=== PATIENT | female | born 1940 | race Caucasian/White ===

== ENCOUNTER → 2023-07-14 12:59 | Outpatient (REF) | payer MEDICARE, BC, SELFPAY ==
[2023-07-14 15:44] LABS: Free T4 0.85 ng/dl (0.78-2.19)
[2023-07-14 15:58] LABS: TSH 0.17 uIU/ml (0.47-4.68)
== END ==
LOC: HWLAB 12:59
PROVIDERS: ATTENDING PHYSICIAN Internal Medicine Endocrinology, Diabetes & Metabolism; FAMILY PHYSICIAN Internal Medicine
DX: E05.20 Thyrotoxicosis with toxic multinodular goiter without thyrotoxic crisis or storm (principal)
CPT/HCPCS: 36415; 84439; 84443

== ENCOUNTER → 2023-08-05 12:53 | Outpatient (REF) | payer MEDICARE, BC, SELFPAY ==
[2023-08-05 15:58] LABS: Urine Albumin Negative (Neg - Trace); Urine Bilirubin Negative (Negative); Urine Character Clear (Clear); Urine Color Yellow; Urine Glucose Negative (Negative); Urine Ketone Negative (Negative); Urine Leukocyte Negative (Negative); Urine Nitrite Negative (Negative); Urine Occult Blood Negative (Negative); Urine Urobilinogen Negative (Neg - 1+)
== END ==
LOC: HWLAB 12:53
PROVIDERS: ATTENDING PHYSICIAN Internal Medicine
DX: R10.9 Unspecified abdominal pain (principal); R10.30 Lower abdominal pain, unspecified
CPT/HCPCS: 81003; 87086

== ENCOUNTER 2023-08-06 23:58 | Inpatient (IN) | payer MEDICARE, BC, SELFPAY ==
[2023-08-06 18:07] VITALS: BP 151/93
[2023-08-06 18:41] VITALS: BP 136/87
[2023-08-06 18:49] LABS: % Basophils 0.3 % (0-2); % Eosinophils 2.1 % (0-6); % Immature Granulocytes 0.3 % (0-0.5); % Lymphocytes 14.2 % (20.5-51.1); % Monocytes 10.3 % (1.7-9.3); % Neutrophils 72.8 % (42.2-75.2); Absolute Eosinophils 0.2 10^3/uL (0-0.7); Absolute Lymphocytes 1.3 10^3/uL (1.2-3.4); Absolute Neutrophils 6.8 10^3/uL (1.4-6.5); Hematocrit 31.1 % (37.0-47.0); Hemoglobin 10.5 g/dL (12.0-16.0); Mean Corp Hgb Conc. 33.8 g/dL (33.0-37.0); Mean Corpuscular Hgb 29.7 pg (27.0-31.0); Mean Corpuscular Volume 88.1 fL (81.0-99.0); Mean Platelet Volume 8.7 fL (7.4-10.4); Nucleated Red Blood Cells % 0 %; Platelet Count 306 10^3/uL (130-400); Red Blood Cell Count 3.53 10^6/uL (4.20-5.40); Red Cell Dist. Width 13.3 % (11.5-14.5); White Blood Cell Count 9.3 10^3/uL (4.8-10.8)
[2023-08-06 19:00] VITALS: BP 131/72
--- NOTE | 2023-08-06 19:05 | ED.GENMED ---
History of Present Illness
General
Chief Complaint: Rectal Bleeding
Source: patient
Exam Limitations: none
Time Seen by Provider: 08/06/23 18:26
Nursing documentation reviewed up to this point in time: agreed with
Travel History
Have you had any contact with someone who has COVID-19?: No
Do you have any symptoms of coronavirus? Fever > 100 degrees, chills, cough, shortness of breath, sore throat, loss of taste or smell, muscle aches, or headache?: No
History of Present Illness
History of Present Illness:
Patient is an 82-year-old female presents to the ER for evaluation. Patient had an emergent laparotomy for bowel obstruction with extended right colectomy ileostomy and had a scheduled robotic ileostomy closure on 05/06. During that time she had
acute kidney injury as well as C. difficile and had incisional cellulitis and hyponatremia.
Patient presents to the ER today with complaints of constipation for the past several days and abdominal pain for the past 6 days. She reports it is left-sided and lower abdomen. She has had some back pain with it today. She did have 5 episodes
of bright red blood per rectum with clots .. She was trying to move her bowels however instead bright red blood was produced and not stool. She has been intermittently constipated. She denies any nausea vomiting fever chills. She denies urinary
frequency urgency or dysuria.
She denies any lightheaded dizziness.
She did speak to Dr. Hayward who recommended she come
Past History
Past History
ED Past Medical History: HTN, Hypercholesterolemia and Other (colitis, bleeding diverticuli)
ED Past Surgical History: Other
Social History
Tobacco: Non-smoker
Alcohol: Occasional
Drug: None
Personal:
Living: with family
Review of Systems
Review of Systems
Allergies reviewed?: Yes
All Other Systems: ROS reviewed and negative except as documented in HPI and ROS
Constitutional: Reports no symptoms; Denies fever, fatigue or chills
EENT: Reports no symptoms
Respiratory: Reports no symptoms
ABD/GI: Reports abdominal pain, nausea, constipated and other (bright red blood per rectum )
: Reports no symptoms; Denies flank pain, urgency or discharge
Musculoskeletal: Reports no symptoms
Skin: Reports no symptoms
Neurological: Reports no symptoms
Psychiatric: Reports no symptoms
Phy Exam
General Physical Exam
General Presentation: no apparent distress
General age: appears stated age
General Skin: warm and dry
General Habitus: normal
General Mental: alert
General Hydration: appears well hydrated
Gastrointestinal Exam
Gastrointestinal Exam: soft and other (tender left sided abd/lower abd region rectal exam: no active bleeding , small amt of bright red blood in rectum )
Neurological Exam
Neurological Exam: alert and oriented x3
Musculoskeletal Exam
Musculoskeletal Exam: full ROM
Skin Exam
Skin Exam: normal color and warm/dry
Psychiatric Exam
Psychiatric Exam: normal mood/affect
Course
Orders/Labs/Results
Orders:
Orders
08/06/23 18:44
Type+Screen Urgent
Complete Blood Count/With Diff Urgent
Comprehensive Metabolic Panel Urgent
08/06/23 19:21
0.9% Sodium Chloride 1000 ml [Nss] 1,000 ml IV BOLUS
08/06/23 19:30
Iohexol [Omnipaque] See Protocol PO NOW STA
08/06/23 19:31
CT Abd/pel W Iv And Oral Contr Urgent
Comment:
Reason For Exam: left sided /lower abd pain hx of bowel surg in pas
Iohexol [Omnipaque] 50 ml .ROUTE .STK-MED ONE
Ondansetron Injectable [Zofran] 4 mg IV NOW STA
Abnormal Lab Results
08/06/23
18:44
RBC 3.53 L 10^6/uL
(4.20-5.40)
Hgb 10.5 L g/dL
(12.0-16.0)
Hct 31.1 L %
(37.0-47.0)
Absolute Neuts (auto) 6.8 H 10^3/uL
(1.4-6.5)
Absolute Monos (auto) 1.0 H 10^3/uL
(0.1-0.6)
Lymphocytes % 14.2 L %
(20.5-51.1)
Monocytes % 10.3 H %
(1.7-9.3)
Sodium 133 L mmol/L
(135-145)
BUN 24 H mg/dl
(7-17)
Creatinine 1.4 H mg/dL
(0.6-1.0)
Glucose 113 H mg/dl
(70-99)
08/06/23 18:44
08/06/23 18:44
Vital Signs
Initial and Last Documented VS:
Initial Vital Signs
Temp Pulse Resp BP Pulse Ox
98.1 F 88 18 151/93 99
08/06/23 18:07 08/06/23 18:07 08/06/23 18:07 08/06/23 18:07 08/06/23 18:07
Last Documented Vital Signs
Temp Pulse Resp BP Pulse Ox
98.1 F 74 27 136/87 96
08/06/23 18:07 08/06/23 18:45 08/06/23 18:45 08/06/23 18:41 08/06/23 18:45
MDM/Problems Addressed
Differential Diagnosis Includes:
Not limited to GI bleed, diverticulitis colitis
MDM/Problems Addressed:
Patient is an 82-year-old female with history documented above with ileostomy with reversal presents to the ER complaining abdominal pain for the past several days with constipation. Today she had 5 episodes of bright red blood per rectum. She is
not on thinners. CAT scan performed no acute pathology. Patient has since also had 2 additional visits here in the ER for total of 7. Hemoglobin is stable at 10.5. Patient with mild increased BUN/creatinine. Will continue to observe for serial
hemoglobins and recheck. Patient no acute distress nontachycardic stable vital signs. adm to the hosp service
Chronic conditions affecting care:
History of ileostomy closure
*Radiology
Radiology exam reviewed: radiology read reviewed
*Pulse Oximetry
Patient hypoxic: no
*Critical Care Note
Total Time (30-74mins, 75-104mins- exclusive of procedures): Not Applicable
ED Attending Note
-
Portions of this chart may have been created with voice recognition software.� Occasional wrong word or��sound alike� substitutions may have occurred due to the inherent limitations of voice recognition software.
Discharge Plan
Departure
Patient Disposition: Admit
Date of Disposition: 08/06/23
Time of Disposition: 23:33
Admit to: Med/Surg
Admit to doctor: hospitalist
Presentation/result/management discussed w/ accepting MD/DO: Hospitalist
Condition: Fair
Covid-19: Not Applicable
Discharge Problem:
Bright red rectal bleeding, Anemia, renal insufficiency
Prescriptions:
No Action
calcium carbonate-vitamin D3 600 mg-5 mcg (200 unit) Tablet
1 tab PO BID
diltiazem HCl 240 mg Capsule,Extended Release 24 Hr
240 mg PO DAILY Qty: 0 0RF
Align 4 mg Capsule
4 mg PO DAILY
potassium chloride 20 mEq Tablet Extended Release
20 meq PO BID
cholecalciferol (vitamin D3) [Vitamin D3] 50 mcg (2,000 unit) Capsule
50 mcg PO DAILY
acetaminophen [Tylenol] 325 mg Tablet
325 mg PO Q6HPRN PRN (Reason: mild pain)
cyanocobalamin (vitamin B-12) 1,000 mcg Tablet
1,000 mcg PO DAILY
calcium polycarbophil [FiberCon] 625 mg Tablet
625 mg PO HS
pravastatin 20 mg Tablet
20 mg PO QPM
gabapentin 300 mg Capsule
600 mg PO BID
docusate sodium [Colace] 100 mg Capsule
100 mg PO HS
Referrals:
Phillip Smith DO [Family Provider] -
Interventions
Interventions:
*Risk Screen - Suicide Last Done: 08/06/23 18:07
*General Assessment Last Done: 08/06/23 18:07
*Neglect/Abuse Screening Last Done: 08/06/23 18:07
ED- Fall Risk Assessment Last Done: 08/06/23 18:55
*ED COVID-19 Vaccine History Last Done: 08/06/23 18:07
ZX-Lakpms-Vwjjrcogyx Assessment Last Done: 08/06/23 18:55
ED- Cardiac Assessment Last Done: 08/06/23 18:55
ED- Pulmonary Assessment Last Done: 08/06/23 18:55
[2023-08-06 19:10] LABS: ALT (SGPT) 15 U/L (0-35); AST (SGOT) 22 U/L (14-36); Albumin 4.2 g/dl (3.5-5.0); Alkaline Phosphatase 84 U/L (38-126); Blood Urea Nitrogen 24 mg/dl (7-17); Calcium 9.6 mg/dl (8.4-10.2); Carbon Dioxide 25 mmol/L (22-30); Chloride 102 mmol/L (98-107); Glucose 113 mg/dl (70-99); Potassium 4.5 mmol/L (3.5-5.1); Sodium 133 mmol/L (135-145); Total Bilirubin 0.3 mg/dl (0.2-1.3); Total Protein 7.4 g/dl (6.3-8.2); eGFR 37.33
[2023-08-06] MEDS: OMNIPAQUE 50 ML PO (19:36)
[2023-08-06] MEDS: NSS 1000 IV (19:39)
[2023-08-06 20:00] VITALS: BP 168/85
[2023-08-06 21:00] VITALS: BP 178/80
[2023-08-06 22:00] VITALS: BP 156/82
--- NOTE | 2023-08-06 23:59 | HPS.HSE ---
Family Physician
-
Family Physician: Phillip Smith
Chief Complaint
-
Lower GI bleeding
History of Present Illness
Patient is a pleasant 82 years old with history of hyperlipidemia, hypertension, history of bowel obstruction with extended right colectomy/ileostomy status post robotic ileostomy closure on May 06, who came to the ER with rectal bleeding.
Rectal bleeding started today morning around 11 AM, patient had 5 episodes at home and 2 episodes at the hospital.
I personally saw the bowel movement which contained bright red blood with blood clots.
Patient also was complaining of suprapubic pain and left lower quadrant pain.
Patient seen and examined at bedside, denies any chest pain or shortness of breath, no nausea, no vomiting, patient was having constipation since Thursday and she called her surgeon and advised to take Metamucil and MiraLAX.
CT scan done in the ER showed no acute finding
Medical History
Past Medical History
Past Medical History: Reports Other
Additional Past Medical History:
HTN, Hypercholesterolemia and Other (colitis, bleeding diverticuli)
Past Surgical History: Reports Other
Additional Past Surgical History:
mergent laparotomy for bowel obstruction with extended right colectomy ileostomy and had a scheduled robotic ileostomy closure on 05/06.
Social History
Tobacco: Non-smoker
Alcohol: Occasional
Personal:
Living: With Family
Family History
Family History: Not pertinent
Allergies / Home Medications
Allergies reflects when Allergies were last updated in [facility].
Home Medications with original date entered in [facility]
Allergy/Medication List:
Allergies
Allergy/AdvReac Type Severity Reaction Status Date / Time
codeine [Codeine] Allergy vomiting,di Verified 06/04/23 07:10
zziness
morphine Allergy Nausea / Verified 06/04/23 07:10
Vomiting
oxycodone HCl [From Percocet] Allergy vomiting,di Verified 06/04/23 07:10
zziness
Penicillins Allergy 50 yrs Verified 06/04/23 07:10
ago>rash,swelling
of tongue
Home Medications
calcium carbonate 600 mg-vitamin D3 5 mcg (200 unit) tablet 1 tab PO BID Supplement 01/02/23
diltiazem HCl 240 mg capsule,24 hr,extended release 240 mg PO DAILY #0 caps 01/30/23
Bifidobacterium infantis 4 mg capsule (Align) 4 mg PO DAILY Probiotic 05/25/23
cholecalciferol (vitamin D3) 50 mcg (2,000 unit) capsule (Vitamin D3) 50 mcg PO DAILY Supplement 05/25/23
potassium chloride 20 mEq tablet,extended release 20 meq PO BID Electrolyte Repletion 05/25/23
acetaminophen 325 mg tablet (Tylenol) 325 mg PO Q6HPRN PRN mild pain 06/04/23
calcium polycarbophil 625 mg tablet (FiberCon) 625 mg PO HS Supplement 06/04/23
cyanocobalamin (vitamin B-12) 1,000 mcg tablet 1,000 mcg PO DAILY Supplement 06/04/23
pravastatin 20 mg tablet 20 mg PO QPM High Cholesterol 06/04/23
docusate sodium 100 mg capsule (Colace) 100 mg PO HS 08/06/23
gabapentin 300 mg capsule 600 mg PO BID 08/06/23
Review of Systems
-
A 12 point ROS was completed and negative except as noted: Yes
Constitutional: Denies Fever, Weight Gain, Weight Loss, Fatigue or Sleep Disturbance
EENT: Denies Tearing, Sore Throat, Mouth Pain, Mouth Swelling or Runny Nose
Respiratory: Denies Cough, Hemoptysis or Trouble Breathing
Cardiac: Denies Chest Pain, Diaphoresis, Palpitations or Syncope
Abdomen/GI: Reports Abdominal Pain, Constipated and Bloody Stools; Denies Nausea, Vomiting, Diarrhea or Black Stools
: Denies Dysuria, Frequency, Flank Pain, Incontinence, Difficulty Voiding, Urgency, Bleeding or Dark Urine
Musculoskeletal: Denies Joint Pain, Joint Swelling, Muscle Pain, Muscle Stiffness or Edema
Skin: Denies Itching or Rash
Neurological: Denies Dizzy, Headache, Weakness or Numbness
Endocrine: Denies Polyuria, Polydipsia or Temp Intolerance
Hematologic/Lymphatic: Denies Bleeding, Swollen Glands or Bruising
Psych: Reports Calm; Denies Depression, Anxiety or Panic Disorder
Physical Exam
Vital Signs
Vital Signs
Temp Pulse Resp BP Pulse Ox
98.1 F 73 16 156/82 97
08/06/23 18:07 08/06/23 23:30 08/06/23 23:30 08/06/23 22:00 08/06/23 23:30
Physical Exam
General: Well Developed, Well Nourished, No Apparent Distress, Comfortable and Good Appetite; No Pain, Chills or Sweats
HEENT: NormoCephalic, Moist mucous membranes, Atraumatic, Good Dentition, PERRLA, Nose Appears Normal and Ears Appear Normal
Respiratory: Clear
Cardiac: S1/S2 and Regular Rhythm
Breast: Deferred by me
GI: Soft, Non Distended, Normal Bowel Sounds and Tender
Genito-urinary: Deferred by me
Musculoskeletal: No Clubbing, No Cyanosis and No Edema
Skin: Warm; No Rash, Jaundice, Ulcers, Lesions or Decubitus Ulcers
Neuro: Awake, Alert, Oriented, AO x 3, No Motor Deficits, Nonfocal/grossly intact and Cranial Nerves Intact
Hematologic/Lymphatic: No Lymphadenopathy
Psych: Calm
Laboratory Results
-
08/06/23 18:44
08/06/23 18:44
Laboratory Results
Total Bilirubin 0.3 mg/dl (0.2-1.3) 08/06/23 18:44
AST 22 U/L (14-36) 08/06/23 18:44
ALT 15 U/L (0-35) 08/06/23 18:44
Alkaline Phosphatase 84 U/L (38-126) 08/06/23 18:44
Data Reviewed
-
Diagnostic Radiology: Report Reviewed by me
CT Scan: Report Reviewed by me
Medical Tests (Nuc Med, Echo, EKG etc): Report Reviewed by me
Lab Data: Labs Reviewed by me
Old Records: Reviewed
Impression/Plan
-
IMPRESSION:
Patient has 82 years old with history of emergent laparotomy for bowel obstruction with extended right colectomy ileostomy, status post robotic ileostomy closure on 05/06, who came to the ER with rectal bleeding.
PLAN:
Rectal bleeding.
Patient had 7 episodes so far.
Started today.
With history of intestinal obstruction status post colectomy end ileostomy, status post robotic colostomy closure, will consult colorectal surgery.
Hemoglobin stable.
CT shows no acute finding.
Patient has a history of diverticular bleed, could be secondary to diverticulosis exacerbated by constipation.
Clear liquid diet for now.
IV fluid
health inspector food
Continue to monitor hemoglobin
History of hyperlipidemia
Continue statin
CODE STATUS: Full code
DVT prophylaxis: SCD
Diet: Regular diet
[2023-08-07] VITALS (8 sets, daily range): BP systolic 115–165; BP diastolic 63–90; BMI 27.0
[2023-08-07] MEDS: NSS 1000 IV ×2 (01:15→13:12)
[2023-08-07 01:36] LABS: Urine Albumin Negative (Neg - Trace); Urine Bilirubin Negative (Negative); Urine Character Clear (Clear); Urine Color Straw; Urine Glucose Negative (Negative); Urine Ketone Negative (Negative); Urine Leukocyte Negative (Negative); Urine Nitrite Negative (Negative); Urine Occult Blood Negative (Negative); Urine Urobilinogen Negative (Neg - 1+)
[2023-08-07] MEDS: CARDIZEM 60 MG PO (02:02)
[2023-08-07 04:54] LABS: Hematocrit 27.8 % (37.0-47.0); Hemoglobin 9.5 g/dL (12.0-16.0); Mean Corp Hgb Conc. 34.2 g/dL (33.0-37.0); Mean Corpuscular Hgb 29.9 pg (27.0-31.0); Mean Corpuscular Volume 87.4 fL (81.0-99.0); Mean Platelet Volume 9.1 fL (7.4-10.4); Platelet Count 291 10^3/uL (130-400); Red Blood Cell Count 3.18 10^6/uL (4.20-5.40); Red Cell Dist. Width 13.3 % (11.5-14.5); White Blood Cell Count 7.9 10^3/uL (4.8-10.8)
[2023-08-07 05:20] LABS: Blood Urea Nitrogen 20 mg/dl (7-17); Calcium 8.9 mg/dl (8.4-10.2); Carbon Dioxide 25 mmol/L (22-30); Chloride 106 mmol/L (98-107); Estimated Creatinine Clearance 31 ml/min; Glucose 90 mg/dl (70-99); Magnesium 2.2 mg/dl (1.6-2.3); Potassium 4.3 mmol/L (3.5-5.1); Sodium 135 mmol/L (135-145); eGFR 44.91
[2023-08-07 05:48] LABS: TSH 2.11 uIU/ml (0.47-4.68)
[2023-08-07] MEDS: NEURONTIN 600 MG PO ×2 (08:08→21:15)
[2023-08-07] MEDS: VISBIOME 1 CAP PO (08:09)
[2023-08-07] MEDS: CARDIZEM CD 240 MG PO (08:09)
--- NOTE | 2023-08-07 10:31 | PTCARENOTE ---
pt admitted to [facility] overnight. 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 pt is aaox3 and came in due to having bloody stools at home. pt has not had a bloody bm since she was
admitted to [facility] per nightshift and none so far for this nurse this morning. pt on a clear liquid diet at this time and tolerated for breakfast. colorectal consulted on this pt. hgb stable. VSS. pt ordered foot pumps but refused for this nurse this AM
at this time.
--- NOTE | 2023-08-07 12:31 | CON.CRS ---
Addendum entered and electronically signed by Madhu Moser MD 08/07/23 16:46:
I saw and examined the patient.
The PA's note was reviewed and I agree with the note.
Comment:
Patient seen in a.m. with PA.
History, labs, vitals, imaging reviewed. Patient seen and examined.
82-year-old female with a history of extended right colectomy with ileostomy and mucous fistula creation and later robotic ileostomy takedown with ileal transverse colon anastomosis by my partner Dr. Hayward last year. This was due to ischemia of the
right colon. Admitted to the hospital overnight with 7 passages of transanal clots. Etiology unknown. Hemoglobin in the ER 10.5. Down to 9.[address] scan of the abdomen and pelvis (not a CT angio) reviewed and shows diverticular
disease and no other bowel pathology. Last colonoscopy in 2022 confirmed diverticular disease. On exam at the bedside she has a normal JI. She has very mild left lower quadrant tenderness to deep palpation. Patient stable and not in extremis.
Again, etiology of bleeding is unclear. I suspect this is diverticular and will clear up. Recommend gastroenterology consultation.
Thanks.
Original Note:
Consultation
-
Date/Time Consultation Requested: 08/07/2023, 00:38
Date/Time Consultation Performed: 08/07/2023, 08:45
Requesting Provider: Lala Rhoades MD
Performing Provider: Madhu Moser MD
Reason for Consultation: rectal bleeding
Medical History
-
Chief Complaint: rectal bleeding
History of Present Illness:
82-year-old female presents emergency room yesterday complaining of rectal bleeding. The patient is a known patient of Dr. Hayward's as he performed an extended right colectomy with ileostomy and mucous fistula of the distal transverse colon on
01/30/2023 2 days after left shoulder surgery. There was ischemic right colon with patchy necrosis extending to the mid transverse colon. 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 She then underwent a robotic closure of her
ileostomy and mucous fistula on 06/05/2023. At the time of surgery there were multiple adhesions in the ileum with anastomosis to her mid/distal transverse colon.
She states that she has been constipated for about a week. She had been straining quite often and was having irregular bowel movements. She noticed large clots passing but no stool. She spoke with Dr. Hayward who advised her to undergo a CT of the
pelvis and blood work that was scheduled for today. However the patient did not want to wait and came to the emergency department. She has had 2 more bleeding episodes since arrival to the ER.
The patient states she has had diverticular bleeds before in the past. Her last colonoscopy was in 2022 which showed diverticulosis in the sigmoid colon and in the descending colon. She complains of some left-sided abdominal pain. Currently her
hemoglobin is 9.[address] of the abdomen and pelvis shows al signs are normal. No acute pathology of the abdomen or pelvis identified. There is severe diverticulosis which is stable. We have been consulted for further surgical opinion.
Past Medical History
Past Medical History: HTN, Hypercholesterolemia and Other (Diverticular bleed)
Past Surgical History: Bowel Resection (Emergent laparotomy for bowel obstruction with extended right colectomy, ileostomy, ileostomy closure)
Social History
Tobacco: Non-Smoker
Alcohol: Occasional
Personal:
Family History
Family History: Reviewed & Not Pertinent
Allergies / Home Medications
Allergy/AdvReac Type Severity Reaction Status Date / Time
codeine [Codeine] Allergy vomiting,di Verified 06/04/23 07:10
zziness
morphine Allergy Nausea / Verified 06/04/23 07:10
Vomiting
oxycodone HCl [From Percocet] Allergy vomiting,di Verified 06/04/23 07:10
zziness
Penicillins Allergy 50 yrs Verified 06/04/23 07:10
ago>rash,swelling
of tongue
Medication Instructions Recorded Confirmed Type
calcium carbonate 600 mg-vitamin 1 tab PO BID Supplement 01/02/23 08/06/23 History
D3 5 mcg (200 unit) tablet
diltiazem HCl 240 mg capsule,24 240 mg PO DAILY #0 caps 01/30/23 08/06/23 Rx
hr,extended release
Bifidobacterium infantis 4 mg 4 mg PO DAILY Probiotic 05/25/23 08/06/23 History
capsule (Align)
cholecalciferol (vitamin D3) 50 50 mcg PO DAILY Supplement 05/25/23 08/06/23 History
mcg (2,000 unit) capsule (Vitamin
D3)
potassium chloride 20 mEq 20 meq PO BID Electrolyte Repletion 05/25/23 08/06/23 History
tablet,extended release
acetaminophen 325 mg tablet 325 mg PO Q6HPRN PRN mild pain 06/04/23 08/06/23 History
(Tylenol)
calcium polycarbophil 625 mg 625 mg PO HS Supplement 06/04/23 08/06/23 History
tablet (FiberCon)
cyanocobalamin (vitamin B-12) 1,000 mcg PO DAILY Supplement 06/04/23 08/06/23 History
1,000 mcg tablet
pravastatin 20 mg tablet 20 mg PO QPM High Cholesterol 06/04/23 08/06/23 History
docusate sodium 100 mg capsule 100 mg PO HS Constipation 08/06/23 08/06/23 History
(Colace)
gabapentin 300 mg capsule 600 mg PO BID pain 08/06/23 08/06/23 History
Review of Systems
-
History Source: Patient
Abdomen/GI: Bloody Stools
A 10 point review of systems was completed, and was negative except as per HPI.
Physical Exam
Vital Signs
Temp 98.0 F 08/07/23 07:15
Pulse 68 08/07/23 07:15
Resp Rate 16 08/07/23 07:15
Blood pressure 141/78 08/07/23 08:09
SaO2 98 08/07/23 07:15
08/06/23 08/07/23 08/08/23
06:59 06:59 06:59
Actual Weight 64.773 kg
Body Mass Index (BMI) 27.0
Lab Results / Allergies
08/07/23 03:59
08/07/23 03:59
WBC 7.9 10^3/uL (4.8-10.8) 08/07/23 03:59
Hgb 9.5 g/dL (12.0-16.0) L 08/07/23 03:59
Hct 27.8 % (37.0-47.0) L 08/07/23 03:59
Plt Count 291 10^3/uL (130-400) 08/07/23 03:59
Abs Immat Gran (auto) 0.0 10^3/uL (0-0.05) 08/06/23 18:44
Neutrophils % 72.8 % (42.2-75.2) 08/06/23 18:44
Allergy/AdvReac Type Severity Reaction Status Date / Time
codeine [Codeine] Allergy vomiting,di Verified 06/04/23 07:10
zziness
morphine Allergy Nausea / Verified 06/04/23 07:10
Vomiting
oxycodone HCl [From Percocet] Allergy vomiting,di Verified 06/04/23 07:10
zziness
Penicillins Allergy 50 yrs Verified 06/04/23 07:10
ago>rash,swelling
of tongue
Physical Exam
General: Well Developed and Well Nourished
GI: Soft, Non Tender and Distended
Rectal: Other (Normal tone, no external hemorrhoids noted, possibly a small speck of blood on the gloved finger)
Neuro: AO x 3
Psych: Calm
Data Reviewed
-
CT Scan: Image Personally Visualized and interpreted, Report Reviewed by me and Discussed with Patient
Labs: Labs Reviewed by me, Discussed with Physician and Discussed with Patient
Old Records: Reviewed
Assessment / Plan
-
Assessment: 82-year-old female with a history of emergent laparotomy with extended right colectomy and ileostomy status post reversal presents with rectal bleeding
Plan:
There is no indication for surgery at this time. She had a recent colonoscopy which showed diverticulosis. Her anal exam is essentially benign. We recommend a gastroenterology consult for further workup of the bleeding.
--- NOTE | 2023-08-07 12:48 | W.PN.HOSP.TC ---
Today's Communication/Plan
-
GI consulted
monitor CBC
Diet as per GI
Assessment / Plan
Assessment / Plan
Physical Exam
General: Well Developed, Well Nourished, No Apparent Distress, Comfortable and Good Appetite; No Pain, Chills or Sweats
HEENT: NormoCephalic, Moist mucous membranes, Atraumatic, Good Dentition, PERRLA, Nose Appears Normal and Ears Appear Normal
Respiratory: Clear
Cardiac: S1/S2 and Regular Rhythm
Breast: Deferred by me
GI: Soft, Non Distended, Normal Bowel Sounds and Tender
Genito-urinary: Deferred by me
Musculoskeletal: No Clubbing, No Cyanosis and No Edema
Skin: Warm; No Rash, Jaundice, Ulcers, Lesions or Decubitus Ulcers
Neuro: Awake, Alert, Oriented, AO x 3, No Motor Deficits, Nonfocal/grossly intact and Cranial Nerves Intact
Hematologic/Lymphatic: No Lymphadenopathy
Psych: Calm
IMPRESSION:
Patient has 82 years old with history of emergent laparotomy for bowel obstruction with extended right colectomy ileostomy, status post robotic ileostomy closure on 05/06, who came to the ER with rectal bleeding.
PLAN:
Rectal bleeding
Acute Blood Loss Anemia
Patient had 7 episodes ; none since yesterday
rectal exam unremarkable as per CRS, most likely diverticular bleed
GI consulted
Can advance diet for now until further plans from GI
Continue to monitor hemoglobin
History of hyperlipidemia
Continue statin
#Hyponatremia, POA
-resolved
#Diffuse bladder thickening
-monitor UO
-no urinary/UTI symptoms
CODE STATUS: Full code
DVT prophylaxis: SCD due to bleed
Diet: Regular diet
Anticipated Discharge: 24 - 48 hours
Subjective/Interval History
-
Date of Service: August 07, 2023
No episodes of bleeding since yesterday
Objective Data
-
Labs:
Laboratory Results
08/07/23
03:59
WBC 7.9
Hgb 9.5 L
Hct 27.8 L
Plt Count 291
Sodium 135
Potassium 4.3
Chloride 106
Carbon Dioxide 25
BUN 20 H
Creatinine 1.2 H
Glucose 90
Calcium 8.9
Vital Signs:
Vital Signs
Temp Pulse Resp BP Pulse Ox
97.8 F 61 16 115/63 98
08/07/23 11:10 08/07/23 11:10 08/07/23 11:10 08/07/23 11:10 08/07/23 11:10
I&O
08/06/23 08/07/23 08/08/23
06:59 06:59 06:59
Intake Total 480 / 480
Balance 480 / 480
Review of Systems
-
History Source: Patient
All other systems: Not reviewed unless documented
Physical Exam
-
General: No Apparent Distress
HEENT: PERRLA
Respiratory: Clear to Auscultation; Negative Wheezes
Cardiac: S1/S2
GI: Soft
Musculoskeletal: No Edema
Skin: Warm and Dry; Negative Rash
Neuro: AO x 3
Psych: Calm
Data Reviewed
-
CT Scan: Image personally visualized and interpreted and Report Reviewed by me
Labs: Labs Reviewed by me
--- NOTE | 2023-08-07 13:25 | CON.GI ---
Addendum entered and electronically signed by Bruna Rojas MD 08/07/23 17:30:
I saw and examined the patient.
The CASING MIXER or PA's note was reviewed and I agree with the note.
Comment:
This patient is an 82-year-old woman with a history of hypertension, diverticular bleed with prior bowel obstruction and extended right colectomy. She did have a closure of prior ileostomy in May as well as a colonoscopy in April with known
diverticular disease. She did have abdominal pain and back pain with some rectal bleeding which is now improved. She did have a CAT scan with no acute findings. She did have a bowel movement today with only traces amount of red blood at the end.
She did not have any abdominal pain. She does note extensive constipation and feels that that may have provoked it as she was straining. She did get a laxative today and states that she markedly feels better
abd; soft, nontender
impression:
constipation
rectal bleeding
plan:
continue colace
pt would like prune juice
could be hemorrhoids with straining and use anusol HC nightly
follow hgb
outpatient f/u
Original Note:
Consultation
-
Date/Time Consultation Requested: 08/07/23 1240
Date/Time Consultation Performed: 08/07/23 1330
Requesting Provider: Eugenio Ruth MD
Performing Provider: NOEL Pool, Bruna Rojas MD
Reason for Consultation: rectal bleeding
Medical History
Chief Complaint / HPI
Chief Complaint: rectal bleeding
History of Present Illness:
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 she had robotic closure
of ileostomy mucous fistula in May. She now presents with onset of constipation with straining. She then had abdominal pain with back pain then rectal bleeding, passing large clots with about 7 episodes. Bleeding now improved. CT A/p IV
and oral with no acute findings, renal cysts, diverticulosis, bladder wall thickening.
Pt otherwise denies dysphagia, GERD, nausea, vomiting,diarrhea or black stools. last 03/31/23- colonoscopy -diverticulosis
Past Medical History
Past Medical History: HTN, Hypercholesterolemia and Other (chronic constipation, colon polyps, HTN, hypercholesterolemia, colitis, diverticulosis with prior diverticular bleed, temporal arteritis, spinal stenosis, gout,)
Past Surgical History: Bowel Resection (with extended right colectomy/ileostomy s/p robotic ileostomy closure 05/2023 ) and Orthopedic (b/l shoulder surgery )
Social History
Tobacco: Former Smoker
Alcohol: Occasional (rare )
Drug: None
Personal:
Living: With Family
Employment: Retired
Family History
Family History: Other (no family hx colon CA or polyps)
Allergies / Home Medications
Allergy/AdvReac Type Severity Reaction Status Date / Time
codeine [Codeine] Allergy vomiting,di Verified 06/04/23 07:10
zziness
morphine Allergy Nausea / Verified 06/04/23 07:10
Vomiting
oxycodone HCl [From Percocet] Allergy vomiting,di Verified 06/04/23 07:10
zziness
Penicillins Allergy 50 yrs Verified 06/04/23 07:10
ago>rash,swelling
of tongue
Medication Instructions Recorded
calcium carbonate 600 mg-vitamin 1 tab PO BID Supplement 01/02/23
D3 5 mcg (200 unit) tablet
diltiazem HCl 240 mg capsule,24 240 mg PO DAILY #0 caps 01/30/23
hr,extended release
Bifidobacterium infantis 4 mg 4 mg PO DAILY Probiotic 05/25/23
capsule (Align)
cholecalciferol (vitamin D3) 50 50 mcg PO DAILY Supplement 05/25/23
mcg (2,000 unit) capsule (Vitamin
D3)
potassium chloride 20 mEq 20 meq PO BID Electrolyte Repletion 05/25/23
tablet,extended release
acetaminophen 325 mg tablet 325 mg PO Q6HPRN PRN mild pain 06/04/23
(Tylenol)
calcium polycarbophil 625 mg 625 mg PO HS Supplement 06/04/23
tablet (FiberCon)
cyanocobalamin (vitamin B-12) 1,000 mcg PO DAILY Supplement 06/04/23
1,000 mcg tablet
pravastatin 20 mg tablet 20 mg PO QPM High Cholesterol 06/04/23
docusate sodium 100 mg capsule 100 mg PO HS Constipation 08/06/23
(Colace)
gabapentin 300 mg capsule 600 mg PO BID pain 08/06/23
Review of Systems
-
History Source: Patient and Family
Constitutional: Reports No Symptoms
EENT: Reports No Symptoms
Respiratory: Reports No Symptoms
Cardiac: Reports No Symptoms
Abdomen/GI: Reports Abdominal Pain, Constipated and Bloody Stools
: Reports No Symptoms
Skin: Reports No Symptoms
Neurological: Reports Weakness
Hematologic/Lymphatic: Reports Bleeding
Vital Signs
Temp Pulse Resp BP Pulse Ox
97.8 F 61 16 115/63 98
08/07/23 11:10 08/07/23 11:10 08/07/23 11:10 08/07/23 11:10 08/07/23 11:10
Physical Exam
Exam
General: Well Developed, Well Nourished and No Apparent Distress
HEENT: Normocephalic and Anicteric
Respiratory: Clear and Wheezes
Cardiac: Regular Rhythm
GI: Soft, Non Distended, Tender (minimal LLQ) and Other (mid line abd scar healed and prior ostomy and fistula areas healed )
Musculoskeletal: No Clubbing and No Cyanosis
Skin: Warm and Dry
Neuro: Awake, Alert and AO x 3
Psych: Calm
Results
WBC 7.9 10^3/uL (4.8-10.8) 08/07/23 03:59
Hgb 9.5 g/dL (12.0-16.0) L 08/07/23 03:59
Hct 27.8 % (37.0-47.0) L 08/07/23 03:59
MCV 87.4 fL (81.0-99.0) 08/07/23 03:59
Plt Count 291 10^3/uL (130-400) 08/07/23 03:59
Absolute Neuts (auto) 6.8 10^3/uL (1.4-6.5) H 08/06/23 18:44
Sodium 135 mmol/L (135-145) 08/07/23 03:59
Potassium 4.3 mmol/L (3.5-5.1) 08/07/23 03:59
Chloride 106 mmol/L (98-107) 08/07/23 03:59
Carbon Dioxide 25 mmol/L (22-30) 08/07/23 03:59
BUN 20 mg/dl (7-17) H 08/07/23 03:59
Creatinine 1.2 mg/dL (0.6-1.0) H 08/07/23 03:59
Calcium 8.9 mg/dl (8.4-10.2) 08/07/23 03:59
Total Bilirubin 0.3 mg/dl (0.2-1.3) 08/06/23 18:44
AST 22 U/L (14-36) 08/06/23 18:44
ALT 15 U/L (0-35) 08/06/23 18:44
Alkaline Phosphatase 84 U/L (38-126) 08/06/23 18:44
Diagnostic Image Results:
08/06/23 CT A/p
No acute pathology of the abdomen or pelvis identified.
Too small to characterize hypodense hepatic lesions likely small cyst or hemangioma. Stable
Bilateral simple renal cysts. Bilateral too small to characterize hypodense renal lesions likely benign cysts. Stable
Severe diverticulosis. Stable
Mild diffuse bladder wall thickening. This can be seen with cystitis or bladder outlet obstruction
pessary in place
Prior GI Procedures:
Colonoscopy:� 08/2020 [facility]- 5 -4--8 mm polyp at Splenic flexure, TC, hepatic flexure, AC, diverticulosis, IH bx TA
Assessment / Plan
-
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 she had robotic
closure of ileostomy mucous fistula in May. She now presents with onset of constipation with straining. She then had abdominal pain with back pain after miralax then rectal bleeding, passing large clots with about 7 episodes. Bleeding now
improved. CT A/p IV and oral with no acute findings, renal cysts, diverticulosis, bladder wall thickening.
-rectal bleeding
-constipation
-LLQ abdominal pain and back pain
-s/p exp lap 01/2023 with extended right colectomy and end ileostomy with mucous fistula and closure in May
-hx diverticulosis
-anemia
-s/p left should arthroplasty 01/30 with post-op narcotics
other medical problems:
-colon polyps
- HTN
-hypercholesterolemia
-hx diverticular bleed
-temporal arteritis
-spinal stenosis
-gout
-CKD
PLAN:
Etiology of bleeding related to diverticular bleed with multiple blood stools then resolved vs colitis with some abdominal pain but not noted on Ct vs other
bleeding now improved
discussed concern for chronic constipation-- currently on colace and fiber daily prior to admission
pt wishes to add Prune juice daily-- discussed adding 1/2 dose of miralax with prune juice as noted with increased abdominal pain with full dose miralax prior to admission
can also use Mag citrate periodically if severe constipation but discussed to avoid if any issues with vomiting
OP follow up for further adjustment of regiment -- advised to call office with problems
trend hbg and stool record
maintain adequate perfusion
currently on residue diet
long discussion with patient for follow up. - She was frustrated with lack of response from GI office in past with prior surgery. She is willing to see Dr. Holley in follow up and aware may take time to schedule - message sent to office to
schedule.
return to hospital for recurrent bleeding
updated spouse at bedside
-
-
Thank you for consultation and allowing me to participate in the patient's care. Please call the professional shopper GI physician during the after hours with any questions or concerns.
--- NOTE | 2023-08-07 15:29 | CM ---
Reviewed the chart notes and spoke with the patient and her spouse at the bedside. The patient resides with her spouse in a one story home with one step to enter. The patient reports no DME use. The patient has had [facility] in the past and been to
[facility]. The patient confirmed her pharmacy of choice is the [facility]. CM continues to be available to patient/family and is monitoring medical plan for needs at discharge.
Plan: Discharge to home when medically stable. No anticipated needs identified at this time.
[2023-08-07] MEDS: PRAVACHOL 20 MG PO (17:29)
[2023-08-07] MEDS: TYLENOL 325 MG PO (17:32)
[2023-08-07] MEDS: FIBERCON 625 MG PO (21:15)
[2023-08-07] MEDS: COLACE 100 MG PO (21:15)
[2023-08-07] MEDS: ANUSOL HC 25 MG RECTAL (21:15)
[2023-08-08] MEDS: NSS 1000 IV ×2 (01:48→10:02)
[2023-08-08 03:34] VITALS: BP 139/75
[2023-08-08 07:45] VITALS: BP 134/86
[2023-08-08] MEDS: VISBIOME 1 CAP PO (08:34)
[2023-08-08] MEDS: CARDIZEM CD 240 MG PO (08:34)
[2023-08-08] MEDS: NEURONTIN 600 MG PO ×2 (08:34→20:53)
[2023-08-08 09:37] LABS: Hematocrit 26.5 % (37.0-47.0); Hemoglobin 8.6 g/dL (12.0-16.0); Mean Corp Hgb Conc. 32.5 g/dL (33.0-37.0); Mean Corpuscular Hgb 29.3 pg (27.0-31.0); Mean Corpuscular Volume 90.1 fL (81.0-99.0); Mean Platelet Volume 9.2 fL (7.4-10.4); Platelet Count 279 10^3/uL (130-400); Red Blood Cell Count 2.94 10^6/uL (4.20-5.40); Red Cell Dist. Width 13.2 % (11.5-14.5); White Blood Cell Count 8.2 10^3/uL (4.8-10.8)
[2023-08-08] MEDS: TYLENOL 325 MG PO ×2 (10:07→16:10)
--- NOTE | 2023-08-08 10:16 | PTCARENOTE ---
pt had three blood tinged stools this AM witnessed by this nurse. after speaking to GI pt changed from low residue diet to clear liquids at this time. pt experiencing 'waistband level' abdominal pain and was given prn tylenol this AM. See MAR. pt
receiving IVF NSS @60ml/hr at this time.
[2023-08-08 10:53] LABS: Blood Urea Nitrogen 17 mg/dl (7-17); Calcium 8.8 mg/dl (8.4-10.2); Carbon Dioxide 25 mmol/L (22-30); Chloride 107 mmol/L (98-107); Estimated Creatinine Clearance 33 ml/min; Glucose 89 mg/dl (70-99); Potassium 4.1 mmol/L (3.5-5.1); Sodium 139 mmol/L (135-145); eGFR 49.86
[2023-08-08 11:28] VITALS: BP 124/67
--- NOTE | 2023-08-08 13:34 | W.PN.GI.CBS2 ---
Today's Communication / Plan
-
monitor hgb
Assessment / Plan
-
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 she had robotic
closure of ileostomy mucous fistula in May. She now presents with onset of constipation with straining. She then had abdominal pain with back pain after miralax then rectal bleeding, passing large clots with about 7 episodes. Bleeding now
improved. CT A/p IV and oral with no acute findings, renal cysts, diverticulosis, bladder wall thickening.
-rectal bleeding
-constipation
-LLQ abdominal pain and back pain
-s/p exp lap 01/2023 with extended right colectomy and end ileostomy with mucous fistula and closure in May
-hx diverticulosis
-anemia
-s/p left should arthroplasty 01/30 with post-op narcotics
other medical problems:
-colon polyps
- HTN
-hypercholesterolemia
-hx diverticular bleed
-temporal arteritis
-spinal stenosis
-gout
-CKD
PLAN:
Monitor hgb, did drop one gram
if bleeding/hgb drop continues will need colonoscopy
If it stops then can manage conservatively as she did have a colonoscopy less htan 6 months ago
clear liquids
Subjective
Subjective
Date of Service: August 08, 2023
Pt did well overnight with less gas. This am had some stool mixed with blood. no abd pain or dizziness
Objective
Data Reviewed
Laboratory Data:
Laboratory Results
08/08/23 09:12
08/08/23 09:12
Laboratory Results
Magnesium 2.2 mg/dl (1.6-2.3) 08/07/23 03:59
Total Bilirubin 0.3 mg/dl (0.2-1.3) 08/06/23 18:44
AST 22 U/L (14-36) 08/06/23 18:44
ALT 15 U/L (0-35) 08/06/23 18:44
Alkaline Phosphatase 84 U/L (38-126) 08/06/23 18:44
Vital Signs and I&O:
Vital Signs
Temp Pulse Resp BP Pulse Ox
98.1 F 68 14 124/67 97
08/08/23 11:28 08/08/23 11:28 08/08/23 11:28 08/08/23 11:28 08/08/23 11:28
I&O
08/07/23 08/08/23 08/09/23
06:59 06:59 06:59
Intake Total 480 / 480 2300 / 2300
Balance 480 / 480 2300 / 2300
Physical Exam
Physical Exam
GI: Soft and Non Distended (less distended)
Neuro: Non Focal
--- NOTE | 2023-08-08 13:42 | W.PN.HOSP.TC ---
Today's Communication/Plan
-
Monitor stool, hemoglobin
Clear liquid diet
Assessment / Plan
Assessment / Plan
Physical Exam
General: Well Developed, Well Nourished, No Apparent Distress, Comfortable and Good Appetite; No Pain, Chills or Sweats
HEENT: NormoCephalic, Moist mucous membranes, Atraumatic, Good Dentition, PERRLA, Nose Appears Normal and Ears Appear Normal
Respiratory: Clear
Cardiac: S1/S2 and Regular Rhythm
Breast: Deferred by me
GI: Soft, Non Distended, Normal Bowel Sounds and Tender
Genito-urinary: Deferred by me
Musculoskeletal: No Clubbing, No Cyanosis and No Edema
Skin: Warm; No Rash, Jaundice, Ulcers, Lesions or Decubitus Ulcers
Neuro: Awake, Alert, Oriented, AO x 3, No Motor Deficits, Nonfocal/grossly intact and Cranial Nerves Intact
Hematologic/Lymphatic: No Lymphadenopathy
Psych: Calm
IMPRESSION:
Patient has 82 years old with history of emergent laparotomy for bowel obstruction with extended right colectomy ileostomy, status post robotic ileostomy closure on 05/06, who came to the ER with rectal bleeding.
PLAN:
#Rectal bleeding
#Acute Blood Loss Anemia
Patient had 7 episodes upon admission, 3 episodes this morning
rectal exam unremarkable as per CRS, most likely diverticular bleed
GI consulted
Continue monitor hemoglobin
If bleeding, hemoglobin drop continues, will tentatively plan for colonoscopy probably Thursday
If bleeding stops, manage conservatively and colonoscopy 6 months
Clear liquids
#History of hyperlipidemia
Continue statin
#Hyponatremia, POA
-resolved
#Diffuse bladder thickening
-monitor UO
-no urinary/UTI symptoms
CODE STATUS: Full code
DVT prophylaxis: SCD due to bleed
Diet: Regular diet
Anticipated Discharge: > 48 hours
Subjective/Interval History
-
Date of Service: August 08, 2023
3 bloody bowel movements, evidence of clots this morning
Objective Data
-
Labs:
Laboratory Results
08/08/23
09:12
WBC 8.2
Hgb 8.6 L
Hct 26.5 L
Plt Count 279
Sodium 139
Potassium 4.1
Chloride 107
Carbon Dioxide 25
BUN 17
Creatinine 1.1 H
Glucose 89
Calcium 8.8
Vital Signs:
Vital Signs
Temp Pulse Resp BP Pulse Ox
98.1 F 68 14 124/67 97
08/08/23 11:28 08/08/23 11:28 08/08/23 11:28 08/08/23 11:28 08/08/23 11:28
I&O
08/07/23 08/08/23 08/09/23
06:59 06:59 06:59
Intake Total 480 / 480 2300 / 2300
Balance 480 / 480 2300 / 2300
Review of Systems
-
History Source: Patient
All other systems: Not reviewed unless documented
Physical Exam
-
General: No Apparent Distress
HEENT: PERRLA
Respiratory: Clear to Auscultation; Negative Wheezes
Cardiac: S1/S2
GI: Soft
Musculoskeletal: No Edema
Skin: Warm and Dry; Negative Rash
Neuro: AO x 3
Psych: Calm
Data Reviewed
-
CT Scan: Image personally visualized and interpreted and Report Reviewed by me
Labs: Labs Reviewed by me
[2023-08-08 15:15] VITALS: BP 127/68
[2023-08-08] MEDS: PRAVACHOL 20 MG PO (17:13)
[2023-08-08 19:55] VITALS: BP 113/75
[2023-08-08] MEDS: FIBERCON 625 MG PO (20:53)
[2023-08-08] MEDS: COLACE 100 MG PO (20:53)
[2023-08-08] MEDS: ANUSOL HC 25 MG RECTAL (20:54)
[2023-08-08 23:07] VITALS: BP 128/76
[2023-08-09 03:36] VITALS: BP 137/76
[2023-08-09 07:35] VITALS: BP 140/75
[2023-08-09] MEDS: NEURONTIN 600 MG PO ×2 (07:58→20:17)
[2023-08-09] MEDS: CARDIZEM CD 240 MG PO (07:59)
[2023-08-09] MEDS: VISBIOME 1 CAP PO (07:59)
[2023-08-09 08:26] LABS: Hematocrit 24.7 % (37.0-47.0); Hemoglobin 8.3 g/dL (12.0-16.0); Mean Corp Hgb Conc. 33.6 g/dL (33.0-37.0); Mean Corpuscular Hgb 30.2 pg (27.0-31.0); Mean Corpuscular Volume 89.8 fL (81.0-99.0); Mean Platelet Volume 8.7 fL (7.4-10.4); Platelet Count 260 10^3/uL (130-400); Red Blood Cell Count 2.75 10^6/uL (4.20-5.40); Red Cell Dist. Width 13.4 % (11.5-14.5); White Blood Cell Count 6.5 10^3/uL (4.8-10.8)
--- NOTE | 2023-08-09 08:41 | W.PN.GI.CBS2 ---
Today's Communication / Plan
-
regular diet
Assessment / Plan
-
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 she had robotic
closure of ileostomy mucous fistula in May. She now presents with onset of constipation with straining. She then had abdominal pain with back pain after miralax then rectal bleeding, passing large clots with about 7 episodes. Bleeding now
improved. CT A/p IV and oral with no acute findings, renal cysts, diverticulosis, bladder wall thickening.
-rectal bleeding
-constipation
-LLQ abdominal pain and back pain
-s/p exp lap 01/2023 with extended right colectomy and end ileostomy with mucous fistula and closure in May
-hx diverticulosis
-anemia
-s/p left should arthroplasty 01/30 with post-op narcotics
other medical problems:
-colon polyps
- HTN
-hypercholesterolemia
-hx diverticular bleed
-temporal arteritis
-spinal stenosis
-gout
-CKD
PLAN:
- hgb now stabilizing
- anusol HC suppositories
- would still manage conservatively as she did have a colonoscopy less than 6 months ago
- regular diet
Subjective
Subjective
Date of Service: August 09, 2023
Feels much better since yesterday. I did see her 'bloody stool' yesterday and I do think some was old
No abdominal pain, no bleeding in last 24 hrs
Objective
Data Reviewed
Laboratory Data:
Laboratory Results
08/09/23 08:13
Laboratory Results
Magnesium 2.2 mg/dl (1.6-2.3) 08/07/23 03:59
Total Bilirubin 0.3 mg/dl (0.2-1.3) 08/06/23 18:44
AST 22 U/L (14-36) 08/06/23 18:44
ALT 15 U/L (0-35) 08/06/23 18:44
Alkaline Phosphatase 84 U/L (38-126) 08/06/23 18:44
Vital Signs and I&O:
Vital Signs
Temp Pulse Resp BP Pulse Ox
97.8 F 73 14 140/75 96
08/09/23 07:35 08/09/23 07:35 08/09/23 07:35 08/09/23 07:59 08/09/23 07:35
I&O
08/08/23 08/09/23 08/10/23
06:59 06:59 06:59
Intake Total 2299 / 2299
Balance 2299 / 2299
Physical Exam
Physical Exam
GI: Soft, Non Distended and Non Tender
[2023-08-09 08:52] LABS: Blood Urea Nitrogen 11 mg/dl (7-17); Carbon Dioxide 25 mmol/L (22-30); Chloride 103 mmol/L (98-107); Estimated Creatinine Clearance 33 ml/min; Glucose 93 mg/dl (70-99); Potassium 3.9 mmol/L (3.5-5.1); Sodium 137 mmol/L (135-145); eGFR 49.86
--- NOTE | 2023-08-09 13:14 | W.PN.HOSP.TC ---
Today's Communication/Plan
-
Monitor bowel movement, hemoglobin
Trial regular diet
Possible scope if continued to have bloody stool
Assessment / Plan
Assessment / Plan
Physical Exam
General: Well Developed, Well Nourished, No Apparent Distress, Comfortable and Good Appetite; No Pain, Chills or Sweats
HEENT: NormoCephalic, Moist mucous membranes, Atraumatic, Good Dentition, PERRLA, Nose Appears Normal and Ears Appear Normal
Respiratory: Clear
Cardiac: S1/S2 and Regular Rhythm
Breast: Deferred by me
GI: Soft, Non Distended, Normal Bowel Sounds and Tender
Genito-urinary: Deferred by me
Musculoskeletal: No Clubbing, No Cyanosis and No Edema
Skin: Warm; No Rash, Jaundice, Ulcers, Lesions or Decubitus Ulcers
Neuro: Awake, Alert, Oriented, AO x 3, No Motor Deficits, Nonfocal/grossly intact and Cranial Nerves Intact
Hematologic/Lymphatic: No Lymphadenopathy
Psych: Calm
IMPRESSION:
Patient has 82 years old with history of emergent laparotomy for bowel obstruction with extended right colectomy ileostomy, status post robotic ileostomy closure on 05/06, who came to the ER with rectal bleeding.
PLAN:
#Rectal bleeding
#Acute Blood Loss Anemia
Multiple episodes, still with bowel movement this morning with some blood
rectal exam unremarkable as per CRS, most likely diverticular bleed
GI consulted
Continue monitor hemoglobin
Regular diet, possible colonoscopy if continues to bleed
#History of hyperlipidemia
Continue statin
#Hyponatremia, POA
-resolved
#Diffuse bladder thickening
-monitor UO
-no urinary/UTI symptoms
CODE STATUS: Full code
DVT prophylaxis: SCD due to bleed
Diet: Regular diet
Anticipated Discharge: 24 - 48 hours
Subjective/Interval History
-
Date of Service: August 09, 2023
Bowel movement with blood tinge this morning
Objective Data
-
Labs:
Laboratory Results
08/09/23
08:13
WBC 6.5
Hgb 8.3 L
Hct 24.7 L
Plt Count 260
Sodium 137
Potassium 3.9
Chloride 103
Carbon Dioxide 25
BUN 11
Creatinine 1.1 H
Glucose 93
Calcium 9.0
Vital Signs:
Vital Signs
Temp Pulse Resp BP Pulse Ox
97.8 F 73 14 140/75 96
08/09/23 07:35 08/09/23 07:35 08/09/23 07:35 08/09/23 07:59 08/09/23 10:50
I&O
08/08/23 08/09/23 08/10/23
06:59 06:59 06:59
Intake Total 2299
Balance 2299
Review of Systems
-
History Source: Patient
All other systems: Not reviewed unless documented
Physical Exam
-
General: No Apparent Distress
HEENT: PERRLA
Respiratory: Clear to Auscultation; Negative Wheezes
Cardiac: S1/S2
GI: Soft
Musculoskeletal: No Edema
Skin: Warm and Dry; Negative Rash
Neuro: AO x 3
Psych: Calm
Data Reviewed
-
CT Scan: Image personally visualized and interpreted and Report Reviewed by me
Labs: Labs Reviewed by me
[2023-08-09 15:33] VITALS: BP 128/71
--- NOTE | 2023-08-09 17:21 | PTCARENOTE ---
pt upgraded this AM to regular diet. in total for this nurse pt has had 3 blood tinged soft/ loose stools. MD made aware and hgb ordered to be obtained this evening. pt states she has a feeling of fullness in her abdomen and this nurse notes
hyperactive BS.
[2023-08-09] MEDS: PRAVACHOL 20 MG PO (17:25)
[2023-08-09 18:27] LABS: Hemoglobin 8.1 g/dL (12.0-16.0)
[2023-08-09] MEDS: TYLENOL 325 MG PO (18:28)
[2023-08-09] MEDS: FIBERCON 625 MG PO (22:13)
[2023-08-09] MEDS: ANUSOL HC 25 MG RECTAL (22:13)
[2023-08-09] MEDS: COLACE PO (22:14)
[2023-08-09 23:23] VITALS: BP 138/67
[2023-08-09 23:33] LABS: Hematocrit 22.9 % (37.0-47.0); Hemoglobin 7.6 g/dL (12.0-16.0)
--- NOTE | 2023-08-09 23:47 | PTCARENOTE ---
Informed in report that patient had 3 bloody stools throughout the day. Patients Hgb. has been trending down 8.6, 8.3, 8.1. Messaged [employer]. Ordered repeated Hgb. Resulted 7.6. Informed [employer].
[2023-08-10 04:55] LABS: Hematocrit 25.2 % (37.0-47.0); Hemoglobin 8.4 g/dL (12.0-16.0); Mean Corp Hgb Conc. 33.3 g/dL (33.0-37.0); Mean Corpuscular Hgb 29.5 pg (27.0-31.0); Mean Corpuscular Volume 88.4 fL (81.0-99.0); Mean Platelet Volume 9.7 fL (7.4-10.4); Platelet Count 247 10^3/uL (130-400); Red Blood Cell Count 2.85 10^6/uL (4.20-5.40); Red Cell Dist. Width 13.2 % (11.5-14.5); White Blood Cell Count 7.8 10^3/uL (4.8-10.8)
[2023-08-10 05:22] LABS: Blood Urea Nitrogen 16 mg/dl (7-17); Calcium 8.7 mg/dl (8.4-10.2); Carbon Dioxide 25 mmol/L (22-30); Chloride 104 mmol/L (98-107); Estimated Creatinine Clearance 31 ml/min; Glucose 86 mg/dl (70-99); Potassium 3.8 mmol/L (3.5-5.1); Sodium 136 mmol/L (135-145); eGFR 44.91
[2023-08-10 07:15] VITALS: BP 128/61
[2023-08-10] MEDS: CARDIZEM CD 240 MG PO (08:34)
[2023-08-10] MEDS: NEURONTIN 600 MG PO ×2 (08:34→19:41)
[2023-08-10] MEDS: VISBIOME 1 CAP PO (08:34)
--- NOTE | 2023-08-10 10:54 | W.PN.HOSP.TC ---
Today's Communication/Plan
-
follow CBC
check C. Diff
Assessment / Plan
Assessment / Plan
IMPRESSION:
Patient has 82 years old with history of emergent laparotomy for bowel obstruction with extended right colectomy ileostomy, status post robotic ileostomy closure on 05/06, who came to the ER with rectal bleeding. Hx of diverticulosis
PLAN:
#Rectal bleeding
#Acute Blood Loss Anemia
Multiple episodes, still with bowel movement 3/3 morning with some blood
rectal exam unremarkable as per CRS, most likely diverticular bleed
GI consulted
Continue monitor hemoglobin
Hgb 10.5-->9.5-->8.6-->8.3-->8.1-->7.6-->8.4
Regular diet, possible colonoscopy/flex sig as per GI
Pt had +C.Diff on 06/10/23, this would be an atypical presentation for recurrence, but will request recheck
#History of hyperlipidemia
Continue statin
#Hyponatremia, POA
-resolved
#Diffuse bladder thickening
-monitor UO
-no urinary/UTI symptoms
CODE STATUS: Full code
DVT prophylaxis: SCD due to bleed
Diet: Regular diet
Anticipated Discharge: 24 - 48 hours
Subjective/Interval History
-
Date of Service: August 10, 2023
Still with back pain, which pt is very concerned about
Objective Data
-
Labs:
Laboratory Results
08/09/23 08/10/23
23:08 04:07
WBC 7.8
Hgb 7.6 L 8.4 L
Hct 22.9 L 25.2 L
Plt Count 247
Sodium 136
Potassium 3.8
Chloride 104
Carbon Dioxide 25
BUN 16
Creatinine 1.2 H
Glucose 86
Calcium 8.7
Vital Signs:
Vital Signs
Temp Pulse Resp BP Pulse Ox
98.1 F 72 16 128/61 95
08/10/23 07:15 08/10/23 07:15 08/10/23 07:15 08/10/23 08:34 08/10/23 10:37
I&O
08/09/23 08/10/23 08/11/23
06:59 06:59 06:59
Intake Total 1959
Balance 1959
Review of Systems
-
History Source: Patient, Physician (call placed and discussed with Dr. Hayward) and Coordinated Provider
Constitutional: Denies Fever (afebrile)
Respiratory: Reports No Symptoms; Denies Trouble Breathing
Cardiac: Reports No Symptoms; Denies Chest Pain
Abdomen/GI: Reports Abdominal Pain (significant lower abd cramping) and Bloody Stools (essentially none past 24 hrs, as per pt, did have small amount of bloody streaking on recent BM)
Genitourinary: Reports No Symptoms
Musculoskeletal: Reports No Symptoms
Physical Exam
-
General: Well Developed, Well Nourished and No Apparent Distress; Negative Appears in Distress
HEENT: Normocephalic, Atraumatic and Moist Mucous Membranes
Respiratory: Clear to Auscultation; Negative Wheezes, Rales or Rhonchi
Cardiac: Regular Rhythm and S1/S2
GI: Soft, Normal Bowel Sounds (mildly hyperactive) and Tender
Musculoskeletal: No Clubbing, No Cyanosis and No Edema
Skin: Warm and Dry
Neuro: Awake, Alert and Oriented
--- NOTE | 2023-08-10 12:02 | W.PN.GI.CBS2 ---
Today's Communication / Plan
-
constipation managment
Assessment / Plan
-
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 she had robotic
closure of ileostomy mucous fistula in May. She now presents with onset of constipation with straining. She then had abdominal pain with back pain after miralax then rectal bleeding, passing large clots with about 7 episodes. Bleeding now
improved. CT A/p IV and oral with no acute findings, renal cysts, diverticulosis, bladder wall thickening.
-rectal bleeding
-constipation
-LLQ abdominal pain and back pain
-s/p exp lap 01/2023 with extended right colectomy and end ileostomy with mucous fistula and closure in May
-hx diverticulosis
-anemia
-s/p left should arthroplasty 01/30 with post-op narcotics
other medical problems:
-colon polyps
- HTN
-hypercholesterolemia
-hx diverticular bleed
-temporal arteritis
-spinal stenosis
-gout
-CKD
PLAN:
- pt with bleeding intermittently with stable hgb, likely distal issue. Known to Dr Hayward who will evaluate with flex sig (d/w him via TT)
- She has underlying constipation and wants natural remedies. Prune juice, colace (doesn't like miralax)
- will f/u as outpatient to determine if she needs more laxatives. Our office will call to schedule
will sign off call with questions
Subjective
Subjective
Date of Service: August 10, 2023
Pt without bleeding this am.
Objective
Data Reviewed
Laboratory Data:
Laboratory Results
08/10/23 04:07
08/10/23 04:07
Laboratory Results
Magnesium 2.2 mg/dl (1.6-2.3) 08/07/23 03:59
Total Bilirubin 0.3 mg/dl (0.2-1.3) 08/06/23 18:44
AST 22 U/L (14-36) 08/06/23 18:44
ALT 15 U/L (0-35) 08/06/23 18:44
Alkaline Phosphatase 84 U/L (38-126) 08/06/23 18:44
Vital Signs and I&O:
Vital Signs
Temp Pulse Resp BP Pulse Ox
98.1 F 72 16 128/61 95
08/10/23 07:15 08/10/23 07:15 08/10/23 07:15 08/10/23 08:34 08/10/23 10:37
I&O
08/09/23 08/10/23 08/11/23
06:59 06:59 06:59
Intake Total 1959
Balance 1959
Physical Exam
Physical Exam
GI: Soft and Non Tender
[2023-08-10] MEDS: TYLENOL 325 MG PO ×2 (14:50→21:51)
[2023-08-10 15:14] VITALS: BP 127/69
--- NOTE | 2023-08-10 15:27 | CM ---
Reviewed the chart notes and spoke with the patient and her spouse at the bedside. Patient reports ambulating around room without any difficulties. Only barrier to discharge are her bloody stools. CM continues to be available to patient/family
and is monitoring medical plan for needs at discharge.
Plan: Discharge to home when medically stable with no needs being identified at this time.
[2023-08-10] MEDS: PRAVACHOL 20 MG PO (17:13)
[2023-08-10] MEDS: COLACE 100 MG PO (21:51)
[2023-08-10] MEDS: FIBERCON 625 MG PO (21:51)
[2023-08-10] MEDS: ANUSOL HC 25 MG RECTAL (21:52)
[2023-08-10 23:38] VITALS: BP 135/69
[2023-08-11] VITALS (7 sets, daily range): BP systolic 111–138; BP diastolic 59–70
[2023-08-11 06:25] LABS: Hematocrit 24.9 % (37.0-47.0); Hemoglobin 8.1 g/dL (12.0-16.0); Mean Corp Hgb Conc. 32.5 g/dL (33.0-37.0); Mean Corpuscular Hgb 29.6 pg (27.0-31.0); Mean Corpuscular Volume 90.9 fL (81.0-99.0); Mean Platelet Volume 9.3 fL (7.4-10.4); Platelet Count 298 10^3/uL (130-400); Red Blood Cell Count 2.74 10^6/uL (4.20-5.40); Red Cell Dist. Width 13.2 % (11.5-14.5)
--- NOTE | 2023-08-11 07:23 | W.PN.UPDATE ---
Update Note
Progress Note Update
I have been asked to perform a flexible sigmoidoscopy to evaluate rectal bleeding in a patient well-known to me. She remains stable and her Hgb is also stable around 8g/dL. She is having intermittent bright red blood per rectum with wiping. The
plan is for a flexible sigmoidoscopy today with a possible banding of a hemorrhoid. Risks include, but are not limited to, bleeding, perforation, missed lesions, and for the banding, pain, bleeding and infection. Enemas will be ordered once I know
the time of the procedure. All questions answered and she wishes to proceed.
[2023-08-11] MEDS: CARDIZEM CD 240 MG PO (08:50)
[2023-08-11] MEDS: NEURONTIN 600 MG PO ×2 (08:50→22:09)
[2023-08-11] MEDS: VISBIOME 1 CAP PO (08:51)
--- NOTE | 2023-08-11 09:02 | W.PN.HOSP.TC ---
Today's Communication/Plan
-
For Flex Sig today, further decision based on results
Assessment / Plan
Assessment / Plan
IMPRESSION:
Patient has 82 years old with history of emergent laparotomy for bowel obstruction with extended right colectomy ileostomy, status post robotic ileostomy closure on 05/06, who came to the ER with rectal bleeding. Hx of diverticulosis
CT abd/pelvis:Abdomen and pelvis: The liver, spleen, gallbladder and pancreas are unremarkable aside from a too small to characterize hypodense hepatic lesion likely a small cyst or hemangioma.. The adrenal glands and kidneys are unremarkable
aside from simple bilateral renal cysts. The largest is off the right kidney. It measures 4.0 cm. There are bilateral too small to characterize hypodense renal lesions likely benign cysts.. The abdominal aorta is normal caliber. There is moderate
atherosclerotic vascular disease. No significant lymphadenopathy is noted. Bowel loops are normal caliber.
There is severe diverticulosis. Oral contrast has reached the rectum.
No free fluid is noted. The urinary bladder is mildly distended. There is mild diffuse bladder wall thickening..
There is a pessary present in the pelvis.
PLAN:
#Rectal bleeding
#Acute Blood Loss Anemia
Multiple episodes, still with bowel movement 3/5 morning with some blood
rectal exam unremarkable as per CRS, most likely diverticular bleed
GI, CRS consulted
stools are small and firm, no evidence of C. Diff, as per Dr. Hayward, okay to va order for C.Diff, even though Pt had +C.Diff on 06/10/23, this would be an atypical presentation for recurrence and Dr. Hayward is okay with va'ing order for C.Diff
Continue monitor hemoglobin
Hgb 10.5-->9.5-->8.6-->8.3-->8.1-->7.6-->8.4-->8.1
Regular diet on hold for flex sig as per CRS
#History of hyperlipidemia
Continue statin
#Hyponatremia, POA
-resolved
#Diffuse bladder thickening
-monitor UO
-no urinary/UTI symptoms
CODE STATUS: Full code
DVT prophylaxis: SCD due to bleed
Diet: Regular diet
Anticipated Discharge: 24 - 48 hours
Subjective/Interval History
-
Date of Service: August 11, 2023
Small BM this morning, states had evidence of fresh blood and had back pains assoc with BM
Objective Data
-
Labs:
Laboratory Results
08/11/23
05:28
WBC 7.0
Hgb 8.1 L
Hct 24.9 L
Plt Count 298 D
Vital Signs:
Vital Signs
Temp Pulse Resp BP Pulse Ox
97.9 F 75 16 119/70 98
08/11/23 07:05 08/11/23 08:50 08/11/23 07:05 08/11/23 08:50 08/11/23 07:05
I&O
08/10/23 08/11/23 08/12/23
06:59 06:59 06:59
Intake Total 1919 / 1919 1620 / 1620
Output Total 300 / 300
Balance 1919 1320 / 1320
Review of Systems
-
History Source: Patient, Physician (call placed and discussed with Dr. Hayward, plan for flex sig today) and Coordinated Provider
Constitutional: Denies Fever (afebrile)
Respiratory: Reports No Symptoms; Denies Trouble Breathing
Cardiac: Reports No Symptoms; Denies Chest Pain
Abdomen/GI: Reports Abdominal Pain (significant lower abd cramping) and Bloody Stools (essentially none past 24 hrs, as per pt, did have small amount of bloody streaking on recent BM)
Genitourinary: Reports No Symptoms
Musculoskeletal: Reports No Symptoms
Physical Exam
-
General: Well Developed, Well Nourished and No Apparent Distress; Negative Appears in Distress
HEENT: Normocephalic, Atraumatic and Moist Mucous Membranes
Respiratory: Clear to Auscultation; Negative Wheezes, Rales or Rhonchi
Cardiac: Regular Rhythm and S1/S2
GI: Soft, Normal Bowel Sounds (mildly hyperactive) and Tender (minimally)
Musculoskeletal: No Clubbing, No Cyanosis and No Edema
Skin: Warm and Dry
Neuro: Awake, Alert and Oriented
--- NOTE | 2023-08-11 14:19 | W.PN.UPDATE ---
Update Note
Progress Note Update
Flexible sigmoidoscopy performed revealing sigmoid diverticula with no bleeding. Nonbleeding internal hemorrhoids (right posterior banded).
Disposition as per the primary team.
--- NOTE | 2023-08-11 16:02 | CM ---
Reviewed the chart notes and spoke with the patient at the bedside. IMM signed and placed on the chart. The patient anticipates being discharged to home with no additional needs. CM continues to be available to patient/family and is monitoring
medical plan for needs at discharge.
Plan: Discharge to home when medically stable.
[2023-08-11] MEDS: PRAVACHOL 20 MG PO (18:13)
[2023-08-11] MEDS: FIBERCON 625 MG PO (22:05)
[2023-08-11] MEDS: COLACE 100 MG PO (22:05)
[2023-08-11] MEDS: TYLENOL 325 MG PO (22:05)
[2023-08-11] MEDS: ANUSOL HC 25 MG RECTAL (22:06)
[2023-08-12 05:06] LABS: Hematocrit 21.7 % (37.0-47.0); Hemoglobin 7.3 g/dL (12.0-16.0); Mean Corp Hgb Conc. 33.6 g/dL (33.0-37.0); Mean Corpuscular Hgb 29.6 pg (27.0-31.0); Mean Corpuscular Volume 87.9 fL (81.0-99.0); Platelet Count 275 10^3/uL (130-400); Red Blood Cell Count 2.47 10^6/uL (4.20-5.40); Red Cell Dist. Width 13.2 % (11.5-14.5)
[2023-08-12 05:43] LABS: Blood Urea Nitrogen 22 mg/dl (7-17); Calcium 8.6 mg/dl (8.4-10.2); Carbon Dioxide 23 mmol/L (22-30); Chloride 105 mmol/L (98-107); Estimated Creatinine Clearance 33 ml/min; Glucose 95 mg/dl (70-99); Iron 35 ug/dl (37-170); Potassium 3.8 mmol/L (3.5-5.1); Sodium 136 mmol/L (135-145); eGFR 49.86
[2023-08-12 05:52] LABS: Percent Saturation 13 % (20-50); Total Iron Binding Capacity 254 ug/dl (265-497)
[2023-08-12 06:12] LABS: Ferritin 59.7 ng/ml (11.1-264.0)
[2023-08-12 06:44] LABS: Folate 10.4 ng/ml (2.76-20); Vitamin B12 > 1000 pg/ml (239-931)
--- NOTE | 2023-08-12 06:46 | W.PN.CRS1 ---
Today's Communication / Plan
-
Continue to monitor.
Consider tranexamic acid if the bleeding continues
GI eval
Assessment/Plan
-
Rectal bleeding - s/p banding
too early for post-procedure bleeding. ? other hemorrhoid? Nothing to do other than observation at this time.
Lower abdominal pain
No evidence of acute diverticulitis. No plans for any surgery. She is not interested in another ostomy.
Subjective Data
Procedure
Flexible sigmoidoscopy and banding of internal hemorrhoid 08/11/23
Subjective Data
Date of Service: August 12, 2023
Lower abdominal cramps last night and bright red per rectum.
Objective Data
-
Vital Signs
Temp Pulse Resp BP Pulse Ox
97.9 F 60 18 124/59 95
08/11/23 23:00 08/11/23 23:00 08/11/23 23:00 08/11/23 23:00 08/12/23 03:27
Intake & Output
08/10/23 08/11/23 08/12/23
06:59 06:59 06:59
Intake Total 1919 1620 / 1620 1440 / 1440
Output Total 300 / 300
Balance 1919 1320 / 1320 1440 / 1440
Intake:
Oral fluids 1919 1620 / 1620 1440 / 1440
Output:
Urine, Voided 300 / 300
Other:
Number of approximated MODERATE 3 2 2
amounts of urine
Number of unmeasured liquid
stools
Rectum 3
Lab Results
08/12/23 04:07
08/12/23 04:07
Physical Exam
-
General: No Acute Distress
Abdomen: Soft, Non Distended and Tender (lower abdomen, no peritoneal signs)
[2023-08-12 08:01] VITALS: BP 138/76
--- NOTE | 2023-08-12 08:18 | W.PN.HOSP.TC ---
Today's Communication/Plan
-
transfuse 1 unit PRBC now
Blood consent has been obtained
IV Fe
Assessment / Plan
Assessment / Plan
IMPRESSION:
Patient has 82 years old with history of emergent laparotomy for bowel obstruction with extended right colectomy ileostomy, status post robotic ileostomy closure on 05/06, who came to the ER with rectal bleeding. Hx of diverticulosis
CT abd/pelvis:Abdomen and pelvis: The liver, spleen, gallbladder and pancreas are unremarkable aside from a too small to characterize hypodense hepatic lesion likely a small cyst or hemangioma.. The adrenal glands and kidneys are unremarkable
aside from simple bilateral renal cysts. The largest is off the right kidney. It measures 4.0 cm. There are bilateral too small to characterize hypodense renal lesions likely benign cysts.. The abdominal aorta is normal caliber. There is moderate
atherosclerotic vascular disease. No significant lymphadenopathy is noted. Bowel loops are normal caliber.
There is severe diverticulosis. Oral contrast has reached the rectum.
No free fluid is noted. The urinary bladder is mildly distended. There is mild diffuse bladder wall thickening..
There is a pessary present in the pelvis.
PLAN:
#Rectal bleeding recurrent
Pt underwent flex sig with sigmoid diverticulosis and nonbleeding internal hemorrhoids
#Acute Blood Loss Anemia
Multiple episodes, still with bowel movement 3/6 morning with significant amount of blood
rectal exam unremarkable as per CRS, most likely diverticular bleed
GI, CRS consulted
stools are small and firm, no evidence of C. Diff, as per Dr. Hayward, okay to sd order for C.Diff, even though Pt had +C.Diff on 06/10/23, this would be an atypical presentation for recurrence and Dr. Hayward is okay with sd'ing order for C.Diff
Continue monitor hemoglobin
Hgb 10.5-->9.5-->8.6-->8.3-->8.1-->7.6-->8.4-->8.1-->7.3
will transfuse and order IV Fe
#History of hyperlipidemia
Continue statin
#Hyponatremia, POA
-resolved
#Diffuse bladder thickening
-monitor UO
-no urinary/UTI symptoms
CODE STATUS: Full code
DVT prophylaxis: SCD due to bleed
Diet: Regular diet or as per GI
Anticipated Discharge: 24 - 48 hours
Subjective/Interval History
-
Date of Service: August 12, 2023
Had 2 episodes of large amount of blood passage past 24 hrs
Objective Data
-
Labs:
Laboratory Results
08/12/23
04:07
WBC 8.0
Hgb 7.3 L
Hct 21.7 L
Plt Count 275
Sodium 136
Potassium 3.8
Chloride 105
Carbon Dioxide 23
BUN 22 H
Creatinine 1.1 H
Glucose 95
Calcium 8.6
Vital Signs:
Vital Signs
Temp Pulse Resp BP Pulse Ox
98.0 F 74 16 138/76 100
08/12/23 08:01 08/12/23 08:01 08/12/23 08:01 08/12/23 08:01 08/12/23 08:01
I&O
08/11/23 08/12/23 08/13/23
06:59 06:59 06:59
Intake Total 1620 / 1620 1440 / 1440
Output Total 300 / 300
Balance 1320 / 1320 1440 / 1440
Review of Systems
-
History Source: Patient, Physician (reviewed with GI) and Coordinated Provider
Constitutional: Denies Fever (afebrile)
Respiratory: Reports No Symptoms; Denies Trouble Breathing
Cardiac: Reports No Symptoms; Denies Chest Pain
Abdomen/GI: Reports Abdominal Pain (significant lower abd cramping) and Bloody Stools (essentially none past 24 hrs, as per pt, did have small amount of bloody streaking on recent BM)
Genitourinary: Reports No Symptoms
Musculoskeletal: Reports No Symptoms
Physical Exam
-
General: Well Developed, Well Nourished and No Apparent Distress; Negative Appears in Distress
HEENT: Normocephalic, Atraumatic and Moist Mucous Membranes
Respiratory: Clear to Auscultation; Negative Wheezes, Rales or Rhonchi
Cardiac: Regular Rhythm and S1/S2
GI: Soft, Normal Bowel Sounds (mildly hyperactive) and Tender (minimally)
Musculoskeletal: No Clubbing, No Cyanosis and No Edema
Skin: Warm and Dry
Neuro: Awake, Alert and Oriented
--- NOTE | 2023-08-12 08:31 | W.PN.GI.CBS2 ---
Addendum entered and electronically signed by Cindi Luong MD 08/12/23 12:07:
I saw and examined the patient.
The [employer]'s note was reviewed and I agree with the note.
Comment: She had rectal bleeding last night 2 episodes none since then. Possible etiology could be diverticulosis versus postprocedure she had hemorrhoid banding yesterday band may have dislodged, too early to have bleeding related to ulcers from
banding. Will hold on further intervention since bleeding seems to have resolved if she does have further bleeding consider bleeding scan versus CTA. Currently getting 1 unit of packed red blood cells for drop in hemoglobin will continue to
monitor hemoglobin and for further signs of bleeding. She is more agreeable to starting bowel regimen now and she has been started on MiraLAX and Senokot, I told her to continue this as outpatient also.
Addendum entered and electronically signed by NOEL Zavala 08/12/23 08:42:
hbg 7.3 with some drop for transfusion today
Original Note:
Today's Communication / Plan
-
s/p flex sig with banding then increased bleeding at 11 PM and 11:30 pm larger volume red blood then resolved last 9 hours-- etiology diverticular, post procedure vs other
cont to monitor for bleeding
discussed with patient and daughter to increase bowel regiment to keep bowel moving as constipation may be leading to multiple issue with hemorrhoids, pain etc
will stop colace and add Miralax in AM and senna in PM with need for continued adjustment
monitor over next 24 hours
if increased bleeding consider CTA if renal function allows vs bleeding scan
discussed probiotics can continue if pt wishes to but likely minimal role in helping constipation issues
cont regular diet
pt is scheduled 08/[address] Holley
will follow
Assessment / Plan
-
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 she had robotic
closure of ileostomy mucous fistula in May. She now presents with onset of constipation with straining. She then had abdominal pain with back pain after miralax then rectal bleeding, passing large clots with about 7 episodes. Bleeding now
improved. CT A/p IV and oral with no acute findings, renal cysts, diverticulosis, bladder wall thickening. Pt with some bleeding over weekend with flex sig/ with diverticulosis, hemorrhoids with banding and increased bleeding 3/ PM.
-rectal bleeding
-constipation
-LLQ abdominal pain and back pain
-s/p exp lap 01/2023 with extended right colectomy and end ileostomy with mucous fistula and closure in May
-hx diverticulosis with prior diverticular bleed
-anemia
-s/p left should arthroplasty 01/30 with post-op narcotics
other medical problems:
-colon polyps
- HTN
-hypercholesterolemia
-hx diverticular bleed
-temporal arteritis
-spinal stenosis
-gout
-CKD
PLAN:
s/p flex sig with banding then increased bleeding at 11 PM and 11:30 pm large volume red blood then resolved last 9 hours-- etiology diverticular, post procedure vs other
cont to monitor for bleeding
discussed with patient and daughter to increase bowel regiment to keep bowel moving as constipation may be leading to multiple issue with hemorrhoids, pain etc
will stop colace and add Miralax in AM and senna in PM with need for continued adjustment
monitor over next 24 hours
if increased bleeding consider CTA if renal function allows vs bleeding scan
discussed probiotics can continue if pt wishes to but likely minimal role in helping constipation issues
cont regular diet
pt is scheduled 08/[address] Holley
will follow
Subjective
Subjective
Date of Service: August 12, 2023
increased bleeding overnight, on regular diet
Objective
Data Reviewed
Laboratory Data:
Laboratory Results
08/12/23 04:07
08/12/23 04:07
Laboratory Results
Magnesium 2.2 mg/dl (1.6-2.3) 08/07/23 03:59
Total Bilirubin 0.3 mg/dl (0.2-1.3) 08/06/23 18:44
AST 22 U/L (14-36) 08/06/23 18:44
ALT 15 U/L (0-35) 08/06/23 18:44
Alkaline Phosphatase 84 U/L (38-126) 08/06/23 18:44
Vital Signs and I&O:
Vital Signs
Temp Pulse Resp BP Pulse Ox
98.0 F 74 16 138/76 100
08/12/23 08:01 08/12/23 08:01 08/12/23 08:01 08/12/23 08:01 08/12/23 08:01
I&O
08/11/23 08/12/23 08/13/23
06:59 06:59 06:59
Intake Total 1620 / 1620 1440 / 1440
Output Total 300 / 300
Balance 1320 / 1320 1440 / 1440
Physical Exam
Physical Exam
HEENT: Anicteric and Moist mucous membranes
Cardiology: Normal Sinus Rhythm
Pulmonary: Clear
GI: Soft, Non Distended and Tender (minimal tenderness )
Extremities: No Edema
Neuro: Non Focal
[2023-08-12] MEDS: NEURONTIN 600 MG PO ×2 (08:35→22:04)
[2023-08-12] MEDS: CARDIZEM CD 240 MG PO (08:35)
[2023-08-12] MEDS: VISBIOME 1 CAP PO (08:36)
[2023-08-12] MEDS: MIRALAX 17 GRAMS PO (08:41)
[2023-08-12 09:51] VITALS: BP 126/70
[2023-08-12 10:15] VITALS: BP 120/65
[2023-08-12 12:59] VITALS: BP 116/62
[2023-08-12] MEDS: FERRLECIT 110 MG IV (14:12)
--- NOTE | 2023-08-12 14:49 | CM ---
Reviewed the chart notes. Patient received 1 unit PRBC today. CM continues to be available to patient/family and is monitoring medical plan for needs at discharge.
Plan: Discharge to home when medically stable.
[2023-08-12 16:41] VITALS: BP 127/70
[2023-08-12] MEDS: PRAVACHOL 20 MG PO (18:26)
[2023-08-12] MEDS: TYLENOL 325 MG PO (18:28)
[2023-08-12] MEDS: FIBERCON 625 MG PO (22:04)
[2023-08-12] MEDS: ANUSOL HC 25 MG RECTAL (22:05)
[2023-08-12] MEDS: SENOKOT 17.1999999999999993 MG PO (22:08)
[2023-08-12 23:39] VITALS: BP 145/69
[2023-08-13 06:13] LABS: Hematocrit 24.6 % (37.0-47.0); Hemoglobin 8.2 g/dL (12.0-16.0); Mean Corp Hgb Conc. 33.3 g/dL (33.0-37.0); Mean Corpuscular Hgb 29.2 pg (27.0-31.0); Mean Corpuscular Volume 87.5 fL (81.0-99.0); Mean Platelet Volume 9.3 fL (7.4-10.4); Platelet Count 304 10^3/uL (130-400); Red Blood Cell Count 2.81 10^6/uL (4.20-5.40); Red Cell Dist. Width 13.9 % (11.5-14.5); White Blood Cell Count 9.3 10^3/uL (4.8-10.8)
[2023-08-13 07:44] VITALS: BP 131/71
[2023-08-13] MEDS: CARDIZEM CD 240 MG PO (07:58)
[2023-08-13] MEDS: MIRALAX 17 GRAMS PO (08:00)
[2023-08-13] MEDS: NEURONTIN 600 MG PO ×2 (08:02→20:06)
[2023-08-13] MEDS: VISBIOME 1 CAP PO (08:04)
--- NOTE | 2023-08-13 08:25 | W.PN.HOSP.TC ---
Today's Communication/Plan
-
CT scan of abd
continue laxative
Assessment / Plan
Assessment / Plan
IMPRESSION:
Patient has 82 years old with history of emergent laparotomy for bowel obstruction with extended right colectomy ileostomy, status post robotic ileostomy closure on 05/06, who came to the ER with rectal bleeding. Hx of diverticulosis
CT abd/pelvis:Abdomen and pelvis: The liver, spleen, gallbladder and pancreas are unremarkable aside from a too small to characterize hypodense hepatic lesion likely a small cyst or hemangioma.. The adrenal glands and kidneys are unremarkable
aside from simple bilateral renal cysts. The largest is off the right kidney. It measures 4.0 cm. There are bilateral too small to characterize hypodense renal lesions likely benign cysts.. The abdominal aorta is normal caliber. There is moderate
atherosclerotic vascular disease. No significant lymphadenopathy is noted. Bowel loops are normal caliber.
There is severe diverticulosis. Oral contrast has reached the rectum.
No free fluid is noted. The urinary bladder is mildly distended. There is mild diffuse bladder wall thickening..
There is a pessary present in the pelvis.
Pt is concerned that she is blocked up and is requesting a repeat CT scan. Fortunately there was no further bloody stools past [address] Hayward, will order. Continue Miralax, Senokot and Fibercon
PLAN:
#Rectal bleeding recurrent
Pt underwent flex sig with severe sigmoid diverticulosis and nonbleeding internal hemorrhoids
#Acute Blood Loss Anemia
Multiple episodes, bowel movement 3/6 morning with significant amount of blood, though none past 24+ hrs
rectal exam unremarkable as per CRS, most likely diverticular bleed
GI, CRS consulted
Continue monitor hemoglobin
Hgb 10.5-->9.5-->8.6-->8.3-->8.1-->7.6-->8.4-->8.1-->7.3-transfused-->8.2
continue IV Fe
#History of hyperlipidemia
Continue statin
#Hyponatremia, POA
-resolved
#Diffuse bladder thickening
-monitor UO
-no urinary/UTI symptoms
CODE STATUS: Full code
DVT prophylaxis: SCD due to bleed
Diet: Regular diet
call placed and updated dgt Saskia 08/12 >15 minutes on extensive review
total time today ~1 hr
Anticipated Discharge: 24 - 48 hours
Subjective/Interval History
-
Date of Service: August 13, 2023
Pt feels like she is blocked up and is only able to pass small hard stools
Objective Data
-
Labs:
Laboratory Results
08/13/23
04:37
WBC 9.3
Hgb 8.2 L
Hct 24.6 L
Plt Count 304
Vital Signs:
Vital Signs
Temp Pulse Resp BP Pulse Ox
97.7 F 80 16 121/71 96
08/13/23 07:44 08/13/23 07:58 08/13/23 07:44 08/13/23 07:58 08/13/23 07:44
I&O
08/12/23 08/13/23 08/14/23
06:59 06:59 06:59
Intake Total 1440 / 1440 970 / 970
Balance 1440 / 1440 970 / 970
Review of Systems
-
History Source: Patient, Physician (reviewed with Dr. Hayward) and Coordinated Provider
Constitutional: Denies Fever (afebrile)
Respiratory: Reports No Symptoms; Denies Trouble Breathing
Cardiac: Reports No Symptoms; Denies Chest Pain
Abdomen/GI: Reports Abdominal Pain (significant lower abd cramping, also pain in lower back) and Bloody Stools ( none past 24 hrs, )
Genitourinary: Reports No Symptoms
Musculoskeletal: Reports No Symptoms
Physical Exam
-
General: Well Developed, Well Nourished and No Apparent Distress; Negative Appears in Distress
HEENT: Normocephalic, Atraumatic and Moist Mucous Membranes
Respiratory: Clear to Auscultation; Negative Wheezes, Rales or Rhonchi
Cardiac: Regular Rhythm and S1/S2
GI: Soft, Normal Bowel Sounds (mildly hypoactive) and Tender (somewhat more tender)
Musculoskeletal: No Clubbing, No Cyanosis and No Edema
Skin: Warm and Dry
Neuro: Awake, Alert and Oriented
--- NOTE | 2023-08-13 08:53 | W.PN.CRS1 ---
Today's Communication / Plan
-
For CT scan of the abdomen/pelvis
Further management to follow
Assessment/Plan
-
Lower abdominal discomfort of unclear etiology. She does have chronic diverticular disease but no evidence of inflammation.
Rectal bleeding, most likely from her hemorrhoids. Banding performed 08/10. 1 unit of blood yesterday. No further bleeding.
Subjective Data
Procedure
Flexible sigmoidoscopy and banding of internal hemorrhoid 08/11/23
Subjective Data
Date of Service: August 13, 2023
No bleeding. Still with lower abdominal pressure and feels like there is something blocking. No nausea/vomiting.
Objective Data
-
Vital Signs
Temp Pulse Resp BP Pulse Ox
97.7 F 80 16 121/71 96
08/13/23 07:44 08/13/23 07:58 08/13/23 07:44 08/13/23 07:58 08/13/23 07:44
Intake & Output
08/12/23 08/13/23 08/14/23
06:59 06:59 06:59
Intake Total 1440 / 1440 970 / 970
Balance 1440 / 1440 970 / 970
Intake:
Oral fluids 1440 / 1440 720 / 720
Blood Product Amount Infused ( 250 / 250
mL)
Packed Rbc Leukoreduced Unit 250 / 250
[id number]
Other:
Number of approximated MODERATE 2 2
amounts of urine
Number of unmeasured liquid
stools
Rectum 3
Lab Results
08/13/23 04:37
08/12/23 04:07
Physical Exam
-
General: No Acute Distress
Abdomen: Soft, Non Distended and Non Tender
[2023-08-13 10:45] VITALS: BP 122/60
--- NOTE | 2023-08-13 12:15 | W.PN.GI.CBS2 ---
Today's Communication / Plan
-
Continue bowel regimen
Assessment / Plan
-
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 she had robotic
closure of ileostomy mucous fistula in May. She now presents with onset of constipation with straining. She then had abdominal pain with back pain after miralax then rectal bleeding, passing large clots with about 7 episodes. Bleeding now
improved. CT A/p IV and oral with no acute findings, renal cysts, diverticulosis, bladder wall thickening. Pt with some bleeding over weekend with flex sig/ with diverticulosis, hemorrhoids with banding and increased bleeding 3/5 PM.
-rectal bleeding
-constipation
-LLQ abdominal pain and back pain
-s/p exp lap 01/2023 with extended right colectomy and end ileostomy with mucous fistula and closure in May
-hx diverticulosis with prior diverticular bleed
-anemia
-s/p left should arthroplasty 01/30 with post-op narcotics
other medical problems:
-colon polyps
- HTN
-hypercholesterolemia
-hx diverticular bleed
-temporal arteritis
-spinal stenosis
-gout
-CKD
PLAN:
s/p flex sig with banding then increased bleeding at 11 PM and 11:30 pm large volume red blood then resolved last 9 hours-- etiology diverticular, post procedure vs other
bleeding resolved and HB stable post 1 Unit PRBC
Continue Miralax in AM and senna in PM has chronic constipation
cont regular diet
pt is scheduled 08/[address] Holley
will s/o and will be available as needed
Subjective
Subjective
Date of Service: August 13, 2023
Symptoms have improved she says abdominal pain has resolved and she has not had any further bleeding, hemoglobin stable posttransfusion of 1 unit of packed red blood cells yesterday
Objective
Data Reviewed
Laboratory Data:
Laboratory Results
08/13/23 04:37
08/12/23 04:07
Laboratory Results
Magnesium 2.2 mg/dl (1.6-2.3) 08/07/23 03:59
Total Bilirubin 0.3 mg/dl (0.2-1.3) 08/06/23 18:44
AST 22 U/L (14-36) 08/06/23 18:44
ALT 15 U/L (0-35) 08/06/23 18:44
Alkaline Phosphatase 84 U/L (38-126) 08/06/23 18:44
Vital Signs and I&O:
Vital Signs
Temp Pulse Resp BP Pulse Ox
98.4 F 74 16 122/60 98
08/13/23 10:45 08/13/23 10:45 08/13/23 10:45 08/13/23 10:45 08/13/23 10:45
I&O
08/12/23 08/13/23 08/14/23
06:59 06:59 06:59
Intake Total 1440 / 1440 970 / 970
Balance 1440 / 1440 970 / 970
08/13/23 CT Abd/pelvis Wo Iv Cont
IMPRESSION:
Evaluation for lower GI bleed cannot be assessed without intravenous contrast.
Descending colon and sigmoid diverticulosis.
Pelvic pessary in position, unchanged.
Bilateral simple renal cysts. Tiny nonobstructing right renal calculus.
Physical Exam
Physical Exam
Cardiology: Normal Sinus Rhythm
Pulmonary: Clear
GI: Soft, Non Distended, Non Tender and Normal Bowel Sounds
[2023-08-13] MEDS: FERRLECIT 110 MG IV (14:57)
[2023-08-13 15:10] VITALS: BP 114/65
[2023-08-13] MEDS: PRAVACHOL 20 MG PO (18:15)
[2023-08-13] MEDS: SENOKOT 17.1999999999999993 MG PO (22:03)
[2023-08-13] MEDS: FIBERCON 625 MG PO (22:03)
[2023-08-13] MEDS: ANUSOL HC 25 MG RECTAL (22:03)
[2023-08-13 23:10] VITALS: BP 137/68
[2023-08-14 06:17] LABS: % Basophils 0.2 % (0-2); % Eosinophils 4.5 % (0-6); % Immature Granulocytes 0.5 % (0-0.5); % Lymphocytes 22.9 % (20.5-51.1); % Monocytes 13.9 % (1.7-9.3); Absolute Eosinophils 0.3 10^3/uL (0-0.7); Absolute Lymphocytes 1.5 10^3/uL (1.2-3.4); Absolute Monocytes 0.9 10^3/uL (0.1-0.6); Absolute Neutrophils 3.7 10^3/uL (1.4-6.5); Hematocrit 22.8 % (37.0-47.0); Hemoglobin 7.5 g/dL (12.0-16.0); Mean Corp Hgb Conc. 32.9 g/dL (33.0-37.0); Mean Corpuscular Hgb 29.1 pg (27.0-31.0); Mean Corpuscular Volume 88.4 fL (81.0-99.0); Mean Platelet Volume 9.2 fL (7.4-10.4); Nucleated Red Blood Cells % 0 %; Platelet Count 310 10^3/uL (130-400); Red Blood Cell Count 2.58 10^6/uL (4.20-5.40); Red Cell Dist. Width 13.8 % (11.5-14.5); White Blood Cell Count 6.4 10^3/uL (4.8-10.8)
[2023-08-14 07:00] VITALS: BP 133/75
[2023-08-14] MEDS: NEURONTIN 600 MG PO ×2 (08:20→21:21)
[2023-08-14] MEDS: CARDIZEM CD 240 MG PO (08:21)
[2023-08-14] MEDS: VISBIOME 1 CAP PO (08:21)
[2023-08-14] MEDS: MIRALAX 17 GRAMS PO (08:22)
--- NOTE | 2023-08-14 08:58 | W.PN.HOSP.TC ---
Today's Communication/Plan
-
encourage OOB
recheck CBC tomorrow, decision as to next step will depend on repeat HGB
Assessment / Plan
Assessment / Plan
IMPRESSION:
Patient has 82 years old with history of emergent laparotomy for bowel obstruction with extended right colectomy ileostomy, status post robotic ileostomy closure on 05/06, who came to the ER with rectal bleeding. Hx of diverticulosis
CT abd/pelvis:Abdomen and pelvis: The liver, spleen, gallbladder and pancreas are unremarkable aside from a too small to characterize hypodense hepatic lesion likely a small cyst or hemangioma.. The adrenal glands and kidneys are unremarkable
aside from simple bilateral renal cysts. The largest is off the right kidney. It measures 4.0 cm. There are bilateral too small to characterize hypodense renal lesions likely benign cysts.. The abdominal aorta is normal caliber. There is moderate
atherosclerotic vascular disease. No significant lymphadenopathy is noted. Bowel loops are normal caliber.
There is severe diverticulosis. Oral contrast has reached the rectum.
No free fluid is noted. The urinary bladder is mildly distended. There is mild diffuse bladder wall thickening..
There is a pessary present in the pelvis.
Pt was concerned that she is blocked up and is requested a repeat CT scan. Fortunately there was no further bloody stools past 48 hrs. Continue Miralax, Senokot and Fibercon
CT abd: Evaluation for lower GI bleed cannot be assessed without intravenous contrast.
Descending colon and sigmoid diverticulosis.
Pelvic pessary in position, unchanged.
Bilateral simple renal cysts. Tiny nonobstructing right renal calculus.
PLAN:
#Rectal bleeding recurrent
Pt underwent flex sig with severe sigmoid diverticulosis and nonbleeding internal hemorrhoids
#Acute Blood Loss Anemia
Multiple episodes, bowel movement 3/6 morning with significant amount of blood, though none past 48+ hrs
rectal exam unremarkable as per CRS, most likely diverticular bleed
GI, CRS consulted
Continue monitor hemoglobin
Hgb 10.5-->9.5-->8.6-->8.3-->8.1-->7.6-->8.4-->8.1-->7.3-transfused-->8.2-->7.5
unclear why noted drop in Hgb today, ?instrumental variation. Will recheck tomorrow and depending on results, will consider repeat transfusion vs dc on current regiment
continue IV Fe
#History of hyperlipidemia
Continue statin
#Hyponatremia, POA
-resolved
#Diffuse bladder thickening
-monitor UO
-no urinary/UTI symptoms
CODE STATUS: Full code
DVT prophylaxis: SCD due to bleed
Diet: Regular diet
call placed and updated dgt Saskia 08/13 >15 minutes on extensive review, dgt very appreciative of update
Anticipated Discharge: 24 - 48 hours
Subjective/Interval History
-
Date of Service: August 14, 2023
Starting to pass larger, softer stools since starting Miralax, has not note any gross blood past 2 days
Objective Data
-
Labs:
Laboratory Results
08/14/23
05:27
WBC 6.4
Hgb 7.5 L
Hct 22.8 L
Plt Count 310
Vital Signs:
Vital Signs
Temp Pulse Resp BP Pulse Ox
97.5 F 63 16 133/75 95
08/14/23 07:00 08/14/23 08:21 08/14/23 07:00 08/14/23 08:21 08/14/23 07:00
I&O
08/13/23 08/14/23 08/15/23
06:59 06:59 06:59
Intake Total 970 / 970 1190 / 1190
Balance 970 / 970 1190 / 1190
Review of Systems
-
History Source: Patient, Physician (reviewed with Dr. Hayward 08/12) and Coordinated Provider
Constitutional: Denies Fever (afebrile)
Respiratory: Reports No Symptoms; Denies Trouble Breathing
Cardiac: Reports No Symptoms; Denies Chest Pain
Abdomen/GI: Reports Abdominal Pain (significant lower abd cramping, also pain in lower back) and Bloody Stools ( none past 48 hrs, )
Genitourinary: Reports No Symptoms
Musculoskeletal: Reports No Symptoms
Physical Exam
-
General: Well Developed, Well Nourished and No Apparent Distress; Negative Appears in Distress
HEENT: Normocephalic, Atraumatic and Moist Mucous Membranes
Respiratory: Clear to Auscultation; Negative Wheezes, Rales or Rhonchi
Cardiac: Regular Rhythm and S1/S2
GI: Soft, Normal Bowel Sounds (mildly hypoactive) and Tender (somewhat less tender)
Musculoskeletal: No Clubbing, No Cyanosis and No Edema
Skin: Warm and Dry
Neuro: Awake, Alert and Oriented
--- NOTE | 2023-08-14 10:37 | W.PN.CRS1 ---
Today's Communication / Plan
-
Care per hospitalist.
Assessment/Plan
-
Rectal bleeding not reported for the last 24 to 48 hours. Etiology of prior bleeding unclear. Hemorrhoidal versus diverticular.
1. Hemoglobin has drifted overnight to 7.5 from 8.2. Suspect equilibration. To be rechecked tomorrow morning per hospitalist note, which is reasonable.
2. Will follow from afar. Please reconsult at if needed.
Subjective Data
Procedure
Flexible sigmoidoscopy and banding of internal hemorrhoid 08/11/23
Subjective Data
Date of Service: August 14, 2023
Patient denies any bleeding for 24 to 48 hours.
Objective Data
-
Vital Signs
Temp Pulse Resp BP Pulse Ox
97.5 F 63 16 133/75 95
08/14/23 07:00 08/14/23 08:21 08/14/23 07:00 08/14/23 08:21 08/14/23 07:00
Intake & Output
08/13/23 08/14/23 08/15/23
06:59 06:59 06:59
Intake Total 970 / 970 1190 / 1190
Balance 970 / 970 1190 / 1190
Intake:
Oral fluids 720 / 720 1190 / 1190
Blood Product Amount Infused ( 250 / 250
mL)
Packed Rbc Leukoreduced Unit 250 / 250
[id number]
Other:
Number of approximated MODERATE 2 1
amounts of urine
Lab Results
08/14/23 05:27
08/12/23 04:07
Physical Exam
-
General: No Acute Distress
Cardiovascular: Regular Rate & Rhythm
Abdomen: Soft, Non Distended and Non Tender
Data Reviewed
-
CT Scan: Image Reviewed and Report Reviewed
[2023-08-14] MEDS: TYLENOL 325 MG PO (10:51)
[2023-08-14] MEDS: FERRLECIT 110 MG IV (14:48)
[2023-08-14 15:00] VITALS: BP 116/58
--- NOTE | 2023-08-14 15:54 | CM ---
Reviewed the chart notes and spoke with the patient at the bedside. IMM signed and placed on chart. CM continues to be available to patient/family and is monitoring medical plan for needs at discharge.
Plan: Discharge to home when medically stable. No needs anticipated.
[2023-08-14] MEDS: PRAVACHOL 20 MG PO (17:49)
[2023-08-14] MEDS: SENOKOT 17.1999999999999993 MG PO (21:21)
[2023-08-14] MEDS: ANUSOL HC 25 MG RECTAL (21:21)
[2023-08-14] MEDS: FIBERCON 625 MG PO (21:21)
[2023-08-14 23:25] VITALS: BP 111/53
[2023-08-15 07:17] VITALS: BP 130/71
[2023-08-15 08:29] LABS: Hematocrit 26.9 % (37.0-47.0); Hemoglobin 8.9 g/dL (12.0-16.0); Mean Corp Hgb Conc. 33.1 g/dL (33.0-37.0); Mean Corpuscular Hgb 29.2 pg (27.0-31.0); Mean Corpuscular Volume 88.2 fL (81.0-99.0); Mean Platelet Volume 8.8 fL (7.4-10.4); Platelet Count 353 10^3/uL (130-400); Red Blood Cell Count 3.05 10^6/uL (4.20-5.40); Red Cell Dist. Width 13.8 % (11.5-14.5); White Blood Cell Count 7.8 10^3/uL (4.8-10.8)
[2023-08-15] MEDS: NEURONTIN 600 MG PO (08:50)
[2023-08-15] MEDS: VISBIOME 1 CAP PO (08:51)
[2023-08-15] MEDS: MIRALAX 17 GRAMS PO (08:51)
[2023-08-15] MEDS: CARDIZEM CD 240 MG PO (08:51)
[2023-08-15] MEDS: FERRLECIT 110 MG IV (13:34)
--- NOTE | 2023-08-15 15:00 | W.PN.HOSP.TC ---
Today's Communication/Plan
-
dc today
Assessment / Plan
Assessment / Plan
IMPRESSION:
Patient has 82 years old with history of emergent laparotomy for bowel obstruction with extended right colectomy ileostomy, status post robotic ileostomy closure on 05/06, who came to the ER with rectal bleeding. Hx of diverticulosis
CT abd/pelvis:Abdomen and pelvis: The liver, spleen, gallbladder and pancreas are unremarkable aside from a too small to characterize hypodense hepatic lesion likely a small cyst or hemangioma.. The adrenal glands and kidneys are unremarkable
aside from simple bilateral renal cysts. The largest is off the right kidney. It measures 4.0 cm. There are bilateral too small to characterize hypodense renal lesions likely benign cysts.. The abdominal aorta is normal caliber. There is moderate
atherosclerotic vascular disease. No significant lymphadenopathy is noted. Bowel loops are normal caliber.
There is severe diverticulosis. Oral contrast has reached the rectum.
No free fluid is noted. The urinary bladder is mildly distended. There is mild diffuse bladder wall thickening..
There is a pessary present in the pelvis.
Pt was concerned that she is blocked up and is requested a repeat CT scan. Fortunately there was no further bloody stools past 48 hrs. Continue Miralax, Senokot and Fibercon
CT abd: Evaluation for lower GI bleed cannot be assessed without intravenous contrast.
Descending colon and sigmoid diverticulosis.
Pelvic pessary in position, unchanged.
Bilateral simple renal cysts. Tiny nonobstructing right renal calculus.
PLAN:
#Rectal bleeding recurrent
Pt underwent flex sig with severe sigmoid diverticulosis and nonbleeding internal hemorrhoids
#Acute Blood Loss Anemia
Multiple episodes, bowel movement 3/6 morning with significant amount of blood, though none past 48+ hrs
rectal exam unremarkable as per CRS, most likely diverticular bleed
GI, CRS consulted
Continue monitor hemoglobin
Hgb 10.5-->9.5-->8.6-->8.3-->8.1-->7.6-->8.4-->8.1-->7.3-transfused-->8.2-->7.5-->8.9
continue IV Fe, last dose today
#History of hyperlipidemia
Continue statin
#Hyponatremia, POA
-resolved
#Diffuse bladder thickening
-monitor UO
-no urinary/UTI symptoms
CODE STATUS: Full code
DVT prophylaxis: SCD due to bleed
Diet: Regular diet
call placed and updated dgt Saskia 08/13 >15 minutes on extensive review, dgt very appreciative of update
dc to home
see dictated note
More than 30 minutes spent in discharge including
Final examination of the patient
Summarizing hospital stay
Instructions for continuing care to all relevant caregivers
Preparation of discharge records, prescriptions, and referral forms
Total time spent (in minutes): 45
Anticipated Discharge: Today
Subjective/Interval History
-
Date of Service: August 15, 2023
Feels well and anxiously awaiting dc
no further blood in the stool
Objective Data
-
Labs:
Laboratory Results
08/15/23
08:06
WBC 7.8
Hgb 8.9 L
Hct 26.9 L
Plt Count 353
Vital Signs:
Vital Signs
Temp Pulse Resp BP Pulse Ox
97.5 F 68 16 130/71 96
08/15/23 07:17 08/15/23 07:17 08/15/23 07:17 08/15/23 07:17 08/15/23 07:17
I&O
08/14/23 08/15/23 08/16/23
06:59 06:59 07:59
Intake Total 1190 / 1190 1270 / 1270
Balance 1190 / 1190 1270 / 1270
Review of Systems
-
History Source: Patient, Physician (reviewed with Dr. Hayward 08/12) and Coordinated Provider
Constitutional: Denies Fever (afebrile)
Respiratory: Reports No Symptoms; Denies Trouble Breathing
Cardiac: Reports No Symptoms; Denies Chest Pain
Abdomen/GI: Reports Abdominal Pain (significant lower abd cramping, also pain in lower back) and Bloody Stools ( none past 48 hrs, )
Genitourinary: Reports No Symptoms
Musculoskeletal: Reports No Symptoms
Physical Exam
-
General: Well Developed, Well Nourished and No Apparent Distress; Negative Appears in Distress
HEENT: Normocephalic, Atraumatic and Moist Mucous Membranes
Respiratory: Clear to Auscultation; Negative Wheezes, Rales or Rhonchi
Cardiac: Regular Rhythm and S1/S2
GI: Soft, Normal Bowel Sounds (mildly hypoactive) and Tender (somewhat less tender)
Musculoskeletal: No Clubbing, No Cyanosis and No Edema
Skin: Warm and Dry
Neuro: Awake, Alert and Oriented
--- NOTE | 2023-08-15 15:14 | W.DS.TRANS ---
DC Summary - [employer]
-
Discharge Instructions:
Discharge Diagnosis/Procedures Acute Blood Loss Anemia
Diet Regular
Activity No strenuous activity
Driving Restrictions Not until seen by your Dr
Bathing Restrictions None
Blood Work CBC in 5-7 days
Instructions:
Stand-Alone Forms:
Changes to Home Medications: Yes
Discharge Medications:
DC Medications w/original date entered in [employer]
calcium carbonate 600 mg-vitamin D3 5 mcg (200 unit) tablet 1 tab PO BID Supplement 01/02/23
diltiazem HCl 240 mg capsule,24 hr,extended release 240 mg PO DAILY #0 caps 01/30/23
Bifidobacterium infantis 4 mg capsule (Align) 4 mg PO DAILY Probiotic 05/25/23
cholecalciferol (vitamin D3) 50 mcg (2,000 unit) capsule (Vitamin D3) 50 mcg PO DAILY Supplement 05/25/23
potassium chloride 20 mEq tablet,extended release 20 meq PO BID Electrolyte Repletion 05/25/23
acetaminophen 325 mg tablet (Tylenol) 325 mg PO Q6HPRN PRN mild pain 06/04/23
calcium polycarbophil 625 mg tablet (FiberCon) 625 mg PO HS Supplement 06/04/23
cyanocobalamin (vitamin B-12) 1,000 mcg tablet 1,000 mcg PO DAILY Supplement 06/04/23
pravastatin 20 mg tablet 20 mg PO QPM High Cholesterol 06/04/23
docusate sodium 100 mg capsule (Colace) 100 mg PO HS Constipation 08/06/23
gabapentin 300 mg capsule 600 mg PO BID pain 08/06/23
polyethylene glycol 3350 17 gram oral powder packet (HealthyLax) 17 g PO DAILY #100 ea 08/15/23
sennosides 8.6 mg tablet (Senna Laxative) 17.2 mg PO HS PRN Constipation #30 tabs 08/15/23
Home Medication Changes
added laxatives
Pending Results: No
--- NOTE | 2023-08-15 15:31 | CM ---
CM following re: discharge planning.
Reviewed pt's chart, met with pt.
Discharge order is noted. Pt is aware, expressed her agreement with discharge and pt stated her daughter is coming ton transport her home.
No after care VN services needs identified.
D/C plan: home no needs. Daughter ton transport
== END 2023-08-15 16:33 | disposition home or self-care (01) | DRG 348 ==
LOC: 2 NORTH 23:58
PROVIDERS: Internal Medicine; Nurse Practitioner; Nurse Practitioner Gerontology; Surgery; ADMITTING PHYSICIAN General Practice; ATTENDING PHYSICIAN Internal Medicine; CONSULT PHYSICIAN Internal Medicine; EMERGENCY PHYSICIAN Student in an Organized Health Care Education/Training Program; FAMILY PHYSICIAN Internal Medicine; OTHER PHYSICIAN Surgery
PROC: 06LY8CC Occlusion of Hemorrhoidal Plexus with Extraluminal Device, Via Natural or Artificial Opening Endoscopic (ICD-10-PCS; 2023-08-11)
PROC: 30233N1 Transfusion of Nonautologous Red Blood Cells into Peripheral Vein, Percutaneous Approach (ICD-10-PCS; 2023-08-12)
DX: K57.31 Diverticulosis of large intestine without perforation or abscess with bleeding (principal); D62 Acute posthemorrhagic anemia; E87.1 Hypo-osmolality and hyponatremia; K64.8 Other hemorrhoids; E78.00 Pure hypercholesterolemia, unspecified; I12.9 Hypertensive chronic kidney disease with stage 1 through stage 4 chronic kidney disease, or unspecified chronic kidney disease; N18.9 Chronic kidney disease, unspecified; K59.00 Constipation, unspecified; M10.9 Gout, unspecified; N32.89 Other specified disorders of bladder; Z90.49 Acquired absence of other specified parts of digestive tract; Z87.891 Personal history of nicotine dependence
CPT/HCPCS: 74176; 74177; 80048; 80053; 81003; 82607; 82728; 82746; 83540; 83550; 83735; 84443; 85014; 85018; 85025; 85027; 86850; 86900; 86901; 86920; 87086; 96360; 99285; J2916; P9016; Q9967

== ENCOUNTER → 2023-08-19 10:12 | Outpatient (REF) | payer MEDICARE, BC, SELFPAY ==
[2023-08-19 12:56] LABS: % Basophils 0.3 % (0-2); % Eosinophils 1.3 % (0-6); % Immature Granulocytes 0.8 % (0-0.5); % Lymphocytes 13.3 % (20.5-51.1); % Monocytes 16.7 % (1.7-9.3); % Neutrophils 67.6 % (42.2-75.2); Absolute Eosinophils 0.1 10^3/uL (0-0.7); Absolute Immature Granulocytes 0.1 10^3/uL (0-0.05); Absolute Lymphocytes 1.4 10^3/uL (1.2-3.4); Absolute Monocytes 1.7 10^3/uL (0.1-0.6); Hemoglobin 8.8 g/dL (12.0-16.0); Mean Corp Hgb Conc. 32.6 g/dL (33.0-37.0); Mean Corpuscular Hgb 29.3 pg (27.0-31.0); Mean Platelet Volume 9.2 fL (7.4-10.4); Nucleated Red Blood Cells % 0 %; Platelet Count 419 10^3/uL (130-400); Red Cell Dist. Width 14.9 % (11.5-14.5); White Blood Cell Count 10.4 10^3/uL (4.8-10.8)
[2023-08-19 13:03] LABS: ALT (SGPT) 12 U/L (0-35); AST (SGOT) 22 U/L (14-36); Alkaline Phosphatase 71 U/L (38-126); Blood Urea Nitrogen 15 mg/dl (7-17); Calcium 9.3 mg/dl (8.4-10.2); Carbon Dioxide 24 mmol/L (22-30); Chloride 102 mmol/L (98-107); Glucose 94 mg/dl (70-99); Iron 30 ug/dl (37-170); Sodium 133 mmol/L (135-145); Total Bilirubin 0.3 mg/dl (0.2-1.3); eGFR 34.36
[2023-08-19 13:10] LABS: Potassium 4.8 mmol/L (3.5-5.1)
[2023-08-19 13:12] LABS: Percent Saturation 11 % (20-50); Total Iron Binding Capacity 255 ug/dl (265-497)
[2023-08-19 13:19] LABS: Free T4 1.26 ng/dl (0.78-2.19)
[2023-08-19 13:33] LABS: TSH 0.21 uIU/ml (0.47-4.68)
[2023-08-21 21:14] LABS: Total T3 (Sendout) 100 ng/dL (80-200)
== END ==
LOC: HWLAB 10:12
PROVIDERS: ATTENDING PHYSICIAN Internal Medicine; FAMILY PHYSICIAN Internal Medicine Endocrinology, Diabetes & Metabolism
DX: K92.2 Gastrointestinal hemorrhage, unspecified (principal); E05.20 Thyrotoxicosis with toxic multinodular goiter without thyrotoxic crisis or storm; D64.9 Anemia, unspecified; K62.5 Hemorrhage of anus and rectum; I10 Essential (primary) hypertension
CPT/HCPCS: 36415; 80053; 82728; 83540; 83550; 84439; 84443; 84480; 85025

== ENCOUNTER 2023-09-18 05:02 | Emergency (ER) | payer MEDICARE, BC, SELFPAY ==
[2023-09-18] VITALS (8 sets, daily range): BP systolic 139–154; BP diastolic 69–83
--- NOTE | 2023-09-18 08:10 | ED.GENMED ---
History of Present Illness
General
Chief Complaint: Headache
Source: patient
Exam Limitations: none
Time Seen by Provider: 09/18/23 07:58
Travel History
Have you had any contact with someone who has COVID-19?: Yes
Comment:
Do you have any symptoms of coronavirus? Fever > 100 degrees, chills, cough, shortness of breath, sore throat, loss of taste or smell, muscle aches, or headache?: Yes
Symptoms:: SOB, cough,nausea
History of Present Illness
History of Present Illness:
82-year-old female otherwise fairly healthy presents today for into COVID with significant headache. Headache is both sides gradual in onset without vision change. There is associated nausea and vomiting. She is on antivirals for her COVID
illness. Her is admitted to the hospital currently for COVID. She denies significant cough or respiratory distress. No unilateral numbness or weakness. She is not anticoagulated. No persistent fever. No other complaints at this time
Past History
Past History
ED Past Medical History: HTN, Hypercholesterolemia and Other (colitis, bleeding diverticuli)
ED Past Surgical History: Other
Social History
Tobacco: Non-smoker
Alcohol: Occasional
Drug: None
Personal:
Living: with family
Phy Exam
Physical Exam
Physical Exam:
General: Well-appearing female respiratory distress
HEENT: Normocephalic atraumatic mucosa dry neck is supple pupils equal round reactive to light
Heart: Regular rate and rhythm holosystolic ejection murmur noted
Lungs: Clear no wheeze or rales
Neurologic: Alert and oriented x 3. No facial asymmetry or slurred speech no numbness or weakness to the upper extremities. No drift on exam no meningeal signs
Extremities: No cyanosis
Course
Orders/Labs/Results
Orders:
Orders
09/18/23 05:26
CT Head W/o Iv Contrast Urgent
Comment:
Reason For Exam: headache
09/18/23 08:10
0.9% Sodium Chloride 1000 ml [Nss] 1,000 ml IV BOLUS
Acetaminophen [Tylenol] 650 mg PO NOW STA
Ondansetron Injectable [Zofran] 4 mg IV NOW STA
09/18/23 08:22
Complete Blood Count/With Diff Urgent
Comprehensive Metabolic Panel Urgent
09/18/23 09:02
Diphenhydramine [Benadryl] 25 mg IV NOW STA
Prochlorperazine [Compazine] 10 mg IV NOW STA
Abnormal Lab Results
09/18/23
08:22
RBC 3.69 L 10^6/uL
(4.20-5.40)
Hgb 10.9 L g/dL
(12.0-16.0)
Hct 32.9 L %
(37.0-47.0)
RDW 15.6 H %
(11.5-14.5)
Absolute Lymphs (auto) 0.8 L 10^3/uL
(1.2-3.4)
Absolute Monos (auto) 1.0 H 10^3/uL
(0.1-0.6)
Immature Gran % 0.6 H %
(0-0.5)
Lymphocytes % 14.8 L %
(20.5-51.1)
Monocytes % 18.2 H %
(1.7-9.3)
Sodium 128 L mmol/L
(135-145)
Chloride 97 L mmol/L
(98-107)
BUN 18 H mg/dl
(7-17)
Glucose 107 H mg/dl
(70-99)
09/18/23 08:22
09/18/23 08:22
Vital Signs
Initial and Last Documented VS:
Initial Vital Signs
Temp Pulse Resp BP Pulse Ox
98.1 F 61 17 139/83 96
09/18/23 05:33 09/18/23 05:33 09/18/23 05:33 09/18/23 05:33 09/18/23 05:33
Last Documented Vital Signs
Temp Pulse Resp BP Pulse Ox
98.1 F 63 16 148/74 96
09/18/23 05:33 09/18/23 07:22 09/18/23 07:22 09/18/23 10:13 09/18/23 10:00
MDM/Problems Addressed
Differential Diagnosis Includes:
Headache with known COVID illness. Consider viral related headache. No signs of meningitis. Order CT to evaluate for any hemorrhage. Treat with fluids Zofran and Tylenol
*Critical Care Note
Total Time (30-74mins, 75-104mins- exclusive of procedures): Not Applicable
Update Note
Update Note:
Patient feeling much better after treatment. Walking headache improved. Headache could be migrainous versus side effect from antiviral medicines she is on for COVID. Headache could also be related to the viral illness itself. Recommended
continued hydration at home and supportive care. Instructions were given to follow-up with family doctor
ED Attending Note
-
Portions of this chart may have been created with voice recognition software.� Occasional wrong word or��sound alike� substitutions may have occurred due to the inherent limitations of voice recognition software.
Discharge Plan
Departure
Patient Disposition: Home (Routine Discharge)
Date of Disposition: 09/18/23
Time of Disposition: 10:24
Patient with high blood pressure during this ER visit?: No
Discharge Problem:
Headache
Instructions: Headache, Adult (DC)
Prescriptions:
No Action
calcium carbonate-vitamin D3 600 mg-5 mcg (200 unit) Tablet
1 tab PO BID
diltiazem HCl 240 mg Capsule,Extended Release 24 Hr
240 mg PO DAILY Qty: 0 0RF
Align 4 mg Capsule
4 mg PO DAILY
potassium chloride 20 mEq Tablet Extended Release
20 meq PO BID
cholecalciferol (vitamin D3) [Vitamin D3] 50 mcg (2,000 unit) Capsule
50 mcg PO DAILY
acetaminophen [Tylenol] 325 mg Tablet
325 mg PO Q6HPRN PRN (Reason: mild pain)
cyanocobalamin (vitamin B-12) 1,000 mcg Tablet
1,000 mcg PO DAILY
calcium polycarbophil [FiberCon] 625 mg Tablet
625 mg PO HS
pravastatin 20 mg Tablet
20 mg PO QPM
gabapentin 300 mg Capsule
600 mg PO BID
docusate sodium [Colace] 100 mg Capsule
100 mg PO HS
polyethylene glycol 3350 [HealthyLax] 17 gram Powder In Packet
17 g PO DAILY Qty: 100 0RF
sennosides [Senna Laxative] 8.6 mg Tablet
17.2 mg PO HS PRN (Reason: Constipation) Qty: 30 0RF
Referrals:
Phillip Smith DO [Family Provider] -
Activity Restrictions/Additional Instructions:
Rest. Drink plenty fluids. Use Tylenol or ibuprofen for pain. Return if worse otherwise
Interventions
Interventions:
*Risk Screen - Suicide Last Done: 09/18/23 05:17
*General Assessment Last Done: 09/18/23 05:17
*Neglect/Abuse Screening Last Done: 09/18/23 05:17
ED- Fall Risk Assessment Last Done: 09/18/23 05:17
*ED COVID-19 Vaccine History Last Done: 09/18/23 05:17
SL-Mtnnvz-Xuhmzvzxtg Assessment Last Done: 09/18/23 05:37
ED- Neurological Assessment Last Done: 09/18/23 05:37
ED- Pulmonary Assessment Last Done: 09/18/23 05:37
Discharge Date and Time
Print Language: TELUGU
[2023-09-18] MEDS: NSS 1000 IV (08:27)
[2023-09-18] MEDS: ZOFRAN 4 MG IV (08:28)
[2023-09-18 08:41] LABS: % Basophils 0.2 % (0-2); % Immature Granulocytes 0.6 % (0-0.5); % Lymphocytes 14.8 % (20.5-51.1); % Monocytes 18.2 % (1.7-9.3); % Neutrophils 66.2 % (42.2-75.2); Absolute Lymphocytes 0.8 10^3/uL (1.2-3.4); Absolute Neutrophils 3.5 10^3/uL (1.4-6.5); Hematocrit 32.9 % (37.0-47.0); Hemoglobin 10.9 g/dL (12.0-16.0); Mean Corp Hgb Conc. 33.1 g/dL (33.0-37.0); Mean Corpuscular Hgb 29.5 pg (27.0-31.0); Mean Corpuscular Volume 89.2 fL (81.0-99.0); Mean Platelet Volume 9.1 fL (7.4-10.4); Nucleated Red Blood Cells % 0 %; Platelet Count 239 10^3/uL (130-400); Red Blood Cell Count 3.69 10^6/uL (4.20-5.40); Red Cell Dist. Width 15.6 % (11.5-14.5); White Blood Cell Count 5.3 10^3/uL (4.8-10.8)
[2023-09-18 08:54] LABS: Potassium 3.6 mmol/L (3.5-5.1)
[2023-09-18 08:55] LABS: ALT (SGPT) 22 U/L (0-35); AST (SGOT) 34 U/L (14-36); Albumin 4.3 g/dl (3.5-5.0); Alkaline Phosphatase 64 U/L (38-126); Blood Urea Nitrogen 18 mg/dl (7-17); Calcium 8.9 mg/dl (8.4-10.2); Carbon Dioxide 22 mmol/L (22-30); Chloride 97 mmol/L (98-107); Glucose 107 mg/dl (70-99); Sodium 128 mmol/L (135-145); Total Bilirubin 0.4 mg/dl (0.2-1.3); Total Protein 7.4 g/dl (6.3-8.2)
[2023-09-18] MEDS: COMPAZINE 10 MG IV (09:07)
[2023-09-18] MEDS: BENADRYL 25 MG IV (09:07)
== END 2023-09-18 14:00 | disposition home or self-care (01) ==
LOC: EMR 05:02
PROVIDERS: Physician Assistant; EMERGENCY PHYSICIAN Emergency Medicine; FAMILY PHYSICIAN Internal Medicine
DX: R51.9 Headache, unspecified (principal); I10 Essential (primary) hypertension; E78.00 Pure hypercholesterolemia, unspecified
CPT/HCPCS: 99284; 96374; 96375; 96361; 70450; 80053; 85025

== ENCOUNTER → 2023-09-28 12:33 | Outpatient (REF) | payer MEDICARE, BC, SELFPAY ==
[2023-09-28 16:26] LABS: Free T4 1.07 ng/dl (0.78-2.19)
[2023-09-28 16:40] LABS: TSH 2.61 uIU/ml (0.47-4.68)
== END ==
LOC: HWLAB 12:33
PROVIDERS: ATTENDING PHYSICIAN Internal Medicine Endocrinology, Diabetes & Metabolism; FAMILY PHYSICIAN Internal Medicine
DX: E89.0 Postprocedural hypothyroidism (principal)
CPT/HCPCS: 84439; 84443

== ENCOUNTER → 2023-10-20 08:19 | Outpatient (REF) | payer MEDICARE, BC, SELFPAY ==
[2023-10-20 11:13] LABS: % Basophils 0.5 % (0-2); % Eosinophils 4.7 % (0-6); % Immature Granulocytes 0.6 % (0-0.5); % Monocytes 14.7 % (1.7-9.3); % Neutrophils 56.5 % (42.2-75.2); Absolute Eosinophils 0.3 10^3/uL (0-0.7); Absolute Lymphocytes 1.5 10^3/uL (1.2-3.4); Absolute Neutrophils 3.7 10^3/uL (1.4-6.5); Hematocrit 39.4 % (37.0-47.0); Hemoglobin 12.3 g/dL (12.0-16.0); Mean Corp Hgb Conc. 31.2 g/dL (33.0-37.0); Mean Corpuscular Hgb 28.9 pg (27.0-31.0); Mean Corpuscular Volume 92.7 fL (81.0-99.0); Mean Platelet Volume 9.3 fL (7.4-10.4); Nucleated Red Blood Cells % 0 %; Platelet Count 289 10^3/uL (130-400); Red Blood Cell Count 4.25 10^6/uL (4.20-5.40); Red Cell Dist. Width 15.8 % (11.5-14.5); White Blood Cell Count 6.5 10^3/uL (4.8-10.8)
[2023-10-20 11:30] LABS: ALT (SGPT) 19 U/L (0-35); AST (SGOT) 26 U/L (14-36); Albumin 4.8 g/dl (3.5-5.0); Alkaline Phosphatase 80 U/L (38-126); Blood Urea Nitrogen 26 mg/dl (7-17); Carbon Dioxide 28 mmol/L (22-30); Chloride 105 mmol/L (98-107); Glucose 91 mg/dl (70-99); HDL Cholesterol 84 mg/dl; Iron 80 ug/dl (37-170); LDL Cholesterol, Calculated 132 mg/dl; Sodium 142 mmol/L (135-145); Total Bilirubin 0.3 mg/dl (0.2-1.3); Total Cholesterol 242 mg/dl (50-199); Total Protein 8.2 g/dl (6.3-8.2); Triglyceride 132 mg/dl (10-149); Uric Acid 9.5 mg/dl (2.5-6.2); Very Low Density Lipoprotein 26 mg/dl (0-30); eGFR 44.91
[2023-10-20 11:39] LABS: Percent Saturation 24 % (20-50); Total Iron Binding Capacity 321 ug/dl (265-497)
[2023-10-20 11:59] LABS: Ferritin 71.8 ng/ml (11.1-264.0)
[2023-10-20 12:30] LABS: Folate 10.3 ng/ml (2.76-20); Vitamin B12 992 pg/ml (239-931)
== END ==
LOC: HWLAB 08:19
PROVIDERS: ATTENDING PHYSICIAN Internal Medicine
DX: M79.2 Neuralgia and neuritis, unspecified (principal); M1A.40X0 Other secondary chronic gout, unspecified site, without tophus (tophi); E78.2 Mixed hyperlipidemia; K92.2 Gastrointestinal hemorrhage, unspecified; I10 Essential (primary) hypertension; D64.9 Anemia, unspecified; G89.29 Other chronic pain
CPT/HCPCS: 36415; 80053; 80061; 82607; 82728; 82746; 83540; 83550; 84550; 85025

== ENCOUNTER → 2023-11-09 12:19 | Outpatient (REF) | payer MEDICARE, BC, SELFPAY | LOC: HWRAD 12:19 | PROVIDERS: ATTENDING PHYSICIAN Nurse Practitioner Family; FAMILY PHYSICIAN Internal Medicine | DX: M79.2 Neuralgia and neuritis, unspecified (principal); M53.3 Sacrococcygeal disorders, not elsewhere classified | CPT/HCPCS: 72110 ==

== ENCOUNTER → 2023-11-23 07:32 | Outpatient (REF) | payer MEDICARE, BC, SELFPAY | LOC: DHCBC/DCA 07:32 | PROVIDERS: ATTENDING PHYSICIAN Internal Medicine Cardiovascular Disease; FAMILY PHYSICIAN Internal Medicine | DX: R07.89 Other chest pain (principal) | CPT/HCPCS: 78452; 93017; A9500; J2785 ==

== ENCOUNTER → 2023-12-14 13:34 | Outpatient (REF) | payer MEDICARE, BC, SELFPAY ==
[2023-12-14 16:33] LABS: Free T4 0.82 ng/dl (0.78-2.19)
[2023-12-14 16:46] LABS: TSH 4.38 uIU/ml (0.47-4.68)
== END ==
LOC: HWLAB 13:34
PROVIDERS: ATTENDING PHYSICIAN Internal Medicine Endocrinology, Diabetes & Metabolism; FAMILY PHYSICIAN Internal Medicine
DX: E89.0 Postprocedural hypothyroidism (principal)
CPT/HCPCS: 36415; 84439; 84443

== ENCOUNTER → 2024-02-09 08:56 | Outpatient (REF) | payer MEDICARE, BC, SELFPAY ==
[2024-02-09 12:19] LABS: % Basophils 0.6 % (0-2); % Eosinophils 6.8 % (0-6); % Immature Granulocytes 0.4 % (0-0.5); % Lymphocytes 25.3 % (20.5-51.1); % Monocytes 16.3 % (1.7-9.3); % Neutrophils 50.6 % (42.2-75.2); Absolute Eosinophils 0.4 10^3/uL (0-0.7); Absolute Lymphocytes 1.3 10^3/uL (1.2-3.4); Absolute Monocytes 0.8 10^3/uL (0.1-0.6); Absolute Neutrophils 2.6 10^3/uL (1.4-6.5); Hematocrit 35.5 % (37.0-47.0); Hemoglobin 11.6 g/dL (12.0-16.0); Mean Corp Hgb Conc. 32.7 g/dL (33.0-37.0); Mean Corpuscular Hgb 29.8 pg (27.0-31.0); Mean Corpuscular Volume 91.3 fL (81.0-99.0); Mean Platelet Volume 9.3 fL (7.4-10.4); Nucleated Red Blood Cells % 0 %; Platelet Count 265 10^3/uL (130-400); Red Blood Cell Count 3.89 10^6/uL (4.20-5.40); Red Cell Dist. Width 14.9 % (11.5-14.5); White Blood Cell Count 5.1 10^3/uL (4.8-10.8)
[2024-02-09 12:38] LABS: ALT (SGPT) 15 U/L (0-35); AST (SGOT) 23 U/L (14-36); Albumin 4.5 g/dl (3.5-5.0); Alkaline Phosphatase 92 U/L (38-126); Blood Urea Nitrogen 25 mg/dl (7-17); Calcium 9.7 mg/dl (8.4-10.2); Carbon Dioxide 25 mmol/L (22-30); Chloride 105 mmol/L (98-107); Glucose 88 mg/dl (70-99); HDL Cholesterol 79 mg/dl; Iron 71 ug/dl (37-170); LDL Cholesterol, Calculated 117 mg/dl; Potassium 4.7 mmol/L (3.5-5.1); Sodium 142 mmol/L (135-145); Total Bilirubin 0.4 mg/dl (0.2-1.3); Total Cholesterol 210 mg/dl (50-199); Total Protein 7.1 g/dl (6.3-8.2); Triglyceride 70 mg/dl (10-149); Uric Acid 5.4 mg/dl (2.5-6.2); Very Low Density Lipoprotein 14 mg/dl (0-30); eGFR 44.64
[2024-02-09 12:46] LABS: Percent Saturation 23 % (20-50); Total Iron Binding Capacity 304 ug/dl (265-497)
[2024-02-09 13:02] LABS: TSH 8.04 uIU/ml (0.47-4.68)
[2024-02-09 13:06] LABS: Ferritin 47.3 ng/ml (11.1-264.0)
[2024-02-09 16:56] LABS: Free T4 0.78 ng/dl (0.78-2.19)
== END ==
LOC: HWLAB 08:56
PROVIDERS: ATTENDING PHYSICIAN Internal Medicine
DX: I10 Essential (primary) hypertension (principal); E78.2 Mixed hyperlipidemia; Z86.39 Personal history of other endocrine, nutritional and metabolic disease; Z87.39 Personal history of other diseases of the musculoskeletal system and connective tissue; E61.1 Iron deficiency
CPT/HCPCS: 36415; 80053; 80061; 82728; 83540; 83550; 84439; 84443; 84550; 85025

== ENCOUNTER → 2024-02-24 15:21 | Outpatient (REF) | payer MEDICARE, BC, SELFPAY | LOC: HWWDC 15:21 | PROVIDERS: ATTENDING PHYSICIAN Internal Medicine | DX: Z12.31 Encounter for screening mammogram for malignant neoplasm of breast (principal) | CPT/HCPCS: 77063; 77067 ==

== ENCOUNTER → 2024-05-17 08:01 | Outpatient (REF) | payer MEDICARE, BC, SELFPAY | LOC: RAD 08:01 | PROVIDERS: ATTENDING PHYSICIAN Internal Medicine | DX: I83.893 Varicose veins of bilateral lower extremities with other complications (principal) | CPT/HCPCS: 93970 ==

== ENCOUNTER → 2024-06-10 12:13 | Outpatient (REF) | payer MEDICARE, BC, SELFPAY | LOC: HWRAD 12:13 | PROVIDERS: ATTENDING PHYSICIAN Surgery; FAMILY PHYSICIAN Internal Medicine; REFERRING PHYSICIAN Specialist | DX: R91.1 Solitary pulmonary nodule (principal) | CPT/HCPCS: 71250 ==

== ENCOUNTER → 2024-07-13 09:11 | Outpatient (REF) | payer MEDICARE, BC, SELFPAY ==
[2024-07-13 11:49] LABS: % Basophils 0.1 % (0-2); % Eosinophils 0.1 % (0-6); % Immature Granulocytes 1.2 % (0-0.5); % Lymphocytes 13.2 % (20.5-51.1); % Monocytes 13.4 % (1.7-9.3); Absolute Immature Granulocytes 0.1 10^3/uL (0-0.05); Absolute Lymphocytes 1.3 10^3/uL (1.2-3.4); Absolute Monocytes 1.3 10^3/uL (0.1-0.6); Absolute Neutrophils 7.1 10^3/uL (1.4-6.5); Hematocrit 41.4 % (37.0-47.0); Hemoglobin 13.5 g/dL (12.0-16.0); Mean Corp Hgb Conc. 32.6 g/dL (33.0-37.0); Mean Corpuscular Hgb 30.7 pg (27.0-31.0); Mean Corpuscular Volume 94.1 fL (81.0-99.0); Mean Platelet Volume 9.5 fL (7.4-10.4); Nucleated Red Blood Cells % 0 %; Platelet Count 309 10^3/uL (130-400); Red Cell Dist. Width 13.9 % (11.5-14.5); White Blood Cell Count 9.9 10^3/uL (4.8-10.8)
[2024-07-13 16:18] LABS: Ferritin 43.9 ng/ml (11.1-264.0)
[2024-07-13 18:05] LABS: ALT (SGPT) 20 U/L (0-35); AST (SGOT) 21 U/L (14-36); Albumin 4.8 g/dl (3.5-5.0); Alkaline Phosphatase 72 U/L (38-126); Blood Urea Nitrogen 42 mg/dl (7-17); Calcium 9.6 mg/dl (8.4-10.2); Carbon Dioxide 29 mmol/L (22-30); Chloride 101 mmol/L (98-107); Glucose 94 mg/dl (70-99); HDL Cholesterol 92 mg/dl; Iron 132 ug/dl (37-170); LDL Cholesterol, Calculated 118 mg/dl; Potassium 4.9 mmol/L (3.5-5.1); Sodium 139 mmol/L (135-145); Total Bilirubin 0.7 mg/dl (0.2-1.3); Total Cholesterol 229 mg/dl (50-199); Total Protein 7.4 g/dl (6.3-8.2); Triglyceride 95 mg/dl (10-149); Very Low Density Lipoprotein 19 mg/dl (0-30); eGFR 44.64
[2024-07-13 18:14] LABS: Percent Saturation 42 % (20-50); Total Iron Binding Capacity 313 ug/dl (265-497)
[2024-07-13 18:35] LABS: Uric Acid 6.4 mg/dl (2.5-6.2)
== END ==
LOC: HWLAB 09:11
PROVIDERS: ATTENDING PHYSICIAN Internal Medicine
DX: K92.2 Gastrointestinal hemorrhage, unspecified (principal); E78.2 Mixed hyperlipidemia; Z86.39 Personal history of other endocrine, nutritional and metabolic disease; Z87.39 Personal history of other diseases of the musculoskeletal system and connective tissue
CPT/HCPCS: 36415; 80053; 80061; 82728; 83540; 83550; 84443; 84550; 85025

== ENCOUNTER → 2024-09-28 10:41 | Outpatient (REF) | payer MEDICARE, BC, SELFPAY ==
[2024-09-28 11:52] LABS: Urine Albumin Negative (Neg - Trace); Urine Bilirubin Negative (Negative); Urine Character Clear (Clear); Urine Color Yellow; Urine Glucose Negative (Negative); Urine Ketone Negative (Negative); Urine Leukocyte 2+ (Negative); Urine Nitrite Negative (Negative); Urine Occult Blood 2+ (Negative); Urine Specific Gravity 1.005 (<1.030); Urine Urobilinogen Negative (Neg - 1+)
[2024-09-28 12:35] LABS: Urine Urothelial Cell 0-2 /LPF (FEW)
[2024-09-28 12:36] LABS: Urine Bacteria Moderate (Negative); Urine White Cell 16-20 /HPF (0-5)
== END ==
LOC: HWLAB 10:41
PROVIDERS: ATTENDING PHYSICIAN Internal Medicine Geriatric Medicine; FAMILY PHYSICIAN Internal Medicine
DX: R31.9 Hematuria, unspecified (principal)
CPT/HCPCS: 81003; 81015; 87077; 87086; 87186

== ENCOUNTER 2024-10-01 06:35 | Inpatient (IN) | payer MEDICARE, BC, SELFPAY ==
[2024-10-01] VITALS (22 sets, daily range): BP systolic 106–162; BP diastolic 58–89; BMI 29.1
[2024-10-01 03:01] LABS: % Basophils 0.2 % (0-2); % Eosinophils 0.5 % (0-6); % Immature Granulocytes 0.5 % (0-0.5); % Lymphocytes 2.3 % (20.5-51.1); % Monocytes 5.2 % (1.7-9.3); % Neutrophils 91.3 % (42.2-75.2); Absolute Eosinophils 0.1 10^3/uL (0-0.7); Absolute Immature Granulocytes 0.1 10^3/uL (0-0.05); Absolute Lymphocytes 0.3 10^3/uL (1.2-3.4); Absolute Monocytes 0.7 10^3/uL (0.1-0.6); Absolute Neutrophils 11.8 10^3/uL (1.4-6.5); Hemoglobin 11.9 g/dL (12.0-16.0); Mean Corp Hgb Conc. 33.1 g/dL (33.0-37.0); Mean Corpuscular Hgb 30.9 pg (27.0-31.0); Mean Corpuscular Volume 93.5 fL (81.0-99.0); Mean Platelet Volume 9.7 fL (7.4-10.4); Nucleated Red Blood Cells % 0 %; Platelet Count 214 10^3/uL (130-400); Red Blood Cell Count 3.85 10^6/uL (4.20-5.40); Red Cell Dist. Width 13.7 % (11.5-14.5); White Blood Cell Count 12.9 10^3/uL (4.8-10.8)
--- NOTE | 2024-10-01 03:09 | ED.GENMED ---
History of Present Illness
General
Chief Complaint: Fever
Source: patient
Exam Limitations: none
Time Seen by Provider: 10/01/24 02:37
Nursing documentation reviewed up to this point in time: agreed with
History of Present Illness
History of Present Illness:
Patient presents to ED secondary to generalized weakness, dizziness, along with chills sensation, usually after taking 1 tablet of Macrobid, ordered by her primary care physician with concern for potential urinary tract infection, as patient started
to see small amounts of blood with urination this afternoon. Patient spoke with primary care's office who ordered Macrobid. Patient does have history of sepsis in the past secondary to urinary tract infection. Denies abdominal pain. Denies
coughing. Denies nausea, vomiting, or diarrhea. Denies dizziness. This evening, patient states that she felt unsteady when walking to restroom and called her spouse for help. Secondary to generalized weakness and unsteadiness, spouse called 911,
as he was unable to assist her back into bed.
Past History
Past History
ED Past Medical History: HTN, Hypercholesterolemia and Other (colitis, bleeding diverticuli)
ED Past Surgical History: Other
Social History
Tobacco: Non-smoker
Alcohol: Occasional
Drug: None
Personal:
Living: with family
Review of Systems
Review of Systems
Allergies reviewed?: Yes
All Other Systems: ROS reviewed and negative except as documented in HPI and ROS
Constitutional: Reports fever and chills
Respiratory: Reports no symptoms; Denies trouble breathing
Cardiac: Reports no symptoms; Denies chest pain
ABD/GI: Reports no symptoms; Denies abdominal pain or diarrhea
: Reports bleeding
Musculoskeletal: Reports no symptoms
Skin: Reports no symptoms
Neurological: Reports no symptoms
Phy Exam
Physical Exam
Physical Exam:
Physical Exam
General: no apparent distress, not acutely ill. afebrile
Head: nc/at. eomi
Neck: supple. normal range of motion.
Heart: s1/s2 regular rate and rhythm, no murmur
Lungs: no acute respiratory distress. clear bilaterally
Abdomen: normal bowel sounds. not tender. no distention
Neuro: alert and oriented x 3. no focal neurological deficits
Skin: no rash
Psychiatric: well kept. interactive and cooperative
Extremities: no edema. no calf tenderness.
Sepsis
Sepsis Screening
Sepsis Assessment: Sepsis
Sepsis Screen
Sepsis Screen: Sepsis
Date: 10/01/24
Time: 13:51
Course
Orders/Labs/Results
Orders:
Orders
10/01/24 02:39
Complete Blood Count/With Diff Urgent
Comprehensive Metabolic Panel Urgent
Lactic Acid Q4H
Comment: ON ICE, CANCEL 2ND ORDER IF FIRST LACTIC ACID LEVEL <2
Blood Culture Urgent
LUX Source: Blood/Venous
Specimen Description:
10/01/24 03:04
Acetaminophen [Tylenol] 650 mg PO NOW STA
10/01/24 03:15
0.9% Sodium Chloride 500 ml [Nss] 500 ml IV BOLUS
10/01/24 03:23
COVID-19 Antigen Urgent
Source: Nasal Swab
Influenza A+B Rapid Molecular Urgent
LUX Source: Nasal Swab
Specimen Description:
10/01/24 04:21
Urinalysis Reflex To Culture Urgent
Date Specimen was Collected: 10/01/24
Time Specimen was Collected: 04:18
Urine Microscopic Reflex Cult Urgent
Urine Culture Urgent
LUX Source: U
Specimen Description:
Date Specimen was Collected: 10/01/24
Time Specimen was Collected: 04:18
10/01/24 05:29
CefTRIAXone [Rocephin] 1,000 mg IV NOW STA
10/01/24 05:50
Lactic Acid Urgent
10/01/24 Breakfast
Regular
At Your Request: Full Participation
10/01/24 06:08
Admit/Transfer Patient As Directed
Co-Sign Provider:
Level of Care: Inpatient admission
Assign to:: Medical/Surgical
Physician / Group: hospitalist
Diagnosis: sepsis
Reason for Hospitalization: complicated uti with sepsis
Expected length of stay greater than two midnights?: Yes
ELOS- Estimated Length of Stay in days: 2
I certify the patient meets the requirements for IP care: Yes
PRN Pain Medication Management As Directed
May give lesser potent ordered pain med per pt: Yes
preference::
Protocol:: Medication orders for pain may be administered in a
manner that supports deferring to patient preference
when the pt is:
- Requesting an ordered lesser potent pain medication.
Least to most potent pain medications are defined
as: acetaminophen < NSAID < tramadol < opioids
(morphine, oxycodone, hydromorphone).
- Requesting a lesser dose of the same medication IF
ORDERED.
- Requesting a less intrusive route of administration
if both routes are prescribed by the provider (PO <
IV).
10/01/24 06:11
Code Status As Directed
Resuscitation Status: Do not resuscitate
Reached after discussion with pt or family/Healthcare POA: Yes
10/01/24 06:12
DNR Bracelet Application ONCE
10/01/24 06:13
0.9% Sodium Chloride 1000 ml [Nss] 1,000 ml IV BOLUS
10/01/24 06:21
0.9% Sodium Chloride 500 ml [Nss] 500 ml IV BOLUS
10/01/24 07:00
Flush (0.9% Sodium Chloride) [Flush (Nss)] See Dose Instructions IV PER PROTOCOL
10/01/24 09:48
Acetaminophen [Tylenol] 650 mg PO Q4HPRN PRN
Allopurinol [Zyloprim] 200 mg PO BID
Bisacodyl [Dulcolax] 10 mg RECTAL [id number] PRN
Diltiazem Extended Release [Cardizem Cd] 120 mg PO DAILY
Docusate Sodium [Colace] 100 mg PO DAILY
Escitalopram Oxalate [Lexapro] 5 mg PO DAILY
Gabapentin [Neurontin] 600 mg PO BID
Ondansetron Injectable [Zofran] 4 mg IV Q6HPRN PRN
Polyethylene Glycol Powder [Miralax] 17 grams PO DAILY
10/01/24 09:48
Activity As Directed
Activity Level: With Assistance
Vital Signs As Directed
Frequency: Per unit guidelines
Pulse Ox/spot Check [RESP] Routine
Quantity: 1
DX Deep Vein Thrombosis Video Routine
10/01/24 18:00
Enoxaparin Sodium [Lovenox] 40 mg SC QPM
Pravastatin Sodium [Pravachol] 20 mg PO QPM
10/02/24 06:00
CefTRIAXone [Rocephin] 1,000 mg IV Q24H
Abnormal Lab Results
10/01/24 10/01/24
02:39 04:21
WBC 12.9 H 10^3/uL
(4.8-10.8)
RBC 3.85 L 10^6/uL
(4.20-5.40)
Hgb 11.9 L g/dL
(12.0-16.0)
Hct 36.0 L %
(37.0-47.0)
Abs Immat Gran (auto) 0.1 H 10^3/uL
(0-0.05)
Absolute Neuts (auto) 11.8 H 10^3/uL
(1.4-6.5)
Absolute Lymphs (auto) 0.3 L 10^3/uL
(1.2-3.4)
Absolute Monos (auto) 0.7 H 10^3/uL
(0.1-0.6)
Neutrophils % 91.3 H %
(42.2-75.2)
Lymphocytes % 2.3 L %
(20.5-51.1)
BUN 27 H mg/dl
(7-17)
Creatinine 1.1 H mg/dL
(0.6-1.0)
Glucose 172 H mg/dl
(70-99)
Lactic Acid 3.2 H mmol/L
(0.7-2.0)
Ur Occult Blood Reflex 1+ A
(Negative)
Urine WBC (Reflex) 16-20 A /HPF
(0-5)
Urine Bacteria (Reflex) Few A
(Negative)
Urine Albumin (Reflex) 2+ A
(Neg - Trace)
10/01/24 02:39
10/01/24 02:39
Vital Signs
Initial and Last Documented VS:
Initial Vital Signs
BP
154/74
10/01/24 02:28
Last Documented Vital Signs
Temp Pulse Resp BP Pulse Ox
97.8 F 72 16 133/75 95
10/01/24 09:47 10/01/24 10:41 10/01/24 09:47 10/01/24 10:41 10/01/24 09:47
MDM/Problems Addressed
MDM/Problems Addressed:
History and exam concerning for sepsis, likely secondary to recurrent UTI.
Blood culture pending. Urine culture pending.
*Critical Care Note
Total Time (30-74mins, 75-104mins- exclusive of procedures): Not Applicable
ED Attending Note
-
Portions of this chart may have been created with voice recognition software.� Occasional wrong word or��sound alike� substitutions may have occurred due to the inherent limitations of voice recognition software.
Discharge Plan
Departure
Patient Disposition: Admit
Date of Disposition: 10/01/24
Time of Disposition: 05:31
Admit to: Telemetry
Presentation/result/management discussed w/ accepting MD/DO: Hospitalist
Discharge Problem:
Sepsis, Urinary tract infection
Interventions
Interventions:
*Risk Screen - Suicide Last Done: 10/01/24 02:31
*General Assessment Last Done: 10/01/24 02:31
*Neglect/Abuse Screening Last Done: 10/01/24 02:31
*ED- Fall Risk Assessment Last Done: 10/01/24 07:40
*ED COVID-19 Vaccine History Last Done: 10/01/24 02:31
ED- Neurological Assessment Last Done: 10/01/24 07:40
ED-Skin Assessment Last Done: 10/01/24 07:40
[2024-10-01 03:23] LABS: Lactic Acid 3.2 mmol/L (0.7-2.0)
[2024-10-01 03:24] LABS: ALT (SGPT) 22 U/L (0-35); AST (SGOT) 34 U/L (14-36); Albumin 4.6 g/dl (3.5-5.0); Alkaline Phosphatase 88 U/L (38-126); Blood Urea Nitrogen 27 mg/dl (7-17); Calcium 9.3 mg/dl (8.4-10.2); Carbon Dioxide 22 mmol/L (22-30); Chloride 106 mmol/L (98-107); Estimated Creatinine Clearance 34 ml/min; Glucose 172 mg/dl (70-99); Potassium 3.9 mmol/L (3.5-5.1); Sodium 143 mmol/L (135-145); Total Bilirubin 0.8 mg/dl (0.2-1.3); eGFR 49.55
[2024-10-01] MEDS: TYLENOL 650 MG PO ×3 (03:24→20:18)
[2024-10-01] MEDS: NSS 500 IV (03:25)
[2024-10-01 04:28] LABS: COVID-19 Antigen Negative (Negative)
[2024-10-01 04:33] LABS: Urine Albumin 2+ (Neg - Trace); Urine Bilirubin Negative (Negative); Urine Character Clear (Clear); Urine Color Yellow; Urine Glucose Negative (Negative); Urine Ketone Negative (Negative); Urine Leukocyte Negative (Negative); Urine Nitrite Negative (Negative); Urine Occult Blood 1+ (Negative); Urine Specific Gravity 1.015 (<1.030); Urine Urobilinogen Negative (Neg - 1+)
[2024-10-01 04:47] LABS: Urine Squamous Cell 0-2 /LPF (Few)
[2024-10-01 04:49] LABS: Urine White Cell 16-20 /HPF (0-5)
[2024-10-01 04:50] LABS: Urine Bacteria Few (Negative); Urine Red Blood Cell 0-2 /HPF (0-2)
--- NOTE | 2024-10-01 05:50 | HPS.HSE ---
Family Physician
-
Family Physician: NOT KNOW UNKNOWN - PT DOES
Chief Complaint
-
Chills and fever
History of Present Illness
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
who presents to the emergency department with episode of chills confusion.
Patient reported that for about 2 weeks she has been having spots of blood on her pad. She started to have gross hematuria. Despite this hematuria episodes the patient denies having any dysuria. She denies any flank pain. She denies any nausea
or vomiting. She stated that due to the gross materia she had a UA that was found to be positive. She was then started on antibiotics. She took the first dose of Macrobid this evening prior to coming to the emergency department. Immediately
after that first dose the patient reported that she started feeling nauseous. She reported having chills. She denied sweats. She did not measure a temperature at home. She also started having pounding headache. She denied flank pains. Patient
attempted to use the commode but was confused and ultimately EMS was called. She denies any sick contacts. She denies any recent travel. She still denies any abdominal pain nausea or vomiting. She denies any joint swelling, skin rash cough or
shortness of breath.
EMS gave the patient about 500 cc of normal saline and transferred to the emergency department.
On arrival in the emergency department she had a temp of 100.6, she was normotensive with a blood pressure of 160/60 and a pulse rate of 64. She was satting 98% on room air. The CBC was notable for leukocytosis to 12.9 otherwise unremarkable. She
had elevated lactic acid of 3.2. Electrolytes BUN/creatinine were normal. UA was softly positive with many WBCs and few bacteria but no nitrites and no new leukocyte esterase.
The u/a done as outpatient was definitively positive with leukocyte esterase, wbc, blood, moderate bacteria. She has grown Klebsiella that appears generally sensitive.
Medical History
Past Medical History
Past Medical History: Reports Other
Additional Past Medical History:
HTN, Hypercholesterolemia and Other (colitis, bleeding diverticuli)
Past Surgical History: Reports Other
Additional Past Surgical History:
mergent laparotomy for bowel obstruction with extended right colectomy ileostomy and had a scheduled robotic ileostomy closure on 05/06.
Social History
Tobacco: Non-smoker
Alcohol: Occasional
Personal:
Living: With Family
Family History
Family History: Not pertinent
Allergies / Home Medications
Allergies reflects when Allergies were last updated in [facility].
Home Medications with original date entered in [facility]
Allergy/Medication List:
Allergies
Allergy/AdvReac Type Severity Reaction Status Date / Time
codeine [Codeine] Allergy vomiting,di Verified 10/01/24 02:29
zziness
hydromorphone [From Dilaudid] Allergy Unknown Verified 10/01/24 02:29
morphine Allergy Nausea / Verified 10/01/24 02:29
Vomiting
oxycodone HCl [From Percocet] Allergy vomiting,di Verified 10/01/24 02:29
zziness
Penicillins Allergy 50 yrs Verified 10/01/24 02:29
ago>rash,swelling
of tongue
Home Medications
calcium 600 mg (as carbonate)-vitamin D3 5 mcg (200 unit) tablet 1 tab PO BID Supplement 01/02/23
diltiazem HCl 240 mg capsule,24 hr,extended release 240 mg PO DAILY #0 caps 01/30/23
Bifidobacterium infantis 4 mg capsule (Align (B.infantis)) 4 mg PO DAILY Probiotic 05/25/23
cholecalciferol (vitamin D3) 50 mcg (2,000 unit) capsule (Vitamin D3) 50 mcg PO DAILY Supplement 05/25/23
potassium chloride 20 mEq tablet,extended release 20 meq PO BID Electrolyte Repletion 05/25/23
acetaminophen 325 mg tablet (Tylenol) 325 mg PO Q6HPRN PRN mild pain 06/04/23
calcium polycarbophil 625 mg tablet (FiberCon) 625 mg PO HS Supplement 06/04/23
cyanocobalamin (vitamin B-12) 1,000 mcg tablet 1,000 mcg PO DAILY Supplement 06/04/23
pravastatin 20 mg tablet 20 mg PO QPM High Cholesterol 06/04/23
docusate sodium 100 mg capsule (Colace) 100 mg PO HS Constipation 08/06/23
gabapentin 300 mg capsule 600 mg PO BID pain 08/06/23
polyethylene glycol 3350 17 gram oral powder packet (HealthyLax) 17 g PO DAILY #100 ea 08/15/23
sennosides 8.6 mg tablet (Senna Laxative) 17.2 mg (2 x 8.6 mg) PO HS PRN Constipation #30 tabs 08/15/23
ondansetron 4 mg disintegrating tablet 4 mg PO TID PRN nausea and vomiting #10 tabs 09/18/23
Review of Systems
-
History Source: Patient
Constitutional: Reports Chills
EENT: Reports No Symptoms
Respiratory: Reports No Symptoms
Cardiac: Reports No Symptoms
Abdomen/GI: Reports No Symptoms
: Reports No Symptoms
Musculoskeletal: Reports No Symptoms
Neurological: Reports No Symptoms
Endocrine: Reports No Symptoms
Hematologic/Lymphatic: Reports No Symptoms
Psych: Reports No Symptoms
Physical Exam
Vital Signs
Vital Signs
Temp Pulse Resp BP Pulse Ox
100.6 F H 64 20 162/62 93
10/01/24 02:42 10/01/24 03:03 10/01/24 03:03 10/01/24 03:03 10/01/24 03:03
Physical Exam
General: Well Developed, Well Nourished, No Apparent Distress and Comfortable
HEENT: NormoCephalic, Anicteric, Moist mucous membranes and Atraumatic
Respiratory: Clear
Cardiac: S1/S2 and Regular Rhythm
Breast: Deferred by me
GI: Soft, Non Tender, Non Distended and Normal Bowel Sounds
Rectal: Deferred by Provider
Genito-urinary: Deferred by me
Musculoskeletal: No Clubbing, No Cyanosis and No Edema
Skin: Warm
Neuro: AO x 3 and Nonfocal/grossly intact
Hematologic/Lymphatic: No Lymphadenopathy
Psych: Calm
Laboratory Results
-
10/01/24 02:39
10/01/24 02:39
Laboratory Results
Lactic Acid Cancelled 10/01/24 04:13
Total Bilirubin 0.8 mg/dl (0.2-1.3) 10/01/24 02:39
AST 34 U/L (14-36) 10/01/24 02:39
ALT 22 U/L (0-35) 10/01/24 02:39
Alkaline Phosphatase 88 U/L (38-126) 10/01/24 02:39
Data Reviewed
-
Lab Data: Labs Reviewed by me
Old Records: Reviewed
Impression/Plan
-
IMPRESSION:
83 y.o with h/o HTN, pror bowel resection, prior UTIs and sepsis presents to ED with chills, headache and episode of confusion. Recent history of visible hematuria intermittently for which a u/a was done as outpatient and was positive. She started
taking nitrofurantoin and took only one dose prior to acute onset of her chills. U/A done on 09/28 is positive and grew Klebsiella like the etiology of her current febrile episode. Given fever, possibly pyelonephritis though no mariah pain.
PLAN:
1. UTI with sepsis - She has temp of 100.6, wbc > 99739, elevated lactic acid and a source.
- admit to med/surg
- give 1500 ml fluids total (no CHF)
- blood culture and urine culture sent again
- start IV ceftriaxone 1 g daily based on recent cultures
- antipyretics
- continue bp meds with hold parameters
DVT PPX - lovenox sq
Code status - DNR
[2024-10-01] MEDS: ROCEPHIN 1000 MG IV (06:03)
[2024-10-01] MEDS: NSS 1000 IV (06:31)
--- NOTE | 2024-10-01 09:48 | EDRN ---
the pt pressed the call pino and this RN entered the pts room, the pt stated that she needed to use the bathroom, the pt was able to ambulate independently without issues and use the bathroom
--- NOTE | 2024-10-01 09:51 | EDRN ---
this RN processed admission orders and called pharmacy and notified them
--- NOTE | 2024-10-01 09:59 | EDRN ---
this RN performed and completed admission, medication have been verified by pharmacy
--- NOTE | 2024-10-01 10:00 | EDRN ---
the pts home medication list has not been verified, this RN asked the pt if she had a list of home medications with her and the pt stated no, this RN notified the provider
[2024-10-01] MEDS: LEXAPRO 5 MG PO (10:20)
[2024-10-01] MEDS: NEURONTIN 600 MG PO ×2 (10:20→19:55)
[2024-10-01] MEDS: MIRALAX 17 GRAMS PO (10:20)
[2024-10-01] MEDS: ZYLOPRIM PO ×2 (10:20→11:41)
[2024-10-01] MEDS: COLACE PO (10:21)
[2024-10-01] MEDS: CARDIZEM CD 120 MG PO (10:41)
[2024-10-01] MEDS: CARDIZEM CD PO (10:43)
--- NOTE | 2024-10-01 11:05 | EDRN ---
Dr. Mahmood [facility]
--- NOTE | 2024-10-01 11:41 | EDRN ---
the pt stated to this RN, 'I do not take Allopurinol anymore and i take my colace at night', this RN will notify provider
--- NOTE | 2024-10-01 14:15 | EDRN ---
the pts lunch has arrived
--- NOTE | 2024-10-01 14:45 | W.PN.HOSP.TC ---
Addendum entered and electronically signed by Donna Mahmood MD 10/01/24 17:02:
I saw and evaluated the patient independently. I reviewed the resident�s note and agree with findings and plan as documented by Dr. Galloway.
GENERAL: well developed, well nourished, female in no apparent distress
HEENT: flushed face--NC/AT
HEART: regular rate and rhythm, +S1, +S2, JAZZMINE
LUNGS : clear to auscultation bilaterally
ABDOM: soft, nontender, nondistended, + bowel sounds
EXT: no cyanosis, clubbing, or edema
NEUROLOGIC: grossly intact
sepsis (POA) due to Klebsiella pneumonia UTI--urine culture positive 09/28--IVF--IV ceftriaxone--await blood and urine culture
Essential hypertension--Continue blood pressure medication with hold parameters
History of constipation--Continue Colace as needed
History of migraine headaches--Continue eletriptan, pt may take own--Tylenol as needed
History of chronic back pain--Continue gabapentin
History of gout--Continue allopurinol
History of vitamin B12 deficiency--Continue cyanocobalamin
History of anxiety/depression--Continue SSRI
Hyperlipidemia--Continue pravastatin
DVT proph--Lovenox
CODE STATUS-- DNR
Original Note:
Today's Communication/Plan
-
Continue IV fluids and antibiotics
Await blood and urine culture
Monitor temperature curve and white count
Assessment / Plan
Assessment / Plan
Impression
UTI with sepsis
Essential hypertension
History of constipation
History of migraine headaches
Chronic back pain
History of gout
History of vitamin B12 deficiency
History of anxiety/depression
Hyperlipidemia
Plan
UTI with sepsis (fever, leukocytosis, +source of infection)
Urine cx positive for Klebsiella pneumonia on 09/28/24
Afebrile with elevated white count
Continue IV fluids
Continue IV ceftriaxone
Await blood culture and urine culture
Antipyretics
Monitor temperature curve and white count
Essential hypertension
Continue blood pressure medication with hold parameters
History of constipation
Continue Colace as needed
History of migraine headaches
Continue eletriptan
Tylenol as needed
History of chronic back pain
Continue gabapentin
History of gout
Continue allopurinol
History of vitamin B12 deficiency
Continue cyanocobalamin
History of anxiety/depression
Continue SSRI
Hyperlipidemia
Continue pravastatin
DVT prophylaxis-Lovenox
CODE STATUS DNR
Regular diet
Anticipated Discharge: > 48 hours
Subjective/Interval History
-
Date of Service: October 01, 2024
Patient presented to the ED with chills and confusion.
Objective Data
-
Labs:
Laboratory Results
10/01/24
02:39
WBC 12.9 H
Hgb 11.9 L
Hct 36.0 L
Plt Count 214
Sodium 143
Potassium 3.9
Chloride 106
Carbon Dioxide 22
BUN 27 H
Creatinine 1.1 H
Glucose 172 H
Calcium 9.3
Total Bilirubin 0.8
AST 34
ALT 22
Alkaline Phosphatase 88
Vital Signs:
Vital Signs
Temp Pulse Resp BP Pulse Ox
97.8 F 72 16 133/75 95
10/01/24 09:47 10/01/24 10:41 10/01/24 09:47 10/01/24 10:41 10/01/24 09:47
Review of Systems
-
All other systems: Reviewed and negative
Physical Exam
-
General: No Apparent Distress and Comfortable
HEENT: Normocephalic and Atraumatic
Respiratory: Clear to Auscultation
Cardiac: Regular Rhythm, S1/S2 and Murmur (Loud systolic)
GI: Soft, Nontender and Nondistended
Genito-urinary: Costovertebral Angle Tend
Skin: Warm and Dry
Neuro: AO x 3
Psych: Calm
Data Reviewed
-
CT Scan: Report Reviewed by me and Discussed with Physician
Labs: Labs Reviewed by me and Discussed with Physician
--- NOTE | 2024-10-01 15:10 | EDRN ---
this RN called the receiving unit and notified them that paper report was going to be tubed up
--- NOTE | 2024-10-01 15:35 | CM ---
fund development manager reviewed patient's chart and met with patient and patient lives with her spouse in a one story home, patient is independent with adl's and ambulation, no dme, plan is to home when stable, no needs.
PCP: Dr. Phillip Smith
Pharmacy: [facility] [place]
Plan: Home no needs when stable.
[2024-10-01] MEDS: PRAVACHOL 20 MG PO (18:10)
[2024-10-01] MEDS: LOVENOX 40 MG SC (18:10)
[2024-10-01] MEDS: ZYLOPRIM 200 MG PO (19:56)
[2024-10-02] MEDS: TYLENOL 650 MG PO ×2 (03:46→16:41)
[2024-10-02] MEDS: ROCEPHIN 1000 MG IV (06:02)
[2024-10-02] MEDS: STERILE WATER FOR INJECTION 10 ML IV (06:02)
[2024-10-02 07:18] VITALS: BP 141/64
[2024-10-02 08:10] LABS: % Basophils 0.3 % (0-2); % Eosinophils 4.1 % (0-6); % Immature Granulocytes 0.3 % (0-0.5); % Lymphocytes 12.2 % (20.5-51.1); % Monocytes 11.7 % (1.7-9.3); % Neutrophils 71.4 % (42.2-75.2); Absolute Eosinophils 0.3 10^3/uL (0-0.7); Absolute Lymphocytes 0.9 10^3/uL (1.2-3.4); Absolute Monocytes 0.8 10^3/uL (0.1-0.6); Absolute Neutrophils 5.1 10^3/uL (1.4-6.5); Hematocrit 31.6 % (37.0-47.0); Hemoglobin 10.3 g/dL (12.0-16.0); Mean Corp Hgb Conc. 32.6 g/dL (33.0-37.0); Mean Corpuscular Hgb 30.7 pg (27.0-31.0); Mean Platelet Volume 9.5 fL (7.4-10.4); Nucleated Red Blood Cells % 0 %; Platelet Count 175 10^3/uL (130-400); Red Blood Cell Count 3.36 10^6/uL (4.20-5.40); Red Cell Dist. Width 14.3 % (11.5-14.5); White Blood Cell Count 7.1 10^3/uL (4.8-10.8)
[2024-10-02 08:19] LABS: Blood Urea Nitrogen 22 mg/dl (7-17); Calcium 8.9 mg/dl (8.4-10.2); Carbon Dioxide 30 mmol/L (22-30); Chloride 109 mmol/L (98-107); Estimated Creatinine Clearance 42 ml/min; Glucose 93 mg/dl (70-99); Potassium 3.8 mmol/L (3.5-5.1); Sodium 142 mmol/L (135-145); eGFR > 60.00
[2024-10-02] MEDS: MIRALAX 17 GRAMS PO (08:23)
[2024-10-02] MEDS: CARDIZEM CD 120 MG PO (08:25)
[2024-10-02] MEDS: COLACE PO (08:25)
[2024-10-02] MEDS: VISBIOME 1 CAP PO (08:25)
[2024-10-02] MEDS: ZYLOPRIM 200 MG PO (08:25)
[2024-10-02] MEDS: FLUSH (NSS) 1 FLUSH IV (08:26)
[2024-10-02] MEDS: NEURONTIN 600 MG PO ×2 (08:26→19:38)
[2024-10-02] MEDS: VITAMIN B-12 1000 MCG PO (08:26)
[2024-10-02] MEDS: LEXAPRO 5 MG PO (08:26)
--- NOTE | 2024-10-02 11:07 | W.PN.UPDATE ---
Update Note
Progress Note Update
I saw and evaluated the patient. I reviewed the resident�s note and agree with findings and plan as documented in the resident�s note.
No new complaints.
Gen: NAD, AAOx3.
Eyes: EOMI, PERRLA, no scleral icterus.
Neck: supple.
CV: RRR, +S1/S2, no m/r/g.
Resp: CTAB, no rales, wheezes, or rhonchi.
Abd: +BS, soft, NT, ND
Skin: No rashes.
Neuro: CN 2-12 intact, non-focal.
Psych: Normal mood and affect.
10/01/24 02:39 Blood/Venous Blood Culture - Preliminary
No Growth in 24 hours- Final report to follow
10/01/24 03:23 Nasal Swab Influenza Types A & B (ART) - Final
Negative for Influenza A & B, NAAT
Negative results must be combined with clinical observations
and patient history.
Nucleic Acid Amplification test (NAAT)performed on the
[employer] ID NOW platform.
Sepsis (POA) due to Klebsiella pneumonia UTI:
-UCx POS 09/28
-s/p IVFs
-cont Rocephin
-leukocytosis has resolved
-follow Cxs
Other problems:
Essential HTN: cont Cardizem
h/o constipation: Colace PRN
h/o migraine headaches: cont Relpax
h/o chronic back pain: cont gabapentin
h/o gout: cont allopurinol
h/o vitamin B12 deficiency: cont cyanocobalamin
h/o anxiety/depression: cont Lexapro
HLD: cont statin
DNR/Lovenox
--- NOTE | 2024-10-02 11:14 | W.PN.HOSP.TC ---
Today's Communication/Plan
-
Stop IV fluids
Continue IV ceftriaxone
Blood culture recovered no growth in first 24h, will wait for final result
Await urine culture
Assessment / Plan
Assessment / Plan
Impression
UTI with sepsis
Essential hypertension
History of constipation
History of migraine headaches
Chronic back pain
History of gout
History of vitamin B12 deficiency
History of anxiety/depression
Hyperlipidemia
Plan
UTI with sepsis (fever, leukocytosis, +source of infection)
Urine cx positive for Klebsiella pneumonia on 09/28/24
Afebrile with elevated white count
Stop IV fluids
Continue IV ceftriaxone
Blood culture recovered no growth in first 24h, will wait for final result
Await urine culture
Antipyretics
Monitor temperature curve and white count
Essential hypertension
Continue blood pressure medication with hold parameters
History of constipation
Continue Colace as needed
History of migraine headaches
Continue eletriptan
Tylenol as needed
History of chronic back pain
Continue gabapentin
History of gout
Continue allopurinol
History of vitamin B12 deficiency
Continue cyanocobalamin
History of anxiety/depression
Continue SSRI
Hyperlipidemia
Continue pravastatin
DVT prophylaxis-Lovenox
CODE STATUS DNR
Regular diet
Anticipated Discharge: > 48 hours
Subjective/Interval History
-
Date of Service: October 02, 2024
No overnight events
Objective Data
-
Labs:
Laboratory Results
10/02/24
07:57
WBC 7.1
Hgb 10.3 L
Hct 31.6 L
Plt Count 175
Sodium 142
Potassium 3.8
Chloride 109 H
Carbon Dioxide 30
BUN 22 H
Creatinine 0.9
Glucose 93
Calcium 8.9
Vital Signs:
Vital Signs
Temp Pulse Resp BP Pulse Ox
97.5 F 63 18 141/84 96
10/02/24 07:18 10/02/24 08:25 10/02/24 07:18 10/02/24 08:25 10/02/24 08:05
I&O
10/01/24 10/02/24 10/03/24
06:59 06:59 06:59
Intake Total 480 / 480
Balance 480 / 480
Review of Systems
-
All other systems: Reviewed and negative
Physical Exam
-
General: No Apparent Distress and Comfortable
HEENT: Normocephalic and Atraumatic
Respiratory: Clear to Auscultation
Cardiac: Regular Rhythm, S1/S2 and Murmur
GI: Soft, Nontender and Nondistended
Musculoskeletal: No Edema
Neuro: AO x 3
Psych: Calm
Data Reviewed
-
Labs: Labs Reviewed by me and Discussed with Physician
[2024-10-02 15:07] VITALS: BP 147/78
--- NOTE | 2024-10-02 16:44 | PTCARENOTE ---
Pt AAO x3, MANN well, OOB in room/to BR; yuri well, no c/o weakness/dizziness. VSS. On room air- pulse ox 97%, no SOB noted. Abd soft, rounded, yuri PO well. Voids in BR without difficulty. Resting in bed at present, no c/o. Will continue to
monitor
[2024-10-02] MEDS: LOVENOX 40 MG SC (17:24)
[2024-10-02] MEDS: PRAVACHOL 20 MG PO (17:24)
[2024-10-02 23:39] VITALS: BP 164/90
[2024-10-03] MEDS: ROCEPHIN 1000 MG IV (04:59)
[2024-10-03] MEDS: STERILE WATER FOR INJECTION 10 ML IV (05:00)
[2024-10-03 06:39] LABS: Hemoglobin 11.2 g/dL (12.0-16.0); Mean Corp Hgb Conc. 32.9 g/dL (33.0-37.0); Mean Corpuscular Hgb 30.8 pg (27.0-31.0); Mean Corpuscular Volume 93.4 fL (81.0-99.0); Mean Platelet Volume 9.8 fL (7.4-10.4); Platelet Count 214 10^3/uL (130-400); Red Blood Cell Count 3.64 10^6/uL (4.20-5.40); Red Cell Dist. Width 13.5 % (11.5-14.5); White Blood Cell Count 5.9 10^3/uL (4.8-10.8)
[2024-10-03 06:43] LABS: Blood Urea Nitrogen 16 mg/dl (7-17); Calcium 9.2 mg/dl (8.4-10.2); Carbon Dioxide 29 mmol/L (22-30); Chloride 105 mmol/L (98-107); Estimated Creatinine Clearance 42 ml/min; Glucose 99 mg/dl (70-99); Potassium 3.6 mmol/L (3.5-5.1); Sodium 144 mmol/L (135-145); eGFR > 60.00
[2024-10-03 07:30] VITALS: BP 190/94
[2024-10-03] MEDS: ZYLOPRIM 200 MG PO (08:14)
[2024-10-03] MEDS: VITAMIN B-12 1000 MCG PO (08:14)
[2024-10-03] MEDS: VISBIOME 1 CAP PO (08:14)
[2024-10-03] MEDS: CARDIZEM CD 120 MG PO (08:14)
[2024-10-03] MEDS: LEXAPRO 5 MG PO (08:14)
[2024-10-03] MEDS: COLACE 100 MG PO (08:14)
[2024-10-03] MEDS: NEURONTIN 600 MG PO ×2 (08:15→20:06)
[2024-10-03] MEDS: MIRALAX 17 GRAMS PO (08:15)
--- NOTE | 2024-10-03 09:21 | W.PN.HOSP.TC ---
Today's Communication/Plan
-
Blood culture negative till date
Urine culture covered Klebsiella pneumonia, sensitivities available
Potential discharge with PO Keflex
Assessment / Plan
Assessment / Plan
Impression
UTI with sepsis
Essential hypertension
History of constipation
History of migraine headaches
Chronic back pain
History of gout
History of vitamin B12 deficiency
History of anxiety/depression
Hyperlipidemia
Plan
UTI with sepsis
Afebrile, leukocytosis resolved
Urine cx positive for Klebsiella pneumonia on 09/28/24
Stop IV fluids
Continue IV ceftriaxone
Blood culture negative till date
Urine culture covered Klebsiella pneumonia, sensitivities available
Antipyretics
Monitor temperature curve and white count
Potential discharge with PO Keflex
Essential hypertension
Continue blood pressure medication with hold parameter
IV Hydralazine as needed
History of constipation
Continue Colace as needed
History of migraine headaches
Continue eletriptan
Tylenol as needed
History of chronic back pain
Continue gabapentin
History of gout
Continue allopurinol
History of vitamin B12 deficiency
Continue cyanocobalamin
History of anxiety/depression
Continue SSRI
Hyperlipidemia
Continue pravastatin
DVT prophylaxis-Lovenox
CODE STATUS DNR
Regular diet
Anticipated Discharge: Within 24 hours
Subjective/Interval History
-
Date of Service: October 03, 2024
No overnight events
Objective Data
-
Labs:
Laboratory Results
10/03/24
05:57
WBC 5.9
Hgb 11.2 L
Hct 34.0 L
Plt Count 214 D
Sodium 144
Potassium 3.6
Chloride 105
Carbon Dioxide 29
BUN 16
Creatinine 0.9
Glucose 99
Calcium 9.2
Vital Signs:
Vital Signs
Temp Pulse Resp BP Pulse Ox
98.7 F 72 18 190/94 98
10/03/24 07:30 10/03/24 08:14 10/03/24 07:30 10/03/24 08:14 10/03/24 07:30
I&O
10/02/24 10/03/24 10/04/24
06:59 06:59 06:59
Intake Total 480 / 480 1080 / 1080
Balance 480 / 480 1080 / 1080
Review of Systems
-
All other systems: Reviewed and negative
Physical Exam
-
General: Comfortable
HEENT: Normocephalic and Atraumatic
Respiratory: Clear to Auscultation
Cardiac: Regular Rhythm and S1/S2
GI: Nondistended
Musculoskeletal: No Edema
Neuro: AO x 3
Psych: Anxious
Data Reviewed
-
Labs: Labs Reviewed by me and Discussed with Physician
[2024-10-03 09:48] VITALS: BP 144/79
--- NOTE | 2024-10-03 11:19 | W.PN.UPDATE ---
Update Note
Progress Note Update
I saw and evaluated the patient. I reviewed the resident�s note and agree with findings and plan as documented in the resident�s note.
No new complaints.
Gen: NAD, AAOx3.
Eyes: EOMI, PERRLA, no scleral icterus.
Neck: supple.
CV: remains RRR, +S1/S2, no m/r/g.
Resp: remains CTAB, no rales, wheezes, or rhonchi.
Abd: remains +BS, soft, NT, ND
Skin: No rashes.
Neuro: CN 2-12 intact, non-focal.
Psych: Normal mood and affect.
10/01/24 04:21 Urine Urine Culture - Final
Klebsiella pneumoniae
10/01/24 02:39 Blood/Venous Blood Culture - Preliminary
No Growth in 48 hours- Final report to follow
10/01/24 03:23 Nasal Swab Influenza Types A & B (ART) - Final
Negative for Influenza A & B, NAAT
Negative results must be combined with clinical observations
and patient history.
Nucleic Acid Amplification test (NAAT)performed on the
[employer] NOW platform.
Sepsis (POA) due to Klebsiella pneumonia UTI:
-UCx POS 09/28 and 10/01, BCxs NGTD
-s/p IVFs
-cont Rocephin
-leukocytosis has resolved
-c/s ID with recurrent UTIs and h/o C diff
Other problems:
Essential HTN: cont Cardizem, start Lisinopril 5mg daily
h/o constipation: Colace PRN
h/o migraine headaches: cont Relpax
h/o chronic back pain: cont gabapentin
h/o gout: cont allopurinol
h/o vitamin B12 deficiency: cont cyanocobalamin
h/o anxiety/depression: cont Lexapro
HLD: cont statin
DNR/Lovenox
[2024-10-03] MEDS: ANCEF 10 IV (13:35)
--- NOTE | 2024-10-03 13:55 | CON.ID ---
Consultation
-
Date/Time Consultation Requested: 10/03/24 11:26
Date/Time Consultation Performed: 10/03/24 14:16
Requesting Provider: Dr Galloway
Performing Provider: Dr Monaco
Reason for Consultation: Sepsis (POA) due to Klebsiella pneumonia UTI:
Chief Complaint / Past History
Chief Complaint
chills and fever
History of Present Illness
Ms Vallejo is an 83 year old female with history of Zurdo's s/p colectomy and later reanastomosis, gout who presented hre 10/01 for chills and confusion. She reports about 2 weeks of gross hematuria, no dysuria or flank pain. She saw her pcp
and was started on macrobid, after the first dose she noted nausea, headache and chills. No flank pain. She progressed to confusion and and EMS was called.
Has a history of C difficile 06/10/23.
Since arrival here her tmax is 100.6 orally in the ER - no further fevers, bp overall stable, HR 60s-70s, wbc initially 12.9 now 5.9, hgb 11.2, plt 214, L shift was present on arrival and resovled HD2, cr 0.9, lactic acid initially 3.2 now 2.0, UA
with 16-20 wbcs and few bacteria, covid ag negative, urine culture 10/01 100 K K pneumoniae, also note 09/28 urine culture with 100K K pneumoniae with similar resistance profile, a single blood culture set was sent on arrival no growth to date, she
was initially started on ceftriaxone 09/30 and received 3 days of this therapy without adverse effect, today she was switched to cefazolin. Note that she tolerated keflex 09/26/21 here inpatient without apparent adverse effect. ID is consulted for
assistance with management.
Past History
Additional Past Medical History:
1. Hypertension.
2. Hyperthyroidism.
3. Dyslipidemia.
4. Migraine headaches.
5. Neuropathy.
6. Right shoulder replacement.
7. Gout
8. Vaginal pessary placement.
Additional Past Surgical History:
Hysterectomy
Allergy History:
codeine [Codeine] Allergy (Verified 10/01/24 02:29)
vomiting,dizziness
hydromorphone [From Dilaudid] Allergy (Verified 10/01/24 02:29)
Unknown
morphine Allergy (Verified 10/01/24 02:29)
Nausea / Vomiting
oxycodone HCl [From Percocet] Allergy (Verified 10/01/24 02:29)
vomiting,dizziness
Penicillins Allergy (Verified 10/01/24 02:29)
50 yrs ago>rash,swelling of tongue
Medications Reviewed: Yes
Social History
Tobacco: Non-Smoker
Alcohol: Occasional
Drug: None
Family History
Family History: Not Pertinent
Review of Systems
Review of Systems
General: Fever
All systems: All other systems were reviewed and were negative
Vital Signs
Temp Pulse Resp BP Pulse Ox
98.7 F 67 18 144/79 98
10/03/24 07:30 10/03/24 09:48 10/03/24 07:30 10/03/24 09:48 10/03/24 07:30
Physical Exam
Physical Exam
Constitutional: No Acute Distress and Chronically Ill
Cardiovascular: Regular Rate and S1/S2; Negative Murmur or Rub
Pulmonary: Clear and Symmetric; Negative Wheezes, Rales or Rhonchi
Gastrointestinal: Soft, Non Tender, Non Distended and Normal Bowel Sounds
Skin: Warm and Dry; Negative Rash or Jaundice
Lab / Diagnostic Study Results
10/03/24 05:57
10/03/24 05:57
Abs Immat Gran (auto) 0.0 10^3/uL (0-0.05) 10/02/24 07:57
Absolute Neuts (auto) 5.1 10^3/uL (1.4-6.5) 10/02/24 07:57
Absolute Lymphs (auto) 0.9 10^3/uL (1.2-3.4) L 10/02/24 07:57
Absolute Monos (auto) 0.8 10^3/uL (0.1-0.6) H 10/02/24 07:57
Absolute Basos (auto) 0.0 10^3/uL (0-0.2) 10/02/24 07:57
Immature Gran % 0.3 % (0-0.5) 10/02/24 07:57
Neutrophils % 71.4 % (42.2-75.2) 10/02/24 07:57
Lymphocytes % 12.2 % (20.5-51.1) L 10/02/24 07:57
Monocytes % 11.7 % (1.7-9.3) H 10/02/24 07:57
Eosinophils % 4.1 % (0-6) 10/02/24 07:57
Basophils % 0.3 % (0-2) 10/02/24 07:57
Lactic Acid 2.0 mmol/L (0.7-2.0) 10/01/24 05:50
Ur Squamous Epith Cells 0-2 /LPF (Few) 10/01/24 04:21
Microbiology Results
Micro:
10/01/24 04:21 Urine Culture - Final
Urine 100K Klebsiella pneumoniae
10/01/24 02:39 Blood Culture - Preliminary
Blood/Venous No Growth in 48 hours- Final report to follow
10/01/24 03:23 Influenza Types A & B (ART) - Final
Nasal Swab Negative for Influenza A & B, NAAT
Negative results must be combined with clinical observations
and patient history.
Nucleic Acid Amplification test (NAAT)performed on the
[employer] platform.
Urine Culture Final 10/03/24-817
CC: 100,000 CFU/ML Klebsiella pneumoniae
Organism 1 Klebsiella pneumoniae
1. Klebsiella pneumoniae
M.I.C. RX
--------- ---
Amoxicillin/Potas. Clavulanate <=8/4 S
Ampicillin >16 R
Ampicillin/Sulbactam <=4/2 S
Aztreonam <=4 S
Cefazolin <=2 S
Ertapenem <=0.5 S
Ciprofloxacin <=0.25 S
Gentamicin <=2 S
Meropenem <=1 S
Nitrofurantoin-Urine Only <=32 S
Piperacillin/Tazobactam <=8 S
Tetracycline <=4 S
Tobramycin <=2 S
Trimethoprim/Sulfamethoxazole <=2/38 S
Assessment / Plan
UTI due to K Pneumoniae
H/o C difficile
H/o allergy to penicillin rash and tongue swelling, tolerates cephalosporins including aminocephalosporins
- urine culture 100K K pneumoniae
- single set of blood cultures without e/o bacteremia
- note history of C difficile over 1 year ago
- single UTI documented here in the last 1 year, I would not typically recommend prophylaxis in this setting. If there is no contraindication, maintaining good hydration is an excellent initial step. Counseled patient and .
- switch to keflex to complete a 7 day total course 09/30-10/06
[2024-10-03 15:04] VITALS: BP 155/82
[2024-10-03] MEDS: KEFLEX 500 MG PO ×2 (17:59→21:55)
[2024-10-03] MEDS: LOVENOX 40 MG SC (17:59)
[2024-10-03] MEDS: PRAVACHOL 20 MG PO (17:59)
[2024-10-03] MEDS: APRESOLINE 10 MG IV (20:06)
[2024-10-03] MEDS: TYLENOL 650 MG PO (20:12)
[2024-10-03] MEDS: ATIVAN 0.25 MG PO (21:55)
[2024-10-03 23:22] VITALS: BP 153/85
[2024-10-04] MEDS: TYLENOL 650 MG PO (03:29)
[2024-10-04 05:55] LABS: Hematocrit 35.6 % (37.0-47.0); Hemoglobin 11.8 g/dL (12.0-16.0); Mean Corp Hgb Conc. 33.1 g/dL (33.0-37.0); Mean Corpuscular Hgb 30.9 pg (27.0-31.0); Mean Corpuscular Volume 93.2 fL (81.0-99.0); Mean Platelet Volume 9.5 fL (7.4-10.4); Platelet Count 230 10^3/uL (130-400); Red Blood Cell Count 3.82 10^6/uL (4.20-5.40); Red Cell Dist. Width 13.9 % (11.5-14.5)
[2024-10-04 06:17] LABS: Blood Urea Nitrogen 21 mg/dl (7-17); Calcium 9.2 mg/dl (8.4-10.2); Carbon Dioxide 29 mmol/L (22-30); Chloride 104 mmol/L (98-107); Estimated Creatinine Clearance 42 ml/min; Glucose 101 mg/dl (70-99); Potassium 3.6 mmol/L (3.5-5.1); Sodium 142 mmol/L (135-145); eGFR > 60.00
[2024-10-04 07:25] VITALS: BP 144/81
--- NOTE | 2024-10-04 08:03 | W.PN.HOSP.TC ---
Today's Communication/Plan
-
Discharge plan today with keflex PO for 7 days total course
Hx of Cdiff infection 1 year ago--- no prophylaxis needed
Appreciate ID input.
Assessment / Plan
Assessment / Plan
Impression
UTI with sepsis
Essential hypertension
History of constipation
History of migraine headaches
Chronic back pain
History of gout
History of vitamin B12 deficiency
History of anxiety/depression
Hyperlipidemia
Anxiety
Plan
UTI with sepsis
Afebrile, leukocytosis resolved
Urine cx positive for Klebsiella pneumonia on 09/28/24
Stop IV fluids
Continue IV ceftriaxone
Blood culture negative till date
Urine culture covered Klebsiella pneumonia, sensitivities available
Antipyretics
Monitor temperature curve and white count
Discharge plan today with keflex PO for 7 days total course
Hx of Cdiff infection 1 year ago--- no prophylaxis needed
Appreciate ID input.
Essential hypertension
Continue blood pressure medication with hold parameter
IV Hydralazine as needed
History of constipation
Continue Colace as needed
History of migraine headaches
Continue eletriptan
Tylenol as needed
History of chronic back pain
Continue gabapentin
History of gout
Continue allopurinol
History of vitamin B12 deficiency
Continue cyanocobalamin
History of anxiety/depression
Continue SSRI
Hyperlipidemia
Continue pravastatin
Anxiety
Ativan 0.25 p.o. as needed at night
DVT prophylaxis-Lovenox
CODE STATUS DNR
Regular diet
Anticipated Discharge: Today
Subjective/Interval History
-
Date of Service: October 04, 2024
No overnight event
Objective Data
-
Labs:
Laboratory Results
10/04/24
05:33
WBC 5.0
Hgb 11.8 L
Hct 35.6 L
Plt Count 230
Sodium 142
Potassium 3.6
Chloride 104
Carbon Dioxide 29
BUN 21 H
Creatinine 0.9
Glucose 101 H
Calcium 9.2
Vital Signs:
Vital Signs
Temp Pulse Resp BP Pulse Ox
98.3 F 67 18 153/85 95
10/03/24 23:22 10/03/24 23:22 10/03/24 23:22 10/03/24 23:22 10/03/24 23:22
I&O
10/03/24 10/04/24 10/05/24
06:59 06:59 06:59
Intake Total 1080 / 1080 900 / 900
Balance 1080 / 1080 900 / 900
Review of Systems
-
All other systems: Reviewed and negative
Physical Exam
-
General: Comfortable
HEENT: Normocephalic and Atraumatic
Respiratory: Clear to Auscultation
Cardiac: Regular Rhythm and S1/S2
GI: Nondistended
Musculoskeletal: No Edema
Neuro: AO x 3
Psych: Anxious
Data Reviewed
-
Labs: Labs Reviewed by me and Discussed with Physician
--- NOTE | 2024-10-04 09:13 | W.PN.ID1 ---
Date of Service
Date of Service: October 04, 2024
Today's Communication
- c/w keflex to complete a 7 day total course 09/30-10/06 - stable for dc from ID perspective, follow up with PCP
Assessment / Plan
UTI due to K Pneumoniae
H/o C difficile
H/o allergy to penicillin rash and tongue swelling, tolerates cephalosporins including aminocephalosporins
- urine culture 100K K pneumoniae
- single set of blood cultures without e/o bacteremia
- note history of C difficile over 1 year ago
- single UTI documented here in the last 1 year, I would not typically recommend prophylaxis in this setting. If there is no contraindication, maintaining good hydration is an excellent initial step. Counseled patient and .
- c/w keflex to complete a 7 day total course 09/30-10/06 - stable for dc from ID perspective, follow up with PCP
Chief Complaint
-: UTI
Subjective / Review of Systems
afebrile
bp stable
no events overnight
no dysuria
worried above hypertension overnight - deferred to hospitalist
Vital Signs / Physical Exam
Vital Signs
Vital Signs
Temp Pulse Resp BP Pulse Ox
98.5 F 77 20 144/81 97
10/04/24 07:25 10/04/24 07:25 10/04/24 07:25 10/04/24 07:25 10/04/24 07:25
Physical Exam
Constitutional: No Acute Distress
Cardiovascular: Regular Rate and S1/S2; Negative Murmur or Rub
Pulmonary: Clear and Symmetric; Negative Wheezes or Rales
Gastrointestinal: Soft, Non Tender, Non Distended and Normal Bowel Sounds
Genito-Urinary: Negative Suprapubic Tenderness
Skin: Warm and Dry; Negative Rash or Jaundice
Objective Data
Lab Data
Lab Results
10/04/24 05:33
10/04/24 05:33
Estimated Creat Clear 42 ml/min 10/04/24 05:33
Lactic Acid 2.0 mmol/L (0.7-2.0) 10/01/24 05:50
Total Bilirubin 0.8 mg/dl (0.2-1.3) 10/01/24 02:39
AST 34 U/L (14-36) 10/01/24 02:39
ALT 22 U/L (0-35) 10/01/24 02:39
Alkaline Phosphatase 88 U/L (38-126) 10/01/24 02:39
Most recent labs reviewed.
Micro Results:
10/01/24 02:39 Blood Culture - Preliminary
Blood/Venous No Growth in 72 hours- Final report to follow
10/01/24 04:21 Urine Culture - Final
Urine Klebsiella pneumoniae
10/01/24 03:23 Influenza Types A & B (ART) - Final
Nasal Swab Negative for Influenza A & B, NAAT
Negative results must be combined with clinical observations
and patient history.
Nucleic Acid Amplification test (NAAT)performed on the
[employer] platform.
Care Review
Plan reviewed with: Physician (Dr Galloway and Dr Armendariz - recommendations)
[2024-10-04] MEDS: NEURONTIN 600 MG PO (09:25)
[2024-10-04] MEDS: LEXAPRO 5 MG PO (09:25)
[2024-10-04] MEDS: ZYLOPRIM 200 MG PO (09:25)
[2024-10-04] MEDS: CARDIZEM CD 120 MG PO (09:26)
[2024-10-04] MEDS: COLACE 100 MG PO (09:26)
[2024-10-04] MEDS: VITAMIN B-12 1000 MCG PO (09:26)
[2024-10-04] MEDS: VISBIOME 1 CAP PO (09:26)
[2024-10-04] MEDS: ZESTRIL 5 MG PO (09:26)
[2024-10-04] MEDS: KEFLEX 500 MG PO ×2 (09:26→12:49)
[2024-10-04] MEDS: MIRALAX PO (09:28)
--- NOTE | 2024-10-04 10:39 | W.PN.UPDATE ---
Update Note
Progress Note Update
I saw and evaluated the patient. I reviewed the resident�s note and agree with findings and plan as documented in the resident�s note.
No new complaints.
Gen: NAD, AAOx3.
Eyes: EOMI, PERRLA, no scleral icterus.
Neck: supple.
CV: Continues to remain RRR, +S1/S2, no m/r/g.
Resp: Continues to CTAB, no rales, wheezes, or rhonchi.
Abd: Continues to +BS, soft, NT, ND
Skin: No rashes.
Neuro: CN 2-12 intact, non-focal.
Psych: Normal mood and affect.
10/01/24 02:39 Blood/Venous Blood Culture - Preliminary
No Growth in 72 hours- Final report to follow
10/01/24 04:21 Urine Urine Culture - Final
Klebsiella pneumoniae
10/01/24 03:23 Nasal Swab Influenza Types A & B (ART) - Final
Negative for Influenza A & B, NAAT
Negative results must be combined with clinical observations
and patient history.
Nucleic Acid Amplification test (NAAT)performed on the
[employer] NOW platform.
Sepsis (POA) due to Klebsiella pneumonia UTI:
-UCx POS 09/28 and 10/01, BCxs NGTD
-s/p IVFs
-has been on Rocephin, d/c on Keflex through 10/06/24 as per ID
-leukocytosis has resolved
Other problems:
Essential HTN: cont Cardizem, increase Lisinopril to 10mg daily
h/o constipation: Colace PRN
h/o migraine headaches: cont Relpax
h/o chronic back pain: cont gabapentin
h/o gout: cont allopurinol
h/o vitamin B12 deficiency: cont cyanocobalamin
h/o anxiety/depression: cont Lexapro
HLD: cont statin
DNR/Lovenox
Total time spent on d/c = 31 min. This included today's physical exam, progress note, review of laboratory and diagnostic data, preparation of discharge documents and prescriptions, and discussions about the pt's hospital course and discharge plan
with the patient and other medical front desk coordinator involved in the patient's care.
--- NOTE | 2024-10-04 11:12 | W.DCSUMMARY ---
Discharge Summary
Discharge Data
Date of Admission: 10/01/24
Date of Discharge: 10/04/24
-
Pending Results: No
Hospital Course
Discharging Physician : Dr Rubens Galloway, Dr Víctor Armendariz
Disposition : Home
Primary care physician : Unknown
Principal Discharge diagnosis :
UTI with sepsis
Essential hypertension
History of anxiety/depression
Chronic Discharge diagnosis :
History of constipation
History of migraine headaches
Chronic back pain
History of gout
History of vitamin B12 deficiency
Hyperlipidemia
Hospital Course : 83-year-old female presented with fever, chills, confusion. She has history of Cdiff a year ago. Urine culture recovered Klebsiella pneumonia on 09/28 and 10/01. Patient was started on IV ceftriaxone and then transition to IV
cefazolin. ID was consulted and the recommended Keflex oral 4 times daily for a total of 7-day course. No growth on blood cultures till date. At the day of discharge patient is hemodynamically stable, leukocytosis has resolved, no prophylaxis
needed for C. difficile at this time. Advised patient to continue all of the home medications. Advised to follow-up with primary care physician.
Important imaging findings : None
Procedure findings : None
Discharge Plan
-
Patient Disposition: Home (Routine Discharge)
Discharge Diagnosis/Procedures: UTI with sepsis
Essential hypertension
History of constipation
History of migraine headaches
Chronic back pain
History of gout
History of vitamin B12 deficiency
History of anxiety/depression
Hyperlipidemia
Anxiety
Condition: Good
Diet: Regular
Activity: No restrictions
Driving Restrictions: As prior to admission
Bathing Restrictions: None
Referrals:
UNKNOWN - PT DOES,NOT KNOW [Family Provider] -
Additional Discharge Medication Instructions: Start taking Keflex 500 one tablet four times a day with food to complete the course of antibiotics 09/30/24 - 10/06/24
Maintain good hydration.
Prescriptions:
New
cephalexin 500 mg capsule
500 mg PO QID 3 Days Qty: 12 0RF
Continued
cyanocobalamin (vitamin B-12) 1,000 mcg Tablet
1,000 mcg PO DAILY
pravastatin 20 mg Tablet
20 mg PO QPM
gabapentin 300 mg Capsule
600 mg PO BID
docusate sodium [Colace] 100 mg Capsule
100 mg PO HSPRN PRN (Reason: constipation)
escitalopram oxalate 5 mg Tablet
5 mg PO DAILY
allopurinol 200 mg Tablet
200 mg PO DAILY
polyethylene glycol 3350 [Miralax] 17 gram Powder In Packet
8.5 g PO DAILY
guar gum Packet
1 tbsp PO DAILY
eletriptan [Relpax] 40 mg Tablet
0 mg PO .COMPLEX
Rx Instructions:
take 1 tab at onset of headache; if no relief, may repeat 1 tab after at least 2 hrs; max = 2 tabs/24 hrs
Visbiome 112.5 billion cell Capsule
1 cap PO DAILY
calcium carbonate 500 mg calcium (1,250 mg) Tablet
500 mg PO DAILY
diltiazem HCl 120 mg Capsule,Extended Release 24hr
120 mg PO DAILY
Discharge Orders:
Discharge Patient (As Directed); Ordered 10/04/24
Ordered By: Rubens Galloway
Discharge Date and Time
Print Language: INDONESIAN
--- NOTE | 2024-10-04 12:16 | CM ---
MD entered order for discharge
Spoke with patient she said she was ready for discharge today.
IMM reviewed she agrees with dc.
Natty will drive her home today.
Offered VN she declined need.
PLAN Home no needs
[2024-10-04 13:55] VITALS: BP 142/72
== END 2024-10-04 14:18 | disposition home or self-care (01) | DRG 872 ==
LOC: 4 EAST ACU 06:35
PROVIDERS: Student in an Organized Health Care Education/Training Program; ADMITTING PHYSICIAN Internal Medicine; ATTENDING PHYSICIAN Internal Medicine; EMERGENCY PHYSICIAN Emergency Medicine; OTHER PHYSICIAN Student in an Organized Health Care Education/Training Program
DX: A41.9 Sepsis, unspecified organism (principal); N39.0 Urinary tract infection, site not specified; E87.20 Acidosis, unspecified; I10 Essential (primary) hypertension; F32.A Depression, unspecified; F41.9 Anxiety disorder, unspecified; G89.29 Other chronic pain; E78.00 Pure hypercholesterolemia, unspecified; Z88.0 Allergy status to penicillin; E53.8 Deficiency of other specified B group vitamins; Z96.611 Presence of right artificial shoulder joint; Z88.5 Allergy status to narcotic agent; M10.9 Gout, unspecified; B96.1 Klebsiella pneumoniae [K. pneumoniae] as the cause of diseases classified elsewhere; E05.90 Thyrotoxicosis, unspecified without thyrotoxic crisis or storm; K59.00 Constipation, unspecified; G43.909 Migraine, unspecified, not intractable, without status migrainosus; Z66 Do not resuscitate; Z87.440 Personal history of urinary (tract) infections; Z90.49 Acquired absence of other specified parts of digestive tract; Z90.710 Acquired absence of both cervix and uterus; G62.9 Polyneuropathy, unspecified; R31.0 Gross hematuria
CPT/HCPCS: 80048; 80053; 81003; 81015; 83605; 83735; 85025; 85027; 87040; 87077; 87086; 87186; 87502; 87811; 96361; 96374; 99285

== ENCOUNTER 2024-10-12 07:15 | Emergency (ER) | payer MEDICARE, BC, SELFPAY ==
[2024-10-12 07:17] VITALS: BP 141/93
--- NOTE | 2024-10-12 08:38 | ED.GENMED ---
History of Present Illness
General
Chief Complaint: Urinary Symptoms
Source: patient and spouse
Exam Limitations: none
Time Seen by Provider: 10/12/24 07:35
History of Present Illness
History of Present Illness:
83-year-old female started with some perineal itching and burning. This started 2 days ago. Had been on Keflex for UTI. Tried topical therapy without relief. Started with urinary frequency last evening. No dysuria. No fever chills flank or new
back pain. Recent history of sepsis secondary to UTI
Past History
Past History
ED Past Medical History: HTN, Hypercholesterolemia and Other (colitis, bleeding diverticuli)
ED Past Surgical History: Other
Social History
Tobacco: Non-smoker
Alcohol: Occasional
Drug: None
Personal:
Living: with family
Review of Systems
Review of Systems
All Other Systems: Not applicable
Constitutional: Denies fever or chills
ABD/GI: Reports no symptoms
Phy Exam
Physical Exam
Physical Exam:
GENERAL: Alert and oriented in no apparent distress
EYE: Orbits normal.
NECK: Supple
CARDIAC: Regular rate and rhythm without any obvious murmurs.
LUNGS: Clear breath sounds,normal
ABDOMEN: Soft, mild diffuse lower abdominal tenderness. No rebound or guarding no mass or hernia. Multiple old scars. No CVA tenderness
: Perineal area grossly normal. Labia majora with mild irritation.
NEUROLOGICAL: Alert and oriented , grossly non-focal
SKIN: Warm and dry, no rash or lesion, no discoloration, skin intact.
MUSCULOSKELETAL: No edema,no deformity.Good color
PSYCH: Normal and appropriate interaction.
Course
Orders/Labs/Results
Orders:
Orders
10/12/24 08:29
CT Abd/pel Without Iv Or Oral Urgent
Comment:
Reason For Exam: Recurrent UTI/sepsis
IV Insert/Care/Rem.- Treatment PRN
Straight cath- Treatment ONCE
0.9% Sodium Chloride 500 ml [Nss] 500 ml IV BOLUS
10/12/24 08:33
Basic Metabolic Panel Urgent
Complete Blood Count/With Diff Urgent
Urinalysis Reflex To Culture Urgent
Date Specimen was Collected: 10/12/24
Time Specimen was Collected: 08:12
Urine Microscopic Reflex Cult Urgent
Urine Culture Urgent
LUX Source: U
Specimen Description:
Date Specimen was Collected: 10/12/24
Time Specimen was Collected: 08:12
10/12/24 10:22
Fluconazole [Diflucan] 150 mg PO NOW STA
10/12/24 10:25
EKG [Electrocardiogram (*1)] Urgent
Reason for Study: QTc Monitoring
EKG- Treatment ONCE
Abnormal Lab Results
10/12/24
08:33
RBC 4.10 L 10^6/uL
(4.20-5.40)
MCHC 32.7 L g/dL
(33.0-37.0)
Absolute Lymphs (auto) 0.9 L 10^3/uL
(1.2-3.4)
Absolute Monos (auto) 0.7 H 10^3/uL
(0.1-0.6)
Immature Gran % 0.7 H %
(0-0.5)
Lymphocytes % 15.1 L %
(20.5-51.1)
Monocytes % 11.3 H %
(1.7-9.3)
BUN 18 H mg/dl
(7-17)
Glucose 108 H mg/dl
(70-99)
Leukocyte Esterase Rfl 1+ A
(Negative)
Urine Bacteria (Reflex) Few A
(Negative)
Urine Albumin (Reflex) 2+ A
(Neg - Trace)
10/12/24 08:33
10/12/24 08:33
Vital Signs
Initial and Last Documented VS:
Initial Vital Signs
Temp Pulse Resp BP Pulse Ox
98.9 F 72 18 141/93 98
10/12/24 07:17 10/12/24 07:17 10/12/24 07:17 10/12/24 07:17 10/12/24 07:17
Last Documented Vital Signs
Temp Pulse Resp BP Pulse Ox
98.9 F 55 16 159/78 95
10/12/24 07:17 10/12/24 09:23 10/12/24 09:23 10/12/24 09:23 10/12/24 09:23
MDM/Problems Addressed
Differential Diagnosis Includes:
Patient describing some fungal like symptoms but also describing some UTI-like symptoms. With recent sepsis we will evaluate for any anatomical urologic issue.
*Radiology
Radiology exam reviewed: radiology read reviewed (No acute findings on CT)
*Pulse Oximetry
Patient hypoxic: no
*EKG
Interpreted by ED Provider?: Yes
Interpretation: abnormal
Comparison EKG: changes noted
Heart Rate: 56
Rate: bradycardiac
Rhythm: sinus
[place]: normal axis
Interval: normal QT interval
QRS Pattern: normal QRS
Ischemia: non-specific ST changes
*Critical Care Note
Total Time (30-74mins, 75-104mins- exclusive of procedures): Not Applicable
Data Reviewed
Review of Other/Old Records Reveals: Labs, Records, Testing, Discharge Summary and Other (Microbiology)
Update Note
Update Note:
Patient with some urinary frequency although states she is urinating a lot when she does go. Some vaginal irritation. No obvious UTI. +1 leukocyte Estrace however 0-2 white cells and few bacteria. Will await culture. 1 dose of Diflucan topical
Lotrimin and follow-up
Interaction between Diflucan and citalopram. Mostly QT interval. Reviewed with pharmacy. Do not feel other interaction is significant based on 1 dose. QT interval within normal limits
ED Attending Note
-
Portions of this chart may have been created with voice recognition software.� Occasional wrong word or��sound alike� substitutions may have occurred due to the inherent limitations of voice recognition software.
Discharge Plan
Departure
Patient Disposition: Home (Routine Discharge)
Date of Disposition: 10/12/24
Time of Disposition: 10:21
Patient with high blood pressure during this ER visit?: Yes
Discharge Problem:
Urinary frequency, Vaginal irritation
Instructions: BLOOD PRESSURE
Prescriptions:
No Action
cyanocobalamin (vitamin B-12) 1,000 mcg Tablet
1,000 mcg PO DAILY
pravastatin 20 mg Tablet
20 mg PO QPM
gabapentin 300 mg Capsule
600 mg PO BID
docusate sodium [Colace] 100 mg Capsule
100 mg PO HSPRN PRN (Reason: constipation)
escitalopram oxalate 5 mg Tablet
5 mg PO DAILY
allopurinol 200 mg Tablet
200 mg PO DAILY
polyethylene glycol 3350 [Miralax] 17 gram Powder In Packet
8.5 g PO DAILY
guar gum Packet
1 tbsp PO DAILY
eletriptan [Relpax] 40 mg Tablet
0 mg PO .COMPLEX
Rx Instructions:
take 1 tab at onset of headache; if no relief, may repeat 1 tab after at least 2 hrs; max = 2 tabs/24 hrs
Visbiome 112.5 billion cell Capsule
1 cap PO DAILY
calcium carbonate 500 mg calcium (1,250 mg) Tablet
500 mg PO DAILY
diltiazem HCl 120 mg Capsule,Extended Release 24hr
120 mg PO DAILY
cephalexin 500 mg capsule
500 mg PO QID 3 Days Qty: 12 0RF
Referrals:
Phillip Smith DO [Family Provider] - Follow up in 2-3 days
Activity Restrictions/Additional Instructions:
You can continue the steroid cream
Would also add Lotrimin cream
Close follow-up with your primary physician
Return with increased urinary symptoms flank pain fever chills nausea vomiting or any other concerning symptoms
Interventions
Interventions:
*Risk Screen - Suicide Last Done: 10/12/24 07:17
*General Assessment Last Done: 10/12/24 07:17
*Neglect/Abuse Screening Last Done: 10/12/24 07:17
*ED- Fall Risk Assessment Last Done: 10/12/24 08:02
*ED COVID-19 Vaccine History Last Done: 10/12/24 08:02
*Nursing Disposition Last Done: 10/12/24 10:53
ED-Female Genitourinary Assessment Last Done: 10/12/24 08:03
Discharge Date and Time
Discharge Date/Time: 10/12/24 10:54
Print Language: CHADIAN
[2024-10-12] MEDS: NSS 500 IV (08:40)
[2024-10-12 08:49] LABS: % Basophils 0.3 % (0-2); % Eosinophils 2.3 % (0-6); % Immature Granulocytes 0.7 % (0-0.5); % Lymphocytes 15.1 % (20.5-51.1); % Monocytes 11.3 % (1.7-9.3); % Neutrophils 70.3 % (42.2-75.2); Absolute Eosinophils 0.1 10^3/uL (0-0.7); Absolute Lymphocytes 0.9 10^3/uL (1.2-3.4); Absolute Monocytes 0.7 10^3/uL (0.1-0.6); Absolute Neutrophils 4.2 10^3/uL (1.4-6.5); Hematocrit 38.5 % (37.0-47.0); Hemoglobin 12.6 g/dL (12.0-16.0); Mean Corp Hgb Conc. 32.7 g/dL (33.0-37.0); Mean Corpuscular Hgb 30.7 pg (27.0-31.0); Mean Corpuscular Volume 93.9 fL (81.0-99.0); Mean Platelet Volume 9.3 fL (7.4-10.4); Nucleated Red Blood Cells % 0 %; Platelet Count 304 10^3/uL (130-400); Urine Albumin 2+ (Neg - Trace); Urine Bilirubin Negative (Negative); Urine Character Clear (Clear); Urine Color Yellow; Urine Glucose Negative (Negative); Urine Ketone Negative (Negative); Urine Leukocyte 1+ (Negative); Urine Nitrite Negative (Negative); Urine Occult Blood Negative (Negative); Urine Specific Gravity 1.015 (<1.030); Urine Urobilinogen Negative (Neg - 1+)
[2024-10-12 09:02] LABS: Urine Mucus Many
[2024-10-12 09:03] LABS: Blood Urea Nitrogen 18 mg/dl (7-17); Calcium 9.5 mg/dl (8.4-10.2); Carbon Dioxide 28 mmol/L (22-30); Chloride 103 mmol/L (98-107); Glucose 108 mg/dl (70-99); Sodium 142 mmol/L (135-145); Urine Bacteria Few (Negative); Urine Red Blood Cell 0-2 /HPF (0-2); Urine White Cell 0-2 /HPF (0-5); eGFR 55.55
[2024-10-12 09:23] VITALS: BP 159/78
[2024-10-12 10:10] VITALS: BMI 28.1
[2024-10-12] MEDS: DIFLUCAN 150 MG PO (10:45)
== END 2024-10-12 10:54 | disposition home or self-care (01) ==
LOC: EMR 07:15
PROVIDERS: EMERGENCY PHYSICIAN Emergency Medicine; FAMILY PHYSICIAN Internal Medicine
DX: R35.0 Frequency of micturition (principal); N89.8 Other specified noninflammatory disorders of vagina; E78.00 Pure hypercholesterolemia, unspecified; I10 Essential (primary) hypertension; Z87.440 Personal history of urinary (tract) infections
CPT/HCPCS: 99284; 96360; 96361; 74176; 80048; 81003; 81015; 85025; 87086; 93005

== ENCOUNTER 2024-11-25 06:48 | Inpatient (IN) | payer MEDICARE, BC, SELFPAY ==
[2024-11-25] VITALS (15 sets, daily range): BP systolic 104–183; BP diastolic 60–89; BMI 28.9; BMI 28.1
[2024-11-25] MEDS: ZOFRAN 4 MG IV (01:51)
[2024-11-25 01:56] LABS: % Basophils 0.2 % (0-2); % Eosinophils 0.8 % (0-6); % Immature Granulocytes 0.5 % (0-0.5); % Lymphocytes 6.5 % (20.5-51.1); % Monocytes 2.5 % (1.7-9.3); % Neutrophils 89.5 % (42.2-75.2); Absolute Eosinophils 0.1 10^3/uL (0-0.7); Absolute Lymphocytes 0.4 10^3/uL (1.2-3.4); Absolute Monocytes 0.2 10^3/uL (0.1-0.6); Absolute Neutrophils 5.5 10^3/uL (1.4-6.5); Hemoglobin 12.9 g/dL (12.0-16.0); Mean Corp Hgb Conc. 33.9 g/dL (33.0-37.0); Mean Corpuscular Hgb 31.3 pg (27.0-31.0); Mean Corpuscular Volume 92.2 fL (81.0-99.0); Mean Platelet Volume 8.8 fL (7.4-10.4); Nucleated Red Blood Cells % 0 %; Platelet Count 219 10^3/uL (130-400); Red Blood Cell Count 4.12 10^6/uL (4.20-5.40); White Blood Cell Count 6.1 10^3/uL (4.8-10.8)
[2024-11-25 02:04] LABS: Lactic Acid 1.3 mmol/L (0.7-2.0)
[2024-11-25 02:06] LABS: ALT (SGPT) 27 U/L (0-35); AST (SGOT) 30 U/L (14-36); Albumin 4.9 g/dl (3.5-5.0); Alkaline Phosphatase 84 U/L (38-126); Blood Urea Nitrogen 27 mg/dl (7-17); Calcium 9.8 mg/dl (8.4-10.2); Carbon Dioxide 23 mmol/L (22-30); Chloride 101 mmol/L (98-107); Estimated Creatinine Clearance 26 ml/min; Glucose 143 mg/dl (70-99); Potassium 4.5 mmol/L (3.5-5.1); Sodium 133 mmol/L (135-145); Total Bilirubin 0.7 mg/dl (0.2-1.3); Total Protein 7.9 g/dl (6.3-8.2); eGFR 36.87
[2024-11-25] MEDS: NSS 500 IV (02:27)
[2024-11-25 03:19] LABS: Urine Albumin 2+ (Neg - Trace); Urine Bilirubin Negative (Negative); Urine Character Cloudy (Clear); Urine Glucose Negative (Negative); Urine Ketone Negative (Negative); Urine Leukocyte 3+ (Negative); Urine Nitrite Negative (Negative); Urine Occult Blood 4+ (Negative); Urine Urobilinogen Negative (Neg - 1+)
[2024-11-25 03:20] LABS: Urine Color Straw
[2024-11-25 03:48] LABS: Urine Amorphous Seen; Urine Mucus Many; Urine Squamous Cell >30 /LPF (Few)
[2024-11-25 03:49] LABS: Urine Bacteria Many (Negative)
[2024-11-25 03:52] LABS: Urine Red Blood Cell >100 /HPF (0-2); Urine Urothelial Cell >30 /LPF (FEW); Urine White Cell >100 /HPF (0-5)
[2024-11-25] MEDS: NSS 1000 IV (05:17)
[2024-11-25] MEDS: MONUROL 3 GM PO (05:17)
--- NOTE | 2024-11-25 05:46 | ED.GENMED ---
History of Present Illness
General
Chief Complaint: Urinary Symptoms
Source: patient
Time Seen by Provider: 11/25/24 01:03
History of Present Illness
History of Present Illness:
Pleasant 84-year-old female presents to the emergency department with increased weakness. Was recently diagnosed with a UTI and just finished a 7-day course of antibiotics. She states that she feels weaker now than she did just last week. Patient
was started on Macrobid and started feeling shortness of breath and anxious. She did report some hyperventilation. states that she has been complaining of bodyaches and headache. She was hospitalized for urosepsis in the past and is
wondering if she is uroseptic again. states that he is unable to care for her at home given her increased weakness. She does have a history of neuropathy but states that this is different.
Past History
Past History
ED Past Medical History: HTN, Hypercholesterolemia and Other (colitis, bleeding diverticuli)
ED Past Surgical History: Other
Social History
Tobacco: Non-smoker
Alcohol: Occasional
Drug: None
Personal:
Living: with family
Review of Systems
Review of Systems
Allergies reviewed?: Yes
Other source history: family
All Other Systems: ROS reviewed and negative except as documented in HPI and ROS
Constitutional: Reports fatigue
EENT: Reports no symptoms
Respiratory: Reports no symptoms
Cardiac: Reports no symptoms
ABD/GI: Reports no symptoms
: Reports dysuria, frequency and urgency
Musculoskeletal: Reports no symptoms
Skin: Reports no symptoms
Neurological: Reports no symptoms
Endocrine: Reports no symptoms
Hematologic/Lymphatic: Reports no symptoms
Psychiatric: Reports anxiety
Phy Exam
General Physical Exam
General Presentation: mild distress
General age: appears older than age
General Skin: warm and dry
General Habitus: debilitated, elderly and frail
General Mental: alert, anxious and tearful
General Hydration: appears well hydrated
ENT Exam
ENT Exam: EOMI, pharynx normal, neck supple and normocephalic
Eye Exam
Eye Exam: PERRL, cornea clear and conjunctiva normal
Cardiovascular Exam
Cardiovascular Exam: regular rate/rhythm, no edema, no murmur and normal peripheral pulses
Pulmonary Exam
Pulmonary Exam: no stridor
Cough: no cough
Gastrointestinal Exam
Gastrointestinal Exam: normal bowel sounds, non tender, soft, no organomegaly, no pulsatile mass and non distended
Neurological Exam
Neurological Exam: alert, oriented x3, no motor deficits and speech normal
Musculoskeletal Exam
Musculoskeletal Exam: full ROM and no edema
Skin Exam
Skin Exam: normal color, warm/dry, no rash and no petechia
Psychiatric Exam
Psychiatric Exam: normal mood/affect
Course
Orders/Labs/Results
Orders:
Orders
11/25/24 01:44
Complete Blood Count/With Diff Urgent
Comprehensive Metabolic Panel Urgent
Lactic Acid Urgent
11/25/24 01:48
Ondansetron Injectable [Zofran] 4 mg .ROUTE .[facility]
11/25/24 01:50
Ondansetron Injectable [Zofran] 4 mg IV NOW STA
11/25/24 02:00
0.9% Sodium Chloride 500 ml [Nss] 500 ml IV BOLUS
11/25/24 02:58
Urinalysis Reflex To Culture Urgent
Date Specimen was Collected: 11/25/24
Time Specimen was Collected: 02:58
Urine Microscopic Reflex Cult Urgent
Urine Culture Urgent
LUX Source: U
Specimen Description:
Date Specimen was Collected: 11/25/24
Time Specimen was Collected: 02:58
11/25/24 05:00
0.9% Sodium Chloride 1000 ml [Nss] 1,000 ml IV BOLUS
Fosfomycin [Monurol] 3 gm PO ONCE ONE
Abnormal Lab Results
11/25/24 11/25/24
01:44 02:58
RBC 4.12 L 10^6/uL
(4.20-5.40)
MCH 31.3 H pg
(27.0-31.0)
Absolute Lymphs (auto) 0.4 L 10^3/uL
(1.2-3.4)
Neutrophils % 89.5 H %
(42.2-75.2)
Lymphocytes % 6.5 L %
(20.5-51.1)
Sodium 133 L mmol/L
(135-145)
BUN 27 H mg/dl
(7-17)
Creatinine 1.4 H mg/dL
(0.6-1.0)
Glucose 143 H mg/dl
(70-99)
Ur Occult Blood Reflex 4+ A
(Negative)
Leukocyte Esterase Rfl 3+ A
(Negative)
Urine RBC >100 A /HPF
(0-2)
Urine WBC (Reflex) >100 A /HPF
(0-5)
Urine Bacteria (Reflex) Many A
(Negative)
Urine Albumin (Reflex) 2+ A
(Neg - Trace)
11/25/24 01:44
11/25/24 01:44
Vital Signs
Initial and Last Documented VS:
Initial Vital Signs
Temp Pulse Resp BP Pulse Ox
98.3 F 90 26 180/75 95
11/25/24 00:54 11/25/24 00:54 11/25/24 00:54 11/25/24 00:54 11/25/24 00:54
Last Documented Vital Signs
Temp Pulse Resp BP Pulse Ox
99.7 F 90 26 153/75 82
11/25/24 05:06 11/25/24 00:54 11/25/24 00:54 11/25/24 05:00 11/25/24 05:00
*Radiology
Radiology exam reviewed: all reviewed NAD by ED Provider
*Pulse Oximetry
SaO2: 82
Oxygen Mode of Delivery: Room air
Patient hypoxic: yes
*Critical Care Note
Total Time (30-74mins, 75-104mins- exclusive of procedures): Not Applicable
ED Attending Note
-
Portions of this chart may have been created with voice recognition software.� Occasional wrong word or��sound alike� substitutions may have occurred due to the inherent limitations of voice recognition software.
Discharge Plan
Departure
Patient Disposition: Admit
Date of Disposition: 11/25/24
Time of Disposition: 06:01
Presentation/result/management discussed w/ accepting MD/DO: Hospitalist
Consults for patient: Occupational Therapy
Condition: Good
Discharge Problem:
Weakness, Acute UTI
Prescriptions:
No Action
cyanocobalamin (vitamin B-12) 1,000 mcg Tablet
1,000 mcg PO DAILY
pravastatin 20 mg Tablet
20 mg PO QPM
gabapentin 300 mg Capsule
600 mg PO BID
docusate sodium [Colace] 100 mg Capsule
100 mg PO HSPRN PRN (Reason: constipation)
escitalopram oxalate 5 mg Tablet
5 mg PO DAILY
allopurinol 200 mg Tablet
200 mg PO DAILY
polyethylene glycol 3350 [Miralax] 17 gram Powder In Packet
8.5 g PO DAILY
guar gum Packet
1 tbsp PO DAILY
eletriptan [Relpax] 40 mg Tablet
0 mg PO .COMPLEX
Rx Instructions:
take 1 tab at onset of headache; if no relief, may repeat 1 tab after at least 2 hrs; max = 2 tabs/24 hrs
Visbiome 112.5 billion cell Capsule
1 cap PO DAILY
calcium carbonate 500 mg calcium (1,250 mg) Tablet
500 mg PO DAILY
diltiazem HCl 120 mg Capsule,Extended Release 24hr
120 mg PO DAILY
cephalexin 500 mg capsule
500 mg PO QID 3 Days Qty: 12 0RF
Referrals:
Phillip Smith DO [Family Provider, Internal Medicine]
Interventions
Interventions:
*Risk Screen - Suicide Last Done: 11/25/24 00:54
*General Assessment Last Done: 11/25/24 00:54
*Neglect/Abuse Screening Last Done: 11/25/24 04:43
*ED- Fall Risk Assessment Last Done: 11/25/24 00:54
*ED COVID-19 Vaccine History Last Done: 11/25/24 00:54
ED-Female Genitourinary Assessment Last Done: 11/25/24 01:39
ED-Psychological Assessment Last Done: 11/25/24 01:39
Discharge Date and Time
Print Language: SERBIAN
--- NOTE | 2024-11-25 06:15 | HPS.HSE ---
Family Physician
-
Family Physician: Phillip Smith
Chief Complaint
-
Weakness, lethargy
History of Present Illness
This is a 84-year-old female with past medical history of hypertension, hyperlipidemia, depression/anxiety who was recently admitted for urinary tract infection about 2 months ago presents again to the emergency department with complaints of a
urinary tract infection with failure of oral therapy at home.
After completing the course of treatment of cephalexin on her last admission the patient said that she was symptom-free up until about 1 week ago. Then she states she started 'not feeling well'. Patient and spouse reports that she does not
typically have visual symptoms such as dysuria frequency urgency incontinence or flank pain. She has nausea and abdominal discomfort. She went to get checked for urinary tract infection and was found to have UTI on UA and was started on Bactrim.
She reportedly take 7 days of Bactrim but she developed significant abdominal discomfort secondary to Bactrim. She states that she is unable to tolerate p.o. due to nausea but she did not vomit the pills. She says she completed 7 days and after
about 6 days she was feeling better but on the seventh day she started to feel sick again. She had a repeat UA at the same urgent care clinic which remained positive and then she was placed on nitrofurantoin. She started taking nitrofurantoin but
immediately developed significant nausea and vomiting and was unable to tolerate the medication. She denied any fevers at home but reports that she has been having chills. Spouse reports decreased p.o. intake weakness and worsening fatigue and
lethargy. He states he is unable to care for at home in this current state.
In the emergency department the patient had a temp of 99.7, blood pressure was 150/77 with a pulse of 90 and she was satting 96% on room air.
There was no leukocytosis, hemoglobin and platelet count were normal. Electrolytes were mostly normal except for a sodium of 133. BUN and creatinine are increased 2.7 and 1.4 respectively from a baseline of 10 and 1.0. Glucose was normal.
UA today remains positive for bacteria, leukocyte esterase and pyuria but with numerous epithelial cells.
CT of the abdomen pelvis was done 1 month ago for pelvic discomfort, urinary frequency and she had no abnormal abnormalities of the urinary collecting system, no stones, hydronephrosis, cysts, scarring etc.
Medical History
Past Medical History
Past Medical History: Reports Other
Additional Past Medical History:
HTN, Hypercholesterolemia and Other (colitis, bleeding diverticuli)
Past Surgical History: Reports Other
Additional Past Surgical History:
emergent laparotomy for bowel obstruction with extended right colectomy ileostomy and had a scheduled robotic ileostomy closure on 05/06.
Social History
Tobacco: Non-smoker
Alcohol: Occasional
Personal:
Living: With Family
Family History
Family History: Not pertinent
Allergies / Home Medications
Allergies reflects when Allergies were last updated in [employer].
Home Medications with original date entered in [employer]
Allergy/Medication List:
Allergies
Allergy/AdvReac Type Severity Reaction Status Date / Time
codeine [Codeine] Allergy vomiting,di Verified 10/01/24 02:29
zziness
hydromorphone [From Dilaudid] Allergy Unknown Verified 10/01/24 02:29
morphine Allergy Nausea / Verified 10/01/24 02:29
Vomiting
oxycodone HCl [From Percocet] Allergy vomiting,di Verified 10/01/24 02:29
zziness
Penicillins Allergy 50 yrs Verified 10/01/24 02:29
ago>rash,swelling
of tongue
Home Medications
calcium 600 mg (as carbonate)-vitamin D3 5 mcg (200 unit) tablet 1 tab PO BID Supplement 01/02/23
diltiazem HCl 240 mg capsule,24 hr,extended release 240 mg PO DAILY #0 caps 01/30/23
Bifidobacterium infantis 4 mg capsule (Align (B.infantis)) 4 mg PO DAILY Probiotic 05/25/23
cholecalciferol (vitamin D3) 50 mcg (2,000 unit) capsule (Vitamin D3) 50 mcg PO DAILY Supplement 05/25/23
potassium chloride 20 mEq tablet,extended release 20 meq PO BID Electrolyte Repletion 05/25/23
acetaminophen 325 mg tablet (Tylenol) 325 mg PO Q6HPRN PRN mild pain 06/04/23
calcium polycarbophil 625 mg tablet (FiberCon) 625 mg PO HS Supplement 06/04/23
cyanocobalamin (vitamin B-12) 1,000 mcg tablet 1,000 mcg PO DAILY Supplement 06/04/23
pravastatin 20 mg tablet 20 mg PO QPM High Cholesterol 06/04/23
docusate sodium 100 mg capsule (Colace) 100 mg PO HS Constipation 08/06/23
gabapentin 300 mg capsule 600 mg PO BID pain 08/06/23
polyethylene glycol 3350 17 gram oral powder packet (HealthyLax) 17 g PO DAILY #100 ea 08/15/23
sennosides 8.6 mg tablet (Senna Laxative) 17.2 mg (2 x 8.6 mg) PO HS PRN Constipation #30 tabs 08/15/23
ondansetron 4 mg disintegrating tablet 4 mg PO TID PRN nausea and vomiting #10 tabs 09/18/23
Review of Systems
-
Constitutional: Reports No Symptoms
EENT: Reports No Symptoms
Respiratory: Reports No Symptoms
Cardiac: Reports No Symptoms
Abdomen/GI: Reports Nausea and Vomiting
: Reports No Symptoms
Musculoskeletal: Reports No Symptoms
Skin: Reports No Symptoms
Neurological: Reports No Symptoms
Endocrine: Reports No Symptoms
Hematologic/Lymphatic: Reports No Symptoms
Psych: Reports No Symptoms
Physical Exam
Vital Signs
Vital Signs
Temp Pulse Resp BP Pulse Ox
99.7 F 90 26 153/75 82
11/25/24 05:06 11/25/24 00:54 11/25/24 00:54 11/25/24 05:00 11/25/24 05:55
Physical Exam
General: Chills and Other (appears fatigued and lethargic but responds appropriately); No Fever
HEENT: NormoCephalic, Anicteric, Moist mucous membranes, PERRLA and Neck Nontender
Respiratory: Clear
Cardiac: S1/S2 and Regular Rhythm
Breast: Deferred by me
GI: Soft, Non Distended and Normal Bowel Sounds
Rectal: Deferred by Provider
Genito-urinary: Deferred by me
Musculoskeletal: No Clubbing, No Cyanosis and No Edema
Skin: Warm
Neuro: AO x 3 and Nonfocal/grossly intact; No Slurred Speech or Facial Droop
Hematologic/Lymphatic: No Lymphadenopathy
Psych: Calm
Laboratory Results
-
11/25/24 01:44
11/25/24 01:44
Laboratory Results
Lactic Acid 1.3 mmol/L (0.7-2.0) 11/25/24 01:44
Total Bilirubin 0.7 mg/dl (0.2-1.3) 11/25/24 01:44
AST 30 U/L (14-36) 11/25/24 01:44
ALT 27 U/L (0-35) 11/25/24 01:44
Alkaline Phosphatase 84 U/L (38-126) 11/25/24 01:44
Data Reviewed
-
Lab Data: Labs Reviewed by me
Old Records: Reviewed
Impression/Plan
-
IMPRESSION:
83 y.o with h/o HTN, pror bowel resection, prior UTIs w/ recent admission for urosepsis presents to ED with lethargy/fatigue/weakness and ongoing UTI despite 7 days of bactrim. She was started on Macrobid yesterday but would not continue due to
nasuea/vomiting. Spouse concerned about her weakness and unable to care for her at home. She has positive U/A again though with possible contamination. She has a recent CT scan without any abnormalities of the kidneys or renal collecting system.
She has no signs of sepsis here but has a mild JOSE.
PLAN:
1. UTI - failure of outpatient abx
- admit to med/surg
- urine culture sent
- got a dose of fosfomycin in ED, she has not vomited this dose, hold off further abx
- continue bp meds with hold parameters
- given recent CT scan, did not repeat imaging
- in the absence of anatomic findings she likely can benefit from prophylaxis such as hippurate and urology eval
- was seen by ID last time and would benefit from repeat eval, ID consulted.
- PT consult
DVT PPX - lovenox sq
Code status - DNR
[2024-11-25] MEDS: FLUSH (NSS) 3 FLUSH IV (06:37)
[2024-11-25] MEDS: TYLENOL 650 MG PO ×3 (07:35→21:20)
--- NOTE | 2024-11-25 09:01 | W.PN.HOSP.TC ---
Addendum entered and electronically signed by Tiago Bentley MD 11/25/24 09:29:
Check Hg A1c
Original Note:
Today's Communication/Plan
-
See plan.
Assessment / Plan
Assessment / Plan
Impression:
Urinary tract infection, recurrent.
Acute kidney injury.
Other conditions:
Essential hypertension.
Chronic back pain
History of C. difficile
Gout.
Dyslipidemia
Anxiety
Plan:
84 years years old female with history of frequent urinary tract infections (recent hospitalization with Klebsiella pneumonia UTI 09/30) presents with fever and chills.
Patient usually does not have dysuria other than diffuse abdominal and flank discomfort.
She had been initiated on oral antibiotics as outpatient (Bactrim), although given persistent symptoms presented to the emergency room
Recent CT abdomen/pelvis showed no evidence of collecting system abnormalities.
Febrile at 102 upon presentation
Nontoxic-appearing, hemodynamically stable.
Urinalysis upon presentation consistent with infection
Urine culture pending.
Blood culture pending
Status post dose of fosfomycin given in ED on 11/25
ID consult pending
May benefit from outpatient urology follow-up on urodynamic studies. Has scheduled appointment for December 06
Acute kidney injury.
Reported being on Bactrim.
Low oral intake.
Bladder scan.
Continue isotonic solution follow BMP
Essential hypertension
Continue Cardizem with caution for hypotension
Neuropathy, chronic back pain on gabapentin.
History of C. difficile infection
Continue probiotic
Anticipated Discharge: 24 - 48 hours
Subjective/Interval History
-
Date of Service: November 25, 2024
Objective Data
-
Labs:
Laboratory Results
11/25/24
01:44
WBC 6.1
Hgb 12.9
Hct 38.0
Plt Count 219
Sodium 133 L
Potassium 4.5
Chloride 101
Carbon Dioxide 23
BUN 27 H
Creatinine 1.4 H
Glucose 143 H
Calcium 9.8
Total Bilirubin 0.7
AST 30
ALT 27
Alkaline Phosphatase 84
Vital Signs:
Vital Signs
Temp Pulse Resp BP Pulse Ox
102 F H 90 26 116/68 89
11/25/24 07:19 11/25/24 00:54 11/25/24 00:54 11/25/24 08:00 11/25/24 08:55
Physical Exam
-
General: Well Developed and No Apparent Distress
HEENT: Normocephalic, Atraumatic and Moist Mucous Membranes
Respiratory: Clear to Auscultation
Cardiac: Regular Rhythm and S1/S2; Negative Murmur, Rub or Gallop
GI: Soft, Nontender, Nondistended and Normal Bowel Sounds; Negative Organomegaly
Rectal: Deferred by Provider
Musculoskeletal: No Clubbing, No Cyanosis and No Edema
Skin: Negative Rash
Neuro: Nonfocal/Grossly Intact
[2024-11-25] MEDS: LR 1000 IV ×2 (11:02→21:06)
[2024-11-25] MEDS: CARDIZEM CD 120 MG PO (11:02)
[2024-11-25] MEDS: LEXAPRO 5 MG PO (11:02)
[2024-11-25] MEDS: NEURONTIN 300 MG PO ×2 (11:02→19:57)
[2024-11-25] MEDS: VISBIOME 1 CAP PO (11:02)
[2024-11-25] MEDS: MIRALAX PO (11:16)
--- NOTE | 2024-11-25 12:02 | CM ---
CM reviewed chart and met with pt bedside in ED. Lives with , 1 story home, no BELÉN.
Independent with ADLs, personal care and ambulation at baseline. No DME in home.
Does have history with [facility] and [facility], [place]
PCP: Phillip Smith
Pharmacy: [facility]
Discharge plan: Anticipate home pending medical work up.
[2024-11-25 12:20] LABS: Glycohemoglobin (HgbA1c) 5.5 % (4.0-5.6)
--- NOTE | 2024-11-25 12:50 | PTCARENOTE ---
Received patient from ED. Patient ambulated from stretcher to bed with min assist x1. Patient c/o headache, Tylenol given. Call pino in reach, patient instructed to call for staff before getting OOB. Patient verbalized understanding.
[2024-11-25] MEDS: ZYLOPRIM 100 MG PO (13:21)
--- NOTE | 2024-11-25 16:09 | CON.ID ---
Consultation
-
Date/Time Consultation Requested: November 25, 2024 1010
Date/Time Consultation Performed: November 25, 2024 1610
Requesting Provider: Dr. Maribel Alcantara
Performing Provider: Dr. Elyse Claros
Reason for Consultation: UTI failed abx
Chief Complaint / Past History
Chief Complaint
chills and fever
History of Present Illness
Ms Vallejo is an 84 year old female with history of Zurdo's s/p colectomy and later reanastomosis, UTI's who presented to the ED early this morning complaining of fever, chills and groin pain. She was last hospitalized late September with
Klebsiella UTI treated with cephalexin. She reports since then she has been having recurrence of UTI and has had 3 episodes within a month. Symptoms consisted of fever and groin/suprapubic discomfort. She had a course of Bactrim which did not
fully resolve the symptoms until the last day, 7-day. She had nausea from the Bactrim. A week later she again had urinary symptoms and was placed on nitrofurantoin. After completion nitrofurantoin the next day he complains of nausea vomiting,
chills and suprapubic discomfort. She came to the ER early this morning temperature 102. She received a dose of fosfomycin. She feels somewhat improved. She states she does drink plenty of fluids. She has good hygiene. UA with 3+ leukocyte
Estrace more than 100 white blood cells and more than 100 red blood cells. Urine culture pending.
Past History
Additional Past Medical History:
Hypertension.
Hyperthyroidism.
Dyslipidemia.
Migraine headaches.
Neuropathy.
Anxiety/depression
Gout
C. diff 06/10/23
[place] s/p extended right colectomy ileostomy and had a scheduled robotic ileostomy closure
Right shoulder replacement.
Vaginal pessary placement.
Hysterectomy
Allergy History:
codeine (Codeine) Allergy (Verified 11/25/24 00:53)
vomiting,dizziness
hydromorphone (From Dilaudid) Allergy (Verified 11/25/24 00:53)
Unknown
morphine Allergy (Verified 11/25/24 00:53)
Nausea / Vomiting
oxycodone HCl (From Percocet) Allergy (Verified 11/25/24 00:53)
vomiting,dizziness
Penicillins Allergy (Verified 11/25/24 00:53)
50 yrs ago>rash,swelling of tongue
Medications Reviewed: Yes
Current Antibiotics:
Fosfomycin x 1
Social History
Tobacco: Non-Smoker
Alcohol: Occasional
Drug: None
Family History
Family History: Not Pertinent
Review of Systems
Review of Systems
General: Fever and Chills
HEENT: Negative Sinus Problems or Headache
Cardiovascular: Negative Chest Pain or Dyspnea
Respiratory: Negative Dyspnea or Cough
Gasteroenterology: Nausea and Vomiting; Negative Diarrhea
Genital / Urological: Negative Flank Pain
Endocrine: Weakness
All systems: All other systems were reviewed and were negative
Vital Signs
Temp Pulse Resp BP Pulse Ox
98.4 F 78 18 132/72 93
11/25/24 12:58 11/25/24 12:58 11/25/24 12:58 11/25/24 12:58 11/25/24 12:58
Selected Entries
11/25/24
07:19
Temp 102 F H
Physical Exam
Physical Exam
Constitutional: No Acute Distress
Eyes: No Conjunctival Hemorrhage and Sclera Anicteric
Cardiovascular: Regular Rate and S1/S2
Pulmonary: Clear
Gastrointestinal: Soft, Non Tender and Non Distended
Genito-Urinary: Negative CVA Tenderness
Extremities: Negative Edema
Neurological: AO x 3
Lab / Diagnostic Study Results
11/25/24 01:44
11/25/24 01:44
Abs Immat Gran (auto) 0.0 10^3/uL (0-0.05) 11/25/24 01:44
Absolute Neuts (auto) 5.5 10^3/uL (1.4-6.5) 11/25/24 01:44
Absolute Lymphs (auto) 0.4 10^3/uL (1.2-3.4) L 11/25/24 01:44
Absolute Monos (auto) 0.2 10^3/uL (0.1-0.6) 11/25/24 01:44
Absolute Basos (auto) 0.0 10^3/uL (0-0.2) 11/25/24 01:44
Immature Gran % 0.5 % (0-0.5) 11/25/24 01:44
Neutrophils % 89.5 % (42.2-75.2) H 11/25/24 01:44
Lymphocytes % 6.5 % (20.5-51.1) L 11/25/24 01:44
Monocytes % 2.5 % (1.7-9.3) 11/25/24 01:44
Eosinophils % 0.8 % (0-6) 11/25/24 01:44
Basophils % 0.2 % (0-2) 11/25/24 01:44
Lactic Acid 1.3 mmol/L (0.7-2.0) 11/25/24 01:44
Ur Squamous Epith Cells >30 /LPF (Few) 11/25/24 02:58
Microbiology Results
Micro:
11/25/24 02:58 Urine Culture - Pending
Urine
Assessment / Plan
# Recurrent symptomatic UTI
# Fever
- 5/7 CT a/p: no hydro
- Multiple prior Ucx's Klebsiella, euceda-sensitive except for ampicillin
- Await Ucx
- Start ceftriaxone.
- trend temps.
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
Hypertension.
Hyperthyroidism.
Dyslipidemia.
Migraine headaches.
Neuropathy.
Anxiety/depression
Gout
C. diff 06/10/23
Zurdo s/p extended right colectomy ileostomy and had a scheduled robotic ileostomy closure
Right shoulder replacement.
Vaginal pessary placement.
Hysterectomy
[2024-11-25] MEDS: HEPARIN 5000 UNITS SC ×2 (17:03→23:32)
[2024-11-25] MEDS: FLUSH (NSS) 1 FLUSH IV ×2 (17:25→17:32)
[2024-11-25] MEDS: STERILE WATER FOR INJECTION 10 ML IV (17:26)
[2024-11-25] MEDS: ROCEPHIN 1000 MG IV (17:26)
[2024-11-25] MEDS: PRAVACHOL 20 MG PO (18:19)
[2024-11-26] MEDS: TYLENOL 650 MG PO (05:20)
[2024-11-26] MEDS: ZYLOPRIM 100 MG PO (07:47)
[2024-11-26] MEDS: NEURONTIN 300 MG PO ×2 (07:47→20:04)
[2024-11-26] MEDS: CARDIZEM CD 120 MG PO (07:48)
[2024-11-26] MEDS: LEXAPRO 5 MG PO (07:48)
[2024-11-26] MEDS: VITAMIN B-12 1000 MCG PO (07:49)
[2024-11-26] MEDS: HEPARIN 5000 UNITS SC ×3 (07:49→23:27)
[2024-11-26] MEDS: VISBIOME 1 CAP PO (07:49)
[2024-11-26] MEDS: MIRALAX 8.5 GRAMS PO (07:56)
[2024-11-26 07:58] VITALS: BP 129/71
[2024-11-26 09:09] LABS: Blood Urea Nitrogen 17 mg/dl (7-17); Calcium 8.8 mg/dl (8.4-10.2); Carbon Dioxide 26 mmol/L (22-30); Chloride 107 mmol/L (98-107); Estimated Creatinine Clearance 40 ml/min; Glucose 90 mg/dl (70-99); Potassium 4.4 mmol/L (3.5-5.1); Sodium 136 mmol/L (135-145); eGFR > 60.00
--- NOTE | 2024-11-26 11:41 | W.PN.HOSP.TC ---
Addendum entered and electronically signed by Eugenio Ruth MD 11/26/24 14:39:
[id number]
Addendum entered and electronically signed by Eugenio Ruth MD 11/26/24 14:32:
Cultures Negative
Can dc abx
No evidence of UTI. Urine symptoms possibly from vaginal atrophy? Will see Urologist 12/06.
More than 30 minutes spent in discharge including
Final examination of the patient
Summarizing hospital stay
Instructions for continuing care to all relevant caregivers
Preparation of discharge records, prescriptions, and referral forms
Total time spent (in minutes): 36
Original Note:
Today's Communication/Plan
-
Cont abx
f/u cultures
IVF PRn
Assessment / Plan
Assessment / Plan
Impression:
Urinary tract infection, recurrent.
Acute kidney injury.
Other conditions:
Essential hypertension.
Chronic back pain
History of C. difficile
Gout.
Dyslipidemia
Anxiety
Plan:
84 years years old female with history of frequent urinary tract infections (recent hospitalization with Klebsiella pneumonia UTI 09/30) presents with fever and chills.
Patient usually does not have dysuria other than diffuse abdominal and flank discomfort.
She had been initiated on oral antibiotics as outpatient (Bactrim), although given persistent symptoms presented to the emergency room
Recent CT abdomen/pelvis showed no evidence of collecting system abnormalities.
Febrile at 102 upon presentation
Nontoxic-appearing, hemodynamically stable.
UTI
Continue Ceftriaxone
Urine culture pending.
Status post dose of fosfomycin given in ED on 11/25
ID consult pending
Outpatient urology follow-up on urodynamic studies. Has scheduled appointment for December 06
Acute kidney injury, resolved
Reported being on Bactrim.
Low oral intake.
Bladder scan.
IVF PRN
Follow BMP
Essential hypertension
Continue Cardizem with caution for hypotension
Hyponatremia
resolved
Neuropathy, chronic back pain on gabapentin.
History of C. difficile infection
Continue probiotic
Anticipated Discharge: 24 - 48 hours
Subjective/Interval History
-
Date of Service: November 26, 2024
Patient feels better
Objective Data
-
Labs:
Laboratory Results
11/26/24
07:41
Sodium 136
Potassium 4.4
Chloride 107
Carbon Dioxide 26
BUN 17
Creatinine 0.9
Glucose 90
Calcium 8.8
Vital Signs:
Vital Signs
Temp Pulse Resp BP Pulse Ox
97.9 F 67 17 129/71 94
11/26/24 07:58 11/26/24 07:58 11/26/24 07:58 11/26/24 07:58 11/26/24 10:54
I&O
11/25/24 11/26/24 11/27/24
06:59 06:59 06:59
Intake Total 1100 / 1100
Balance 1100 / 1100
Review of Systems
-
History Source: Patient
All other systems: Not reviewed unless documented
Physical Exam
-
General: Well Developed and No Apparent Distress
HEENT: Normocephalic, Atraumatic and Moist Mucous Membranes
Respiratory: Clear to Auscultation
Cardiac: Regular Rhythm and S1/S2; Negative Murmur, Rub or Gallop
GI: Soft, Nontender, Nondistended and Normal Bowel Sounds; Negative Organomegaly
Rectal: Deferred by Provider
Musculoskeletal: No Clubbing, No Cyanosis and No Edema
Skin: Negative Rash
Neuro: Nonfocal/Grossly Intact
Data Reviewed
-
Labs: Labs Reviewed by me
--- NOTE | 2024-11-26 14:05 | W.PN.ID1 ---
Date of Service
Date of Service: November 26, 2024
Today's Communication
DC abx.
Can dc home from ID standpoint.
Assessment / Plan
# Fever x 1 resolved
# Urine symptoms - resolved
- 10/12 CT a/p: no hydro
- Reviewed outpatient labs.
11/17/24 Ucx 100K E. coli (pansensitive), treated with 7 days of Bactrim.
Day after completion of Bactrim, returned to UC 11/24 due to lower abd cramping. Dipstick +. 11/24 Ucx NO GROWTH. Prescribed nitrofurantoin and after 1 dose of nitrofurantoin developed N/V, weakness, fever.
- 11/25 UA here >30 sq (contaminated specimen); Ucx 70K mixed abilio- contaminants.
- s/p fosfomycin in ED.
- No evidence of UTI. Urine symptoms possibly from vaginal atrophy? Will see Urologist 12/06.
Per daughter, pt has IBS and tends to have intermittent abd cramping/back pain which pt may have attributed to UTI sxs.
- N/V, abd cramping, fever x 1 - suspect reaction to either Bactrim or nitrofurantoin.
- DC ceftriaxone.
Discussed with daughter at bedside who agrees with plan.
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
Hypertension.
Hyperthyroidism.
Dyslipidemia.
Migraine headaches.
Neuropathy.
Anxiety/depression
Gout
C. diff 06/10/23
Zurdo s/p extended right colectomy ileostomy and had a scheduled robotic ileostomy closure
Right shoulder replacement.
Vaginal pessary placement.
Hysterectomy
Chief Complaint
-: Fever
Subjective / Review of Systems
Daughter at bedside.
Pt feels well today. No urine sxs. No N/V.
Vital Signs / Physical Exam
Vital Signs
Vital Signs
Temp Pulse Resp BP Pulse Ox
97.9 F 67 17 129/71 94
11/26/24 07:58 11/26/24 07:58 11/26/24 07:58 11/26/24 07:58 11/26/24 10:54
Physical Exam
Constitutional: No Acute Distress and Comfortable
Pulmonary: Clear
Gastrointestinal: Soft, Non Tender, Non Distended and Normal Bowel Sounds
Genito-Urinary: Negative CVA Tenderness
Extremities: Negative Edema
Neurological: AO x 3
Objective Data
Lab Data
Lab Results
11/25/24 01:44
11/26/24 07:41
Estimated Creat Clear 40 ml/min 11/26/24 07:41
Lactic Acid 1.3 mmol/L (0.7-2.0) 11/25/24 01:44
Total Bilirubin 0.7 mg/dl (0.2-1.3) 11/25/24 01:44
AST 30 U/L (14-36) 11/25/24 01:44
ALT 27 U/L (0-35) 11/25/24 01:44
Alkaline Phosphatase 84 U/L (38-126) 11/25/24 01:44
Most recent labs reviewed.
Micro Results:
11/25/24 02:58 Urine Culture - Final
Urine
Care Review
Plan reviewed with: Physician (Dr. Ruth)
--- NOTE | 2024-11-26 14:30 | W.DS.TRANS ---
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
-
Discharge Instructions:
Discharge Diagnosis/Procedures No evidence of UTI. Urine symptoms possibly
from vaginal atrophy? Will see Urologist 12/06.
JOSE
Diet Low Fat,Low Cholesterol
Blood Work cbc and bmp in 5 days with pcp
Instructions:
Stand-Alone Forms:
Changes to Home Medications: No
Discharge Medications:
DC Medications w/original date entered in [employer]
cyanocobalamin (vitamin B-12) 1,000 mcg tablet 1,000 mcg PO DAILYPRN PRN Supplement 06/04/23
pravastatin 20 mg tablet 20 mg PO QPM High Cholesterol 06/04/23
docusate sodium 100 mg capsule (Colace) 100 mg PO HS constipation 08/06/23
gabapentin 300 mg capsule 600 mg PO BID pain 08/06/23
Lactobac no.2-Bifidobac no.1-S. thermo 112.5 billion cell capsule (Visbiome) 1 cap PO BID probiotic 10/01/24
calcium carbonate 500 mg PO DAILY Supplement 10/01/24
escitalopram oxalate 5 mg tablet 5 mg PO DAILY depression/anxiety 10/01/24
guar gum 1 tbsp PO HS Supplement 10/01/24
polyethylene glycol 3350 17 gram oral powder packet (Miralax) 8.5 g PO DAILY Constipation 10/01/24
allopurinol 100 mg tablet 200 mg PO DAILY Gout 11/25/24
diltiazem HCl 240 mg capsule,extended release 24 hr 240 mg PO DAILY Arrhythmia 11/25/24
eletriptan 40 mg PO BIDPRN PRN migraines 11/26/24
Home Medication Changes
na
Pending Results: No
[2024-11-26 15:00] VITALS: BP 175/89
--- NOTE | 2024-11-26 15:17 | CM ---
Addendum entered by Cary Haas 11/27/24 12:42:
Patient medically cleared for discharge to home with no additional skilled services. Daughter will transport home.
Addendum entered by Cary Haas 11/26/24 16:13:
Discharge deferred until tomorrow 11/27/24.
Original Note:
Patient has been medically cleared for discharge to home with no additional skilled services. will transport home.
--- NOTE | 2024-11-26 15:27 | PTCARENOTE ---
MD DC'd abx for this pt and put in DC order, notified this RN that he is not okay with his going home today. MD called pt multiple times to discuss DC information, beligerantly disagreeing. in communication with this RN, pt
to be staying overnight to regain more strength before DC'd home. No abx order, per MD there is no need for them. No new orders at this time.
[2024-11-26] MEDS: FLUSH (NSS) IV ×2 (16:37)
--- NOTE | 2024-11-26 16:55 | PTCARENOTE ---
Pt in tears over husbands interaction with MD, pt expressing she feels ad and embarrassed at her husbands reaction. Pt states her BP is always high when she is crying, does not want to do anything for high BP at this time, no new orders.
[2024-11-26] MEDS: PRAVACHOL 20 MG PO (17:23)
[2024-11-26] MEDS: COLACE 100 MG PO (17:28)
[2024-11-26 23:48] VITALS: BP 147/85
[2024-11-27 06:18] LABS: Hematocrit 36.7 % (37.0-47.0); Hemoglobin 12.1 g/dL (12.0-16.0); Mean Corpuscular Hgb 30.5 pg (27.0-31.0); Mean Corpuscular Volume 92.4 fL (81.0-99.0); Mean Platelet Volume 8.7 fL (7.4-10.4); Platelet Count 259 10^3/uL (130-400); Red Blood Cell Count 3.97 10^6/uL (4.20-5.40); White Blood Cell Count 4.6 10^3/uL (4.8-10.8)
[2024-11-27 06:48] LABS: ALT (SGPT) 23 U/L (0-35); AST (SGOT) 26 U/L (14-36); Albumin 4.2 g/dl (3.5-5.0); Alkaline Phosphatase 73 U/L (38-126); Blood Urea Nitrogen 14 mg/dl (7-17); Calcium 9.3 mg/dl (8.4-10.2); Carbon Dioxide 27 mmol/L (22-30); Chloride 104 mmol/L (98-107); Estimated Creatinine Clearance 45 ml/min; Glucose 93 mg/dl (70-99); Potassium 4.1 mmol/L (3.5-5.1); Sodium 138 mmol/L (135-145); Total Bilirubin 0.4 mg/dl (0.2-1.3); Total Protein 6.8 g/dl (6.3-8.2); eGFR > 60.00
[2024-11-27 07:00] VITALS: BP 184/89
[2024-11-27] MEDS: NEURONTIN 300 MG PO (07:41)
[2024-11-27] MEDS: LEXAPRO 5 MG PO (07:41)
[2024-11-27] MEDS: VISBIOME 1 CAP PO (07:42)
[2024-11-27] MEDS: VITAMIN B-12 1000 MCG PO (07:42)
[2024-11-27] MEDS: CARDIZEM CD 120 MG PO ×2 (07:42→10:33)
[2024-11-27] MEDS: ZYLOPRIM 100 MG PO (07:42)
[2024-11-27] MEDS: HEPARIN 5000 UNITS SC (07:45)
[2024-11-27] MEDS: MIRALAX 8.5 GRAMS PO (07:45)
[2024-11-27] MEDS: TYLENOL 650 MG PO (07:48)
--- NOTE | 2024-11-27 09:08 | W.PN.HOSP.TC ---
Addendum entered and electronically signed by Eugenio Ruth MD 11/27/24 14:19:
[id number]
Original Note:
Today's Communication/Plan
-
F/u Urology and PCP outpatient
f/u bmp in 3-5 days
Assessment / Plan
Assessment / Plan
Impression:
Urinary tract infection, recurrent.
Acute kidney injury.
Other conditions:
Essential hypertension.
Chronic back pain
History of C. difficile
Gout.
Dyslipidemia
Anxiety
Plan:
84 years years old female with history of frequent urinary tract infections (recent hospitalization with Klebsiella pneumonia UTI 09/30) presents with fever and chills.
Patient usually does not have dysuria other than diffuse abdominal and flank discomfort.
She had been initiated on oral antibiotics as outpatient (Bactrim), although given persistent symptoms presented to the emergency room
Recent CT abdomen/pelvis showed no evidence of collecting system abnormalities.
Febrile at 102 upon presentation
Nontoxic-appearing, hemodynamically stable.
Vaginal Discomfort
-Cultures Negative
-Can dc abx
-No evidence of UTI. Urine symptoms possibly from vaginal atrophy? Will see Urologist 12/06.
Status post dose of fosfomycin given in ED on 11/25
ID consult
Outpatient urology follow-up on urodynamic studies. Has scheduled appointment for December 06
Acute kidney injury, resolved
Reported being on Bactrim.
Low oral intake.
Bladder scan.
IVF PRN
Follow BMP
Essential hypertension
Continue Cardizem with caution for hypotension
Hyponatremia
resolved
Neuropathy, chronic back pain on gabapentin.
History of C. difficile infection
Continue probiotic
More than 30 minutes spent in discharge including
Final examination of the patient
Summarizing hospital stay
Instructions for continuing care to all relevant caregivers
Preparation of discharge records, prescriptions, and referral forms
Total time spent (in minutes): 36
Anticipated Discharge: Today
Subjective/Interval History
-
Date of Service: November 27, 2024
No events overnight, patient's refused the patient to go home yesterday despite clear communication
Objective Data
-
Labs:
Laboratory Results
11/27/24
05:38
WBC 4.6 L
Hgb 12.1
Hct 36.7 L
Plt Count 259
Sodium 138
Potassium 4.1
Chloride 104
Carbon Dioxide 27
BUN 14
Creatinine 0.8
Glucose 93
Calcium 9.3
Total Bilirubin 0.4
AST 26
ALT 23
Alkaline Phosphatase 73
Vital Signs:
Vital Signs
Temp Pulse Resp BP Pulse Ox
97.8 F 67 16 184/89 95
11/27/24 07:00 11/27/24 07:00 11/27/24 07:00 11/27/24 07:00 11/27/24 07:00
I&O
11/26/24 11/27/24 11/28/24
06:59 06:59 06:59
Intake Total 1100 / 1100 980 / 980
Balance 1100 / 1100 980 / 980
Review of Systems
-
History Source: Patient
All other systems: Not reviewed unless documented
Physical Exam
-
General: Well Developed and No Apparent Distress
HEENT: Normocephalic, Atraumatic and Moist Mucous Membranes
Respiratory: Clear to Auscultation
Cardiac: Regular Rhythm and S1/S2; Negative Murmur, Rub or Gallop
GI: Soft, Nontender, Nondistended and Normal Bowel Sounds; Negative Organomegaly
Rectal: Deferred by Provider
Musculoskeletal: No Clubbing, No Cyanosis and No Edema
Skin: Negative Rash
Neuro: Nonfocal/Grossly Intact
--- NOTE | 2024-11-27 12:12 | W.DS.TRANS ---
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
-
Discharge Instructions:
Discharge Diagnosis/Procedures No evidence of UTI. Urine symptoms possibly
from vaginal atrophy? Will see Urologist 12/06.
JOSE
Diet Low Fat,Low Cholesterol
Blood Work cbc and bmp in 5 days with pcp
Instructions:
Stand-Alone Forms:
Changes to Home Medications: No
Discharge Medications:
DC Medications w/original date entered in [employer]
cyanocobalamin (vitamin B-12) 1,000 mcg tablet 1,000 mcg PO DAILYPRN PRN Supplement 06/04/23
pravastatin 20 mg tablet 20 mg PO QPM High Cholesterol 06/04/23
docusate sodium 100 mg capsule (Colace) 100 mg PO HS constipation 08/06/23
gabapentin 300 mg capsule 600 mg PO BID pain 08/06/23
Lactobac no.2-Bifidobac no.1-S. thermo 112.5 billion cell capsule (Visbiome) 1 cap PO BID probiotic 10/01/24
calcium carbonate 500 mg PO DAILY Supplement 10/01/24
escitalopram oxalate 5 mg tablet 5 mg PO DAILY depression/anxiety 10/01/24
guar gum 1 tbsp PO HS Supplement 10/01/24
polyethylene glycol 3350 17 gram oral powder packet (Miralax) 8.5 g PO DAILY Constipation 10/01/24
allopurinol 100 mg tablet 200 mg PO DAILY Gout 11/25/24
diltiazem HCl 240 mg capsule,extended release 24 hr 240 mg PO DAILY Arrhythmia 11/25/24
eletriptan 40 mg PO BIDPRN PRN migraines 11/26/24
Home Medication Changes
na
Pending Results: No
== END 2024-11-27 13:32 | disposition home or self-care (01) | DRG 760 ==
LOC: 2 NORTH 06:48
PROVIDERS: Internal Medicine; ADMITTING PHYSICIAN Internal Medicine; ATTENDING PHYSICIAN Internal Medicine; CONSULT PHYSICIAN Internal Medicine Infectious Disease; EMERGENCY PHYSICIAN Student in an Organized Health Care Education/Training Program; FAMILY PHYSICIAN Internal Medicine
DX: N95.2 Postmenopausal atrophic vaginitis (principal); E87.1 Hypo-osmolality and hyponatremia; N17.9 Acute kidney failure, unspecified; G62.9 Polyneuropathy, unspecified; E78.00 Pure hypercholesterolemia, unspecified; I10 Essential (primary) hypertension; K52.9 Noninfective gastroenteritis and colitis, unspecified; F41.9 Anxiety disorder, unspecified; G89.29 Other chronic pain; M54.9 Dorsalgia, unspecified; R54 Age-related physical debility; E05.90 Thyrotoxicosis, unspecified without thyrotoxic crisis or storm; G43.909 Migraine, unspecified, not intractable, without status migrainosus; M10.9 Gout, unspecified; F32.A Depression, unspecified; Z66 Do not resuscitate; Z96.611 Presence of right artificial shoulder joint; Z88.5 Allergy status to narcotic agent; Z88.0 Allergy status to penicillin; Z87.440 Personal history of urinary (tract) infections; Z90.710 Acquired absence of both cervix and uterus; Z90.49 Acquired absence of other specified parts of digestive tract
CPT/HCPCS: 80048; 80053; 81003; 81015; 83036; 83605; 85025; 85027; 87086; 96361; 96374; 99285

== ENCOUNTER 2024-11-28 01:33 | Emergency (ER) | payer MEDICARE, BC, SELFPAY ==
[2024-11-28] VITALS (8 sets, daily range): BP systolic 164–194; BP diastolic 89–122
[2024-11-28 02:19] LABS: % Basophils 0.2 % (0-2); % Eosinophils 3.3 % (0-6); % Immature Granulocytes 0.6 % (0-0.5); % Lymphocytes 25.8 % (20.5-51.1); % Monocytes 14.6 % (1.7-9.3); % Neutrophils 55.5 % (42.2-75.2); Absolute Eosinophils 0.2 10^3/uL (0-0.7); Absolute Lymphocytes 1.3 10^3/uL (1.2-3.4); Absolute Monocytes 0.7 10^3/uL (0.1-0.6); Absolute Neutrophils 2.7 10^3/uL (1.4-6.5); Hematocrit 36.2 % (37.0-47.0); Hemoglobin 12.5 g/dL (12.0-16.0); Mean Corp Hgb Conc. 34.5 g/dL (33.0-37.0); Mean Corpuscular Hgb 31.2 pg (27.0-31.0); Mean Corpuscular Volume 90.3 fL (81.0-99.0); Mean Platelet Volume 8.4 fL (7.4-10.4); Nucleated Red Blood Cells % 0 %; Platelet Count 279 10^3/uL (130-400); Red Blood Cell Count 4.01 10^6/uL (4.20-5.40); Red Cell Dist. Width 13.5 % (11.5-14.5); White Blood Cell Count 4.9 10^3/uL (4.8-10.8)
[2024-11-28 02:22] LABS: Urine Albumin 1+ (Neg - Trace); Urine Bilirubin Negative (Negative); Urine Character Clear (Clear); Urine Color Yellow; Urine Glucose Negative (Negative); Urine Ketone 1+ (Negative); Urine Leukocyte Negative (Negative); Urine Nitrite Negative (Negative); Urine Occult Blood Negative (Negative); Urine Urobilinogen Negative (Neg - 1+)
[2024-11-28 02:37] LABS: ALT (SGPT) 23 U/L (0-35); AST (SGOT) 27 U/L (14-36); Albumin 4.4 g/dl (3.5-5.0); Alkaline Phosphatase 62 U/L (38-126); Blood Urea Nitrogen 13 mg/dl (7-17); Calcium 9.3 mg/dl (8.4-10.2); Carbon Dioxide 25 mmol/L (22-30); Chloride 99 mmol/L (98-107); Glucose 113 mg/dl (70-99); Potassium 4.2 mmol/L (3.5-5.1); Sodium 132 mmol/L (135-145); Total Bilirubin 0.7 mg/dl (0.2-1.3); Total Protein 7.2 g/dl (6.3-8.2); eGFR > 60.00
[2024-11-28 03:18] LABS: Urine Amorphous Seen; Urine Squamous Cell 0-2 /LPF (Few)
[2024-11-28] MEDS: NSS 1000 IV (03:18)
[2024-11-28 03:19] LABS: Urine Bacteria Few (Negative); Urine Red Blood Cell 0-2 /HPF (0-2); Urine White Cell 0-2 /HPF (0-5)
[2024-11-28] MEDS: ZOFRAN 4 MG PO (03:19)
--- NOTE | 2024-11-28 03:42 | ED.GENMED ---
History of Present Illness
General
Chief Complaint: Abdominal Symptoms
Time Seen by Provider: 11/28/24 02:42
History of Present Illness
History of Present Illness:
84-year-old female with history of hypertension, hyperlipidemia, anxiety, recurrent UTI presenting for nausea and headache. Patient recently admitted to the hospital from 11/24 to 11/27. She was discharged yesterday. She was admitted for fever.
They thought that the fever was possibly from UTI. However workup is grossly unremarkable, negative CT abdomen pelvis. Patient is well in the hospital she did not have any sleep. When she got home yesterday, tried to go to bed, however had
difficulty sleeping and felt very nauseous. Her thus decided to bring her back to the hospital. She denies chest pain, difficulty breathing, abdominal pain. She does note a headache, however has history of migraines. Denies fever.
Denies additional acute medical complaints
Past History
Past History
ED Past Medical History: HTN, Hypercholesterolemia and Other (colitis, bleeding diverticuli)
ED Past Surgical History: Other
Social History
Tobacco: Non-smoker
Alcohol: Occasional
Drug: None
Personal:
Living: with family
Phy Exam
Physical Exam
Physical Exam:
General: Well-appearing, no clinical signs of dehydration, nontoxic and in no acute distress
HEENT: protecting airway
Neck: appears supple
CV: Normal heart rate, regular rhythm
Resp: No accessory muscle use, no increased work of breathing, lungs clear to auscultation bilaterally
Abd: Soft and non-distended, no tenderness to palpation
Extremities: No deformities, no swelling
Neuro: alert, no focal neurologic deficit
: deferred
Rectal: deferred
Psych: Normal affect
Skin: Intact
Course
Orders/Labs/Results
Orders:
Orders
11/28/24 02:08
Complete Blood Count/With Diff Urgent
Comprehensive Metabolic Panel Urgent
Urinalysis Reflex To Culture Urgent
Date Specimen was Collected: 11/28/24
Time Specimen was Collected: 02:07
Urine Microscopic Reflex Cult Urgent
11/28/24 03:07
0.9% Sodium Chloride 1000 ml [Nss] 1,000 ml IV BOLUS
Ondansetron HCl [Zofran] 4 mg PO NOW STA
11/28/24 03:42
Ketorolac [Toradol] 15 mg IV NOW STA
11/28/24 04:36
Ondansetron Injectable [Zofran] 4 mg IV NOW STA
11/28/24 05:35
Lorazepam [Ativan] 0.5 mg IV NOW STA
Abnormal Lab Results
11/28/24
02:08
RBC 4.01 L 10^6/uL
(4.20-5.40)
Hct 36.2 L %
(37.0-47.0)
MCH 31.2 H pg
(27.0-31.0)
Absolute Monos (auto) 0.7 H 10^3/uL
(0.1-0.6)
Immature Gran % 0.6 H %
(0-0.5)
Monocytes % 14.6 H %
(1.7-9.3)
Sodium 132 L mmol/L
(135-145)
Glucose 113 H mg/dl
(70-99)
Urine Ketones 1+ A
(Negative)
Urine Bacteria (Reflex) Few A
(Negative)
Urine Albumin (Reflex) 1+ A
(Neg - Trace)
11/28/24 02:08
11/28/24 02:08
Vital Signs
Initial and Last Documented VS:
Initial Vital Signs
Pulse Resp BP Pulse Ox
74 26 194/95 97
11/28/24 01:43 11/28/24 01:43 11/28/24 01:43 11/28/24 01:43
Last Documented Vital Signs
Temp Pulse Resp BP Pulse Ox
98.0 F 74 26 182/112 95
11/28/24 02:24 11/28/24 01:43 11/28/24 01:43 11/28/24 06:34 11/28/24 06:34
MDM/Problems Addressed
MDM/Problems Addressed:
84-year-old female with history of hypertension, hyperlipidemia, anxiety, migraines presenting for nausea. Vital signs on arrival are significant for high blood pressure, however has since improved without intervention.
On exam patient is resting comfortably, no acute distress. Patient's primary complaint at this time is nausea. She denies any vomiting prior to arrival. She denies any abdominal pain. On review of EMR, workup reviewed from recent hospital
admission, discharged yesterday. Patient at that time had negative cultures, negative CT abdomen and pelvis. There was no sign of urinary tract infection. Patient explains that she did not sleep past 3 days, which ultimately I feel is
contributing to her present nausea and headache. She is presently afebrile and nontoxic. Labs repeated, no significant change, mild decrease in sodium. Urine without any significant sign of infection. No indication to repeat imaging. No
tenderness to the abdomen. Will treat patient with IV fluids, Zofran, Toradol and reassess for improvement with ultimate plan for disposition home
06:50 -patient resting comfortably. Blood pressure is elevated, however notes that she sometimes has difficulty controlling her blood pressure. She is due for her a.m. medication. Will administer. Ultimately again feel the patient is stable for
discharge. Did discuss with patient's daughter, in agreement. Return precautions discussed.
*Pulse Oximetry
SaO2: 97
Oxygen Mode of Delivery: Room air
*Critical Care Note
Total Time (30-74mins, 75-104mins- exclusive of procedures): Not Applicable
ED Attending Note
-
Portions of this chart may have been created with voice recognition software.� Occasional wrong word or��sound alike� substitutions may have occurred due to the inherent limitations of voice recognition software.
Discharge Plan
Departure
Prescriptions:
No Action
cyanocobalamin (vitamin B-12) 1,000 mcg Tablet
1,000 mcg PO DAILYPRN PRN (Reason: Supplement)
pravastatin 20 mg Tablet
20 mg PO QPM
gabapentin 300 mg Capsule
600 mg PO BID
docusate sodium [Colace] 100 mg Capsule
100 mg PO HS
escitalopram oxalate 5 mg Tablet
5 mg PO DAILY
polyethylene glycol 3350 [Miralax] 17 gram Powder In Packet
8.5 g PO DAILY
guar gum Packet
1 tbsp PO HS
Visbiome 112.5 billion cell Capsule
1 cap PO BID
calcium carbonate 500 mg calcium (1,250 mg) Tablet
500 mg PO DAILY
diltiazem HCl 240 mg capsule,extended release 24hr
240 mg PO DAILY
allopurinol 100 mg tablet
200 mg PO DAILY
eletriptan
40 mg PO BIDPRN PRN (Reason: migraines)
Referrals:
Phillip Smith DO [Family Provider, Internal Medicine]
Interventions
Interventions:
*Risk Screen - Suicide Last Done: 11/28/24 02:27
*General Assessment Last Done: 11/28/24 02:26
*Neglect/Abuse Screening Last Done: 11/28/24 02:26
*ED- Fall Risk Assessment Last Done: 11/28/24 02:26
*ED COVID-19 Vaccine History Last Done: 11/28/24 02:26
OA-Vskqrq-Lmvnruqtri Assessment Last Done: 11/28/24 02:27
Discharge Date and Time
Print Language: [id number]
[2024-11-28] MEDS: TORADOL 15 MG IV (03:57)
[2024-11-28] MEDS: ZOFRAN 4 MG IV (04:45)
[2024-11-28] MEDS: ATIVAN 0.5 MG IV (05:54)
[2024-11-28] MEDS: CARDIZEM CD 240 MG PO (07:01)
== END 2024-11-28 07:18 | disposition home or self-care (01) ==
LOC: EMR 01:33
PROVIDERS: EMERGENCY PHYSICIAN Student in an Organized Health Care Education/Training Program; FAMILY PHYSICIAN Internal Medicine
DX: R11.0 Nausea (principal); I10 Essential (primary) hypertension; E78.00 Pure hypercholesterolemia, unspecified; F41.9 Anxiety disorder, unspecified; Z87.440 Personal history of urinary (tract) infections
CPT/HCPCS: 99283; 96374; 96375; 96361; 80053; 81003; 81015; 85025

== ENCOUNTER 2024-12-02 13:28 | Inpatient (IN) | payer MEDICARE, BC, SELFPAY ==
[2024-11-30] VITALS (7 sets, daily range): BP systolic 97–169; BP diastolic 74–120
[2024-11-30 13:36] LABS: ALT (SGPT) 29 U/L (0-35); AST (SGOT) 34 U/L (14-36); Albumin 4.9 g/dl (3.5-5.0); Alkaline Phosphatase 64 U/L (38-126); Blood Urea Nitrogen 17 mg/dl (7-17); Calcium 10.1 mg/dl (8.4-10.2); Carbon Dioxide 24 mmol/L (22-30); Chloride 94 mmol/L (98-107); Glucose 110 mg/dl (70-99); Sodium 129 mmol/L (135-145); Total Bilirubin 0.9 mg/dl (0.2-1.3); eGFR > 60.00
[2024-11-30 13:47] LABS: Troponin I < 0.012 ng/ml
[2024-11-30 14:25] LABS: % Basophils 0.3 % (0-2); % Eosinophils 0.7 % (0-6); % Immature Granulocytes 1.3 % (0-0.5); % Monocytes 14.7 % (1.7-9.3); Absolute Eosinophils 0.1 10^3/uL (0-0.7); Absolute Immature Granulocytes 0.1 10^3/uL (0-0.05); Absolute Lymphocytes 1.1 10^3/uL (1.2-3.4); Absolute Monocytes 1.1 10^3/uL (0.1-0.6); Absolute Neutrophils 5.2 10^3/uL (1.4-6.5); Hematocrit 41.1 % (37.0-47.0); Hemoglobin 14.1 g/dL (12.0-16.0); Mean Corp Hgb Conc. 34.3 g/dL (33.0-37.0); Mean Corpuscular Hgb 30.3 pg (27.0-31.0); Mean Corpuscular Volume 88.4 fL (81.0-99.0); Mean Platelet Volume 8.6 fL (7.4-10.4); Nucleated Red Blood Cells % 0 %; Platelet Count 477 10^3/uL (130-400); Red Blood Cell Count 4.65 10^6/uL (4.20-5.40); Red Cell Dist. Width 13.3 % (11.5-14.5); White Blood Cell Count 7.6 10^3/uL (4.8-10.8)
--- NOTE | 2024-11-30 16:45 | ED.GENMED ---
History of Present Illness
General
Chief Complaint: Weakness
Source: patient
Exam Limitations: none
Time Seen by Provider: 11/30/24 16:36
Nursing documentation reviewed up to this point in time: agreed with
History of Present Illness
History of Present Illness:
Patient is an 84-year-old female past medical history of hypertension hyperlipidemia diverticulitis presents to the ER for evaluation. Patient was recently admitted for questionable UTI/vaginal atrophy did have a fever during that admission. She
was admitted from [id number]. patient was also seen again in the ER 2 nights ago for nausea. Patient reports she has had progressive weakness nauseous decreased appetite and dry heaving. She also has noticed some back pain between her shoulder
blades. She denies any chest pain or shortness of breath. She reports she can barely sit up she is too weak if she can barely eat or drink.
Past History
Past History
ED Past Medical History: HTN, Hypercholesterolemia and Other (colitis, bleeding diverticuli)
ED Past Surgical History: Other
Social History
Tobacco: Non-smoker
Alcohol: Occasional
Drug: None
Personal:
Living: with family
Phy Exam
General Physical Exam
General Presentation: no apparent distress
General age: appears stated age
General Skin: warm and dry
General Habitus: normal
General Mental: alert
General Hydration: dry mucous membranes
Neurological Exam
Neurological Exam: alert and oriented x3
Musculoskeletal Exam
Musculoskeletal Exam: full ROM
Skin Exam
Skin Exam: normal color
Psychiatric Exam
Psychiatric Exam: normal mood/affect
Course
Orders/Labs/Results
Orders:
Orders
11/30/24 Breakfast
Clear Liquid
At Your Request: Full Participation
11/30/24 12:37
Electrocardiogram (*1) Urgent
Reason for Study: Chest Pain
EKG- Treatment ONCE
11/30/24 12:48
Complete Blood Count/With Diff Urgent
Comprehensive Metabolic Panel Urgent
Cortisol, Random Urgent
Comment: ADD ON
Free T4 Urgent
Serum Osmolality Urgent
Comment: ADD ON
TSH Reflex To Free T4 Urgent
Comment: ADD ON
Troponin I Urgent
Vitamin B12 Urgent
Comment: ADD ON
11/30/24 16:57
0.9% Sodium Chloride 500 ml [Nss] 500 ml IV BOLUS
11/30/24 16:58
Chest [CR Chest - 2 Views ] Urgent
Comment:
Reason For Exam: back pain
11/30/24 17:10
COVID-19 Antigen Urgent
Source: Nasal Swab
Influenza A+B Rapid Molecular Urgent
LUX Source: Nasal Swab
Specimen Description:
11/30/24 17:16
Add On- LAB Urgent
Tests Added?: tsh w / reflexive t4 and b12
11/30/24 17:36
Admit/Transfer Patient As Directed
Co-Sign Provider:
Level of Care: Observation services
Assign to:: Medical/Surgical
Physician / Group: danyel
Diagnosis: generalized weakness
Reason for Hospitalization: generalized weakness
11/30/24 17:37
Code Status As Directed
Resuscitation Status: Do not resuscitate
Reached after discussion with pt or family/Healthcare POA: Yes
DNR Bracelet Application ONCE
PRN Pain Medication Management As Directed
May give lesser potent ordered pain med per pt: Yes
preference::
Protocol:: Medication orders for pain may be administered in a
manner that supports deferring to patient preference
when the pt is:
- Requesting an ordered lesser potent pain medication.
Least to most potent pain medications are defined
as: acetaminophen < NSAID < tramadol < opioids
(morphine, oxycodone, hydromorphone).
- Requesting a lesser dose of the same medication IF
ORDERED.
- Requesting a less intrusive route of administration
if both routes are prescribed by the provider (PO <
IV).
11/30/24 20:07
Urinalysis Reflex To Culture Urgent
Date Specimen was Collected: 11/30/24
Time Specimen was Collected: 20:01
11/30/24 20:51
Acetaminophen [Tylenol] 650 mg PO Q4HPRN PRN
Bisacodyl [Dulcolax] 10 mg RECTAL [id number] PRN
Docusate W/Senna [Senokot-S] 1 tablet PO BIDPRN PRN
Enoxaparin Sodium [Lovenox] 40 mg SC QPM
Ondansetron Injectable [Zofran] 4 mg IV Q6HPRN PRN
Polyethylene Glycol Powder [Miralax] 17 grams PO DAILYPRN PRN
11/30/24 20:51
Activity As Directed
Activity Level: As Tolerated
Vital Signs As Directed
Frequency: Per unit guidelines
DX Deep Vein Thrombosis Video Routine
12/01/24 06:00
Basic Metabolic Panel IN AM
12/02/24 06:00
Basic Metabolic Panel IN AM
12/03/24 06:00
Basic Metabolic Panel IN AM
12/04/24 06:00
Basic Metabolic Panel IN AM
Abnormal Lab Results
11/30/24
12:48
Plt Count 477 H D 10^3/uL
(130-400)
Abs Immat Gran (auto) 0.1 H 10^3/uL
(0-0.05)
Absolute Lymphs (auto) 1.1 L 10^3/uL
(1.2-3.4)
Absolute Monos (auto) 1.1 H 10^3/uL
(0.1-0.6)
Immature Gran % 1.3 H %
(0-0.5)
Lymphocytes % 15.0 L %
(20.5-51.1)
Monocytes % 14.7 H %
(1.7-9.3)
Sodium 129 L mmol/L
(135-145)
Chloride 94 L mmol/L
(98-107)
Glucose 110 H mg/dl
(70-99)
Serum Osmolality 267 L mOsm/kg
(275-300)
TSH (Reflex) 5.96 H uIU/ml
(0.47-4.68)
11/30/24 12:48
11/30/24 12:48
Vital Signs
Initial and Last Documented VS:
Initial Vital Signs
Temp Pulse Resp BP Pulse Ox
97.5 F 75 16 139/120 99
11/30/24 12:33 11/30/24 12:33 11/30/24 12:33 11/30/24 12:33 11/30/24 12:33
Last Documented Vital Signs
Temp Pulse Resp BP Pulse Ox
98.4 F 75 22 168/91 96
11/30/24 23:24 11/30/24 23:24 11/30/24 23:24 11/30/24 23:24 11/30/24 23:24
Acid Tank Liner consulted with Physician
Acid Tank Liner consulted with physician?: Yes
Name of Physician Consulted: no
MDM/Problems Addressed
MDM/Problems Addressed:
As documented patient is an 84-year-old female who was recently manage for UTI, vaginal atrophy presents to the ER for evaluation. She complains of increasing weakness. She was here in the ER several days ago for dry heaving and nausea. She
complains of persistent dry heaves nausea and weakness. She reports she is barely able to eat and drink and has no energy. She denies any recent fevers. She denies any UTI symptoms presently. She presents afebrile with a normal white count
nonhypoxic lungs are clear sodium however was found to be 129 she is dry on exam small fluid bolus given. She denies any chest pain she complains of some mild upper back pain will order chest x-ray. will admit urine pending.
neg chest
*Pulse Oximetry
SaO2: 97
Oxygen Mode of Delivery: Room air
Patient hypoxic: no
*EKG
Interpretation: normal
Heart Rate: 72
Rate: normal
Rhythm: sinus
Ischemia: non-specific ST changes
*Critical Care Note
Total Time (30-74mins, 75-104mins- exclusive of procedures): Not Applicable
Data Reviewed
Review of Other/Old Records Reveals: Labs and Discharge Summary
Source: patient and spouse
ED Attending Note
-
Portions of this chart may have been created with voice recognition software.� Occasional wrong word or��sound alike� substitutions may have occurred due to the inherent limitations of voice recognition software.
Discharge Plan
Departure
Patient Disposition: Admit
Date of Disposition: 11/30/24
Time of Disposition: 17:14
Admit to: Telemetry
Admit to doctor: hospitalist
Presentation/result/management discussed w/ accepting MD/DO: Hospitalist
Patient with high blood pressure during this ER visit?: No
Condition: Fair
Covid-19: Not Applicable
Discharge Problem:
Acute hyponatremia
Interventions
Interventions:
*Risk Screen - Suicide Last Done: 11/30/24 12:33
*General Assessment Last Done: 11/30/24 16:37
*Neglect/Abuse Screening Last Done: 11/30/24 12:33
*ED- Fall Risk Assessment Last Done: 11/30/24 16:37
*ED COVID-19 Vaccine History Last Done: 11/30/24 16:37
*Nursing Disposition Last Done: 11/30/24 20:44
ED- Cardiac Assessment Last Done: 11/30/24 16:38
ED- Neurological Assessment Last Done: 11/30/24 16:38
ED- Pulmonary Assessment Last Done: 11/30/24 16:38
Discharge Date and Time
Discharge Date/Time: 11/30/24 20:44
[2024-11-30] MEDS: NSS 500 IV (17:15)
--- NOTE | 2024-11-30 17:17 | HPS.HSE ---
Addendum entered and electronically signed by Rajeev Quintana MD 11/30/24 18:50:
84-year-old with generalized weakness. Patient was admitted here from 11/24/2021 to 11/27/2021 with a UTI. She stated that after she left she did not feel quite good. Had to come back to the ER on Thursday because of nausea and vomiting. She was
given IV fluids and medicines and was discharged. After she went back she also had vomiting and diarrhea. Thursday and Thursday she did not have an appetite and poor p.o. intake. PCP prescribed antinausea medicine which she took. She was still
feeling very weak. Diarrhea stopped she is still nauseous no vomiting today. After episodes of vomiting she had some mid back pain
EKG-sinus rhythm
Stress test 11/23/2023-inconclusive for ischemia normal perfusion imaging systolic function was normal EF 66%
Dry mucosa
Not in any distress
Cardiovascular system S1-S2 appreciated
Chest clear to auscultation
Abdomen mild epigastric discomfort
No pedal edema
#Generalized weakness, nausea, poor p.o. intake
Also had vomiting and diarrhea
Check obstruction series
Add PPI BID
PRN Zofran
GI eval . If not better may need EGD.
Check troponin
Admit to observation
# Hyponatremia secondary to above
Check serum osmolality, urine osmolality and urine sodium
IV fluids while n.p.o.
# Hyperlipidemia-continue pravastatin
# Migraines-continue triptan's as needed
# Gout-continue Allopurinol
# HTN- Not sure why on Diltiazem.
# Neuropathy NOS-Continue gabapentin
# Diverticulosis with history of diverticular bleed
# Depression-Hold Lexapro
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
# Has a history of C difficile 06/10/23.
# Spinal Stenosis
# Ex-smoker
# DVT prophylaxis-Lovenox
# DNR
Called patient's daughter went to message.
Spoke to patient's updated the plan. He is also aware that she is a DNR.
Part of this note was created using voice recognition system. Occasional wrong word or��sound alike� substitutions may have inadvertently occurred due to the inherent limitations of voice recognition software. If noted kindly bring it to my
attention for correction.
Original Note:
Family Physician
-
Family Physician: Phillip Smith
Chief Complaint
-
nausea
History of Present Illness
84-year-old female past medical history of hypertension hyperlipidemia diverticulitis, gout, neuropathy presents to the ER for for nausea, poor appetite and very weak. Patient was discharged home last , but her symptoms persisted. She has
been nauseous and vomiting. She vomited until Thursday. No vomiting since then. Since then she is dry heaving. She does not have any appetite. Denied any abdominal pain. She had an 1 episode of diarrhea. Denied fever, chills. Patient denied
cough congestion chest pain or short of breath. Patient denied headache, dizzy or syncope. Patient denied dysuria, hematuria. Last night she had a pain between her shoulder blades.
Patient has hyponatremia, chest x-ray, UA is pending, COVID and flu pending. Patient received normal saline 500 mL in the ER. Admitting for further management
Medical History
Past Medical History
Past Medical History: Reports Other
Additional Past Medical History:
Gout
Neuropathy
Hyperlipidemia
Diastolic murmur
Osteoarthritis
Aortic valve stenosis
Hypertension
Varicose veins
Giant cell arteritis
Past Surgical History: Reports Other
Additional Past Surgical History:
Carpal tunnel wrist surgery
Hysterectomy
Cataract surgery
Right shoulder repair
Left shoulder replacement
Robotic ileostomy closure
Social History
Tobacco: Former Smoker
Alcohol: None
Personal:
Living: With Family
Family History
Family History: Not pertinent
Allergies / Home Medications
Allergies reflects when Allergies were last updated in [facility].
Home Medications with original date entered in [facility]
Allergy/Medication List:
Allergies
Allergy/AdvReac Type Severity Reaction Status Date / Time
hydromorphone (From Dilaudid) Allergy Unknown Verified 11/30/24 12:36
Penicillins Allergy 50 yrs Verified 11/30/24 12:36
ago>rash,swelling
of tongue
codeine (Codeine) AdvReac vomiting,di Verified 11/30/24 12:36
zziness
morphine AdvReac Nausea / Verified 11/30/24 12:36
Vomiting
oxycodone HCl (From Percocet) AdvReac vomiting,di Verified 11/30/24 12:36
zziness
Home Medications
cyanocobalamin (vitamin B-12) 1,000 mcg tablet 1,000 mcg PO DAILYPRN PRN Supplement 06/04/23
pravastatin 20 mg tablet 20 mg PO QPM High Cholesterol 06/04/23
docusate sodium 100 mg capsule (Colace) 100 mg PO HS constipation 08/06/23
gabapentin 300 mg capsule 600 mg PO BID pain 08/06/23
Lactobac no.2-Bifidobac no.1-S. thermo 112.5 billion cell capsule (Visbiome) 1 cap PO BID probiotic 10/01/24
calcium carbonate 500 mg PO DAILY Supplement 10/01/24
escitalopram oxalate 5 mg tablet 5 mg PO DAILY depression/anxiety 10/01/24
guar gum 1 tbsp PO HS Supplement 10/01/24
polyethylene glycol 3350 17 gram oral powder packet (Miralax) 8.5 g PO DAILY Constipation 10/01/24
allopurinol 100 mg tablet 200 mg PO DAILY Gout 11/25/24
diltiazem HCl 240 mg capsule,extended release 24 hr 240 mg PO DAILY Arrhythmia 11/25/24
eletriptan 40 mg PO BIDPRN PRN migraines 11/26/24
Review of Systems
-
Constitutional: Reports Fatigue
EENT: Reports No Symptoms
Respiratory: Reports No Symptoms
Cardiac: Reports No Symptoms
Abdomen/GI: Reports Nausea and Vomiting
: Reports No Symptoms
Musculoskeletal: Reports No Symptoms
Skin: Reports No Symptoms
Neurological: Reports Weakness
Endocrine: Reports No Symptoms
Hematologic/Lymphatic: Reports No Symptoms
Psych: Reports No Symptoms
Physical Exam
Vital Signs
Vital Signs
Temp Pulse Resp BP Pulse Ox
97.5 F 70 19 130/83 97
11/30/24 12:33 11/30/24 17:00 11/30/24 17:00 11/30/24 17:00 11/30/24 17:00
Physical Exam
General: Well Developed, Well Nourished and No Apparent Distress
HEENT: NormoCephalic, Moist mucous membranes and Atraumatic
Respiratory: Clear
Cardiac: S1/S2 and Regular Rhythm; No Murmur or Rub
GI: Soft, Non Tender, Non Distended and Normal Bowel Sounds; No Organomegaly
Rectal: Deferred by Provider
Musculoskeletal: No Clubbing, No Cyanosis and No Edema
Skin: No Rash
Neuro: AO x 3 and Nonfocal/grossly intact
Psych: Calm
Laboratory Results
-
11/30/24 12:48
11/30/24 12:48
Laboratory Results
Total Bilirubin 0.9 mg/dl (0.2-1.3) 11/30/24 12:48
AST 34 U/L (14-36) 11/30/24 12:48
ALT 29 U/L (0-35) 11/30/24 12:48
Alkaline Phosphatase 64 U/L (38-126) 11/30/24 12:48
Troponin I < 0.012 ng/ml 11/30/24 12:48
Data Reviewed
-
Lab Data: Labs Reviewed by me
Impression/Plan
-
# Generalized weakness/nausea/poor appetite unclear cause
- COVID negative
- Chest x-ray pending
- UA pending, influenza A and B pending
- Zofran as needed for nausea vomit
-IV PPI
- GI consulted
#Hyponatremia likely hypovolemic
- Sodium 129
- [id number] saline continued
- BMP in a.m.
-obtain serum osm, urine na and osmolality
# Hyperlipidemia
- Pravastatin continued
#Essential hypertension
Continue Cardizem
#Neuropathy, chronic back pain on gabapentin.
# Depression/anxiety
- Escitalopram continued
# Gout
- Allopurinol continued
# DVT prophylaxis
-Lovenox
CODE STATUS#
- Patient is DNR
[2024-11-30 17:46] LABS: COVID-19 Antigen Negative (Negative)
[2024-11-30 18:35] LABS: TSH Reflex To Free T4 5.96 uIU/ml (0.47-4.68)
[2024-11-30] MEDS: PROTONIX IV 40 MG IV (18:39)
[2024-11-30] MEDS: NSS (PRESERVATIVE FREE) 10 ML IV (18:39)
[2024-11-30 18:59] LABS: Osmolality Serum 267 mOsm/kg (275-300)
[2024-11-30 19:01] LABS: Vitamin B12 544 pg/ml (239-931)
[2024-11-30 19:05] LABS: Free T4 1.22 ng/dl (0.78-2.19)
[2024-11-30 19:11] LABS: Troponin I < 0.012 ng/ml
[2024-11-30 19:14] LABS: Cortisol, Random 27.4 ug/dl
[2024-11-30 20:23] LABS: Urine Albumin 2+ (Neg - Trace); Urine Bilirubin Negative (Negative); Urine Character Slightly Cloudy (Clear); Urine Color Yellow; Urine Glucose Negative (Negative); Urine Ketone 2+ (Negative); Urine Leukocyte 3+ (Negative); Urine Nitrite Negative (Negative); Urine Occult Blood 2+ (Negative); Urine Specific Gravity 1.005 (<1.030); Urine Urobilinogen Negative (Neg - 1+)
[2024-11-30 20:31] LABS: Osmolality Urine 213 mOsm/kg (300-900)
[2024-11-30 20:36] LABS: Urine Bacteria Few (Negative); Urine Squamous Cell 21-25 /LPF (Few); Urine White Cell >100 /HPF (0-5)
[2024-11-30 20:37] LABS: Urine Sodium 35 mmol/L (30-90)
[2024-11-30] MEDS: COLACE 100 MG PO (21:38)
[2024-11-30] MEDS: D5/0.9% SODIUM CHLORIDE 1000 IV (21:38)
[2024-11-30] MEDS: NEURONTIN 300 MG PO (21:38)
[2024-11-30] MEDS: LOVENOX 40 MG SC (21:38)
--- NOTE | 2024-11-30 22:00 | PTCARENOTE ---
Pullover assist from stretcher into bed room 436-01. Pt is AAOx3, denies dizziness but reports feeling 'very tired'. BP on admission elevated at 168/91. HR 75, afebrile. Pt oriented to room and care plan, call pino within reach. Bed alarm in
place d/t generalized weakness and bed in lowest position.
[2024-12-01 01:30] LABS: Troponin I 0.027 ng/ml
--- NOTE | 2024-12-01 02:00 | PTCARENOTE ---
RAINER Hagen notified that pt's troponin increased from < 0.012 to 0.027, asymptomatic. Troponin q6h ordered by RAINER Hagen starting at 0600 this AM.
[2024-12-01 07:30] VITALS: BP 157/82
[2024-12-01] MEDS: ZYLOPRIM 200 MG PO (08:02)
[2024-12-01] MEDS: NEURONTIN 300 MG PO ×3 (08:02→21:19)
[2024-12-01] MEDS: CARDIZEM CD 240 MG PO (08:02)
[2024-12-01] MEDS: NSS (PRESERVATIVE FREE) 10 ML IV (08:03)
[2024-12-01] MEDS: PROTONIX IV 40 MG IV (08:03)
[2024-12-01] MEDS: TYLENOL 650 MG PO (08:09)
--- NOTE | 2024-12-01 08:14 | CON.GI ---
Addendum entered and electronically signed by Carmen Arredondo Do, MD 12/01/24 10:48:
I saw and examined the patient.
The CLASSER's note was reviewed and I agree with the note.
Comment: Clarice is a 84yo W with h/o complex abd surgeries with colonic obstruction s/p R hemicolectomy/ileostomy 01/2023 with reversal 05/2023 who presents with NV and poor appetite. After she was d/c from in November 25, 2024 with UTI she stopped
her miralax and has not used it for past week. Yesterday there was some increase in nausea vomiting and distension. She has not had BM in many days. She lives with and is passing gas. She denies blood in stools. Last Cscope 2022 with
[facility]. Vitals stable. obese mildly distended abdomen. Well healed surgical scars intact bowel sounds. Labs reviewed. AXR reviewed mostly rectosigmoid stool burden. CT in past with diffuse colonic burden as well.
Impression
- N/V and abd distension in setting of constipation
- H/o large bowel obstruction with R hemicolectomy/ileostomy 01/2023 with reversal 05/2023
- Hyponatremia
- H/o Cdiff colitis
- UTIs
- CKD
- Gout
- Remote h/o diverticular bleeding
Recommendations
- Milk of mag enema x1 now
- Ducolax oral x1 now
- Miralax daily stressed to her importance of daily use to prevent recurrence of constipation.
- CLD, advance once better BMs
- She is UTD with Cscope last [address] Hayward
Will follow with you
Original Note:
Consultation
-
Date/Time Consultation Requested: 12/01/241821
Date/Time Consultation Performed: 12/01/24813
Requesting Provider: NOEL Byrnes
Performing Provider: Dr. Patel/NOEL Rasmussen
Reason for Consultation: vomiting/diarrhea
Medical History
Chief Complaint / HPI
Chief Complaint: nausea
History of Present Illness:
82yo presents with HTN, hyperlipidemia, gout, CKD, migraines, CDiff (06/10/23), prior diverticular bleed, bowel obstruction with extended right colectomy/ileostomy 01/[address] from that was c/w pseudomembranous colitis. Robotic closure of
ileostomy mucous fistula in 05/2023. Recent admission 09/2024 for Kelbsiella UTI, treated with Keflex. Repeat hospitalization 11/25/2024 with recurrent UTIs (3 within 1 month) treated with Bactrim as an outpatient, with nausea. Then placed on
nitrofurantoin with continued nausea,vomiting, chills and suprapubic discomfort, given dose of fosfomycin on 11/25/2024. Repeat UA on 11/25/2024 contaminated specimen. Was given 1 dose of ceftriaxone however patient was seen by ID and this was
discontinued as was a contaminated specimen, there was no evidence of UTI. It was felt that discomfort could have been from vaginal atrophy. The patient has appointment with urology 12/06/2024. The patient was discharged on 11/27/2024 patient came
back to the ER on 11/28/2024 for difficulty sleeping and nausea. No signs of UTI. She did have a headache at that time, with evidence of hypertension. She was given her blood pressure medications felt better and was able to be discharged back to
home from the ER. She presents to the emergency room again on 11/30/2024 with weakness, nausea, decreased appetite and dry heaving. We are asked to evaluate for the same. The patient has a history of constipation requiring use of 3 quarter cap of
MiraLAX or half dose of MiraLAX every day as well as Colace to facilitate bowel movement. The patient states that she was not getting this last admission. Her last bowel movement was on Thursday or Thursday. She does state that she was nauseous and
did vomit but did not tell anybody prior to discharge. After discharge she was not eating and drinking. She continued to have nausea with dry heaves. She had progressive weakness and that is what brought her into the emergency room. At the
present time she states that she is feeling improved. She is tolerating syed howard. She is passing flatus. She is awaiting her dose of MiraLAX at the present time. She did receive her Colace. She has no abdominal pain. She did not have any
abdominal pain. She is declining rectal exam to evaluate for stool impaction. She does not wish to have any suppository to facilitate bowel movement. She denies any fevers, chills, abdominal pain, melena, hematochezia, dysphagia or odynophagia.
She denies any diarrhea.
Past Medical History
Past Medical History: HTN, Hypercholesterolemia and Other (chronic constipation, colon polyps, HTN, hypercholesterolemia, colitis, diverticulosis with prior diverticular bleed, temporal arteritis, spinal stenosis, gout,)
Past Surgical History: Bowel Resection (with extended right colectomy/ileostomy s/p robotic ileostomy closure 05/2023 ) and Orthopedic (b/l shoulder surgery )
Social History
Tobacco: Former Smoker
Alcohol: Occasional (rare )
Drug: None
Personal:
Living: With Family
Employment: Retired
Family History
Family History: Other (no family hx colon CA or polyps)
Allergies / Home Medications
Allergy/AdvReac Type Severity Reaction Status Date / Time
codeine (Codeine) Allergy vomiting,di Verified 11/30/24 18:17
zziness
hydromorphone (From Dilaudid) Allergy Unknown Verified 11/30/24 12:36
morphine Allergy Nausea / Verified 11/30/24 18:17
Vomiting
oxycodone HCl (From Percocet) Allergy vomiting,di Verified 11/30/24 18:17
zziness
Penicillins Allergy 50 yrs Verified 11/30/24 12:36
ago>rash,swelling
of tongue
�Medication �Instructions �Recorded
cyanocobalamin (vitamin B-12) 1,000 mcg PO DAILYPRN PRN 06/04/23
1,000 mcg tablet Supplement
pravastatin 20 mg tablet 20 mg PO QPM High Cholesterol 06/04/23
docusate sodium 100 mg capsule 100 mg PO HS constipation 08/06/23
(Colace)
gabapentin 300 mg capsule 600 mg PO BID pain 08/06/23
calcium carbonate 500 mg PO DAILY Supplement 10/01/24
escitalopram oxalate 5 mg tablet 5 mg PO DAILY depression/anxiety 10/01/24
polyethylene glycol 3350 17 gram 8.5 g PO HS Constipation 10/01/24
oral powder packet (Miralax)
allopurinol 100 mg tablet 200 mg PO DAILY Gout 11/25/24
diltiazem HCl 240 mg 240 mg PO DAILY Arrhythmia 11/25/24
capsule,extended release 24 hr
Lactobac no.2-Bifidobac no.1-S. 1 cap PO BID 11/30/24
thermo 112.5 billion cell capsule
(Visbiome)
eletriptan 40 mg tablet 40 mg PO BIDPRN PRN migraines 11/30/24
Review of Systems
-
All other systems: A 12 pt ROS was Negative except as stated above in HPI
Vital Signs
Temp Pulse Resp BP Pulse Ox
97.5 F 68 20 157/82 95
12/01/24 07:30 12/01/24 07:30 12/01/24 07:30 12/01/24 07:30 12/01/24 07:30
Physical Exam
Exam
General: No Apparent Distress
HEENT: Anicteric
Respiratory: Clear
Cardiac: Regular Rhythm
GI: Soft, Non Tender, Non Distended and Normal Bowel Sounds
Musculoskeletal: No Edema
Skin: Warm and Dry
Neuro: AO x 3
Psych: Calm
Results
WBC 7.6 10^3/uL (4.8-10.8) 11/30/24 12:48
Hgb 14.1 g/dL (12.0-16.0) 11/30/24 12:48
Hct 41.1 % (37.0-47.0) 11/30/24 12:48
MCV 88.4 fL (81.0-99.0) 11/30/24 12:48
Plt Count 477 10^3/uL (130-400) H D 11/30/24 12:48
Absolute Neuts (auto) 5.2 10^3/uL (1.4-6.5) 11/30/24 12:48
Sodium 129 mmol/L (135-145) L 11/30/24 12:48
Potassium 4.0 mmol/L (3.5-5.1) 11/30/24 12:48
Chloride 94 mmol/L (98-107) L 11/30/24 12:48
Carbon Dioxide 24 mmol/L (22-30) 11/30/24 12:48
BUN 17 mg/dl (7-17) 11/30/24 12:48
Creatinine 0.9 mg/dL (0.6-1.0) 11/30/24 12:48
Calcium 10.1 mg/dl (8.4-10.2) 11/30/24 12:48
Total Bilirubin 0.9 mg/dl (0.2-1.3) 11/30/24 12:48
AST 34 U/L (14-36) 11/30/24 12:48
ALT 29 U/L (0-35) 11/30/24 12:48
Alkaline Phosphatase 64 U/L (38-126) 11/30/24 12:48
Diagnostic Image Results:
Abd Xray 11/30/24:
IMPRESSION:
Nonspecific bowel gas pattern without signs of obstruction.
CXR 11/30/24:
No acute cardiopulmonary process.
Prior GI Procedures:
08/11/23 FLEX SIG ([facility])- Sigmoid diverticulosis. Hemorrhoids banded x 2 at R posterior position
06/05/23 ILEOSTOMY CLOSURE
03/31/23 COLON ([facility])- Fair prep. Exam through anus to surgical stoma. Diverticulosis.
02/02/23 EX LAP/R COLECTOMY/END ILEOSTOMY/MUCOUS FISTULA CREATION
07/12/22 CT AP- No acute findings. Severe colonic diverticulosis.
10/16/21 CTA- No active GI bleed. Remonstration of 75% narrowing of celiac artery origin with poststenotic dilation slightly increased from prior
09/26/21 CT AP WO IV contrast- Suspected mild colitis of ascending colon. Extensive diverticulosis
08/14/20 COLON- Five adenomas 4-8mm in TC, AC, HF, TC, SF. Diverticulosis. Hemorrhoids
06/21/15 COLON- Diminutive TC adenoma. Diverticulosis. Hemorrhoids
Assessment / Plan
-
82yo presents with HTN, hyperlipidemia, gout, CKD, migraines, CDiff (06/10/23), prior diverticular bleed, bowel obstruction with extended right colectomy/ileostomy 01/2023 surgical path from that was c/w pseudomembranous colitis. Robotic closure of
ileostomy mucous fistula in 05/2023. Recent admissions for UTI, multiple recent antibiotics. Recent discharge on 11/27/2024 with nausea, vomiting, suprapubic tenderness felt to be secondary to UTI however antibiotics discontinued and thought to be
vaginal atrophy. Patient was to follow-up with urology 12/06/2024. Returned back to ER 11/28/2024 with weakness, hypertension and headache. Was able to be discharged home after fluids and medication for her hypertension. Patient has not had a bowel
movement since Thursday and usually does have 1 daily with the assistance of MiraLAX half capful to three-quarter capful daily as well as Colace. Has not been on this. Presents with poor p.o. intake since Thursday, nausea, dry heaves. New
hyponatremia. Is passing flatus. Refusing rectal exam to evaluate for fecal impaction. Does not wish to have suppository. Already took Colace. Will have dose of MiraLAX. Tolerating clear liquid diet. No abdominal pain. No further nausea or
vomiting at present time. WBC 7.6, hemoglobin 14.1 (up from baseline of 12.5, showing hemoconcentration), platelets 477, sodium 129, potassium 4.0, BUN 17, creatinine 0.9, glucose 110, total bilirubin 0.9, AST 34, ALT 29, alk phos 64, TSH 5.96,
free T4 1.22, COVID-negative, flu negative. Chest x-ray no acute cardiopulmonary process. X-ray abdomen nonspecific bowel gas pattern without any obstruction.
Impression:
Nausea/Dry heaves
Poor po intake
Constipation
Hyponatremia
Plan:
-Give Miralax daily
-Give Colace daily
-Continue PPI daily
-Clear liquid diet
-Correction of hyponatremia per IM
-Further recommendations to be forthcoming.
-
-
Thank you for consultation and allowing me to participate in the patient's care. Please call the television camera operator GI physician during the after hours with any questions or concerns.
[2024-12-01 08:22] LABS: Troponin I 0.014 ng/ml
[2024-12-01] MEDS: DULCOLAX 10 MG PO (10:18)
[2024-12-01] MEDS: SENOKOT-S 1 TABLET PO (10:23)
[2024-12-01] MEDS: MIRALAX 17 GRAMS PO ×2 (10:23→17:20)
[2024-12-01 10:29] LABS: Blood Urea Nitrogen 27 mg/dl (7-17); Calcium 8.5 mg/dl (8.4-10.2); Carbon Dioxide 26 mmol/L (22-30); Chloride 99 mmol/L (98-107); Estimated Creatinine Clearance 24 ml/min; Glucose 97 mg/dl (70-99); Potassium 3.6 mmol/L (3.5-5.1); Sodium 132 mmol/L (135-145); eGFR 33.94
[2024-12-01] MEDS: D5/0.9% SODIUM CHLORIDE 1000 IV (11:39)
[2024-12-01 12:39] LABS: Troponin I < 0.012 ng/ml
--- NOTE | 2024-12-01 13:58 | CM ---
manager product reviewed patient's chart and met with patient SANDHU form completed and placed on chart, patient lives with her spouse in a 1 story home, patient is independent with adl's and ambulation, no steps to enter, no dme, patient drives, home
with spouse when stable.
PCP: Dr Smith
Pharmacy; [facility]
Plan; Home with spouse when stable.
--- NOTE | 2024-12-01 14:32 | W.PN.HOSP.TC ---
Today's Communication/Plan
-
Clears
IVF
Labs in am
Assessment / Plan
Assessment / Plan
84-year-old with generalized weakness. Patient was admitted here from 11/24/2021 to 11/27/2021 with a UTI. She stated that after she left she did not feel quite good. Had to come back to the ER on Thursday because of nausea and vomiting. She was
given IV fluids and medicines and was discharged. After she went back she also had vomiting and diarrhea. Thursday and Thursday she did not have an appetite and poor p.o. intake. PCP prescribed antinausea medicine which she took. She was still
feeling very weak. Diarrhea stopped she is still nauseous no vomiting today. After episodes of vomiting she had some mid back pain
EKG-sinus rhythm
Stress test 11/23/2023-inconclusive for ischemia normal perfusion imaging systolic function was normal EF 66%
Cardiovascular system S1-S2 appreciated
Chest clear to auscultation
Abdomen mild epigastric discomfort
No pedal edema
#Generalized weakness, nausea, poor p.o. intake
Also had vomiting and diarrhea as OP
Bowel regimen ordered.
Clears
Continue PPI BID
PRN Zofran
GI eval appreciated. If not better may need EGD.
Trop neg
# JOSE- IVF. NO Retention .
# Hyponatremia secondary to above-IVF
# Hyperlipidemia-continue pravastatin
# Migraines-continue triptan's as needed
# Gout-continue Allopurinol
# HTN- Not sure why on Diltiazem.
# Neuropathy NOS-Continue gabapentin
# Diverticulosis with history of diverticular bleed
# Depression-Hold Lexapro
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
# Has a history of C difficile 06/10/23.
# Spinal Stenosis
# Ex-smoker
# DVT prophylaxis-Lovenox
# DNR
D/W RN
Anticipated Discharge: Today
Subjective/Interval History
-
Date of Service: December 01, 2024
Objective Data
-
Labs:
Laboratory Results
12/01/24
07:24
Sodium 132 L
Potassium 3.6
Chloride 99
Carbon Dioxide 26
BUN 27 H
Creatinine 1.5 H
Glucose 97
Calcium 8.5 D
Vital Signs:
Vital Signs
Temp Pulse Resp BP Pulse Ox
97.5 F 68 20 157/82 95
12/01/24 07:30 12/01/24 07:30 12/01/24 07:30 12/01/24 07:30 12/01/24 07:30
I&O
11/30/24 12/01/24 12/02/24
06:59 06:59 06:59
Intake Total 740 / 740
Balance 740 / 740
[2024-12-01 14:49] VITALS: BMI 27.8
[2024-12-01 15:19] VITALS: BP 135/87
[2024-12-01] MEDS: ZOFRAN 4 MG IV (16:48)
[2024-12-01] MEDS: PRAVACHOL 20 MG PO (17:21)
[2024-12-01] MEDS: LOVENOX 40 MG SC (17:21)
[2024-12-01] MEDS: COLACE 100 MG PO (21:19)
[2024-12-01 23:09] VITALS: BP 134/87
[2024-12-02] MEDS: D5/0.9% SODIUM CHLORIDE 1000 IV (01:51)
[2024-12-02 07:35] VITALS: BP 139/70
[2024-12-02] MEDS: ZYLOPRIM 200 MG PO (07:50)
[2024-12-02] MEDS: CARDIZEM CD 240 MG PO (07:50)
[2024-12-02] MEDS: NEURONTIN 300 MG PO ×3 (07:51→21:25)
[2024-12-02] MEDS: PROTONIX IV 40 MG IV (07:52)
[2024-12-02] MEDS: NSS (PRESERVATIVE FREE) 10 ML IV (07:52)
[2024-12-02 08:22] LABS: Hematocrit 33.9 % (37.0-47.0); Hemoglobin 11.3 g/dL (12.0-16.0); Mean Corp Hgb Conc. 33.3 g/dL (33.0-37.0); Mean Corpuscular Hgb 31.2 pg (27.0-31.0); Mean Corpuscular Volume 93.6 fL (81.0-99.0); Mean Platelet Volume 8.5 fL (7.4-10.4); Platelet Count 319 10^3/uL (130-400); Red Blood Cell Count 3.62 10^6/uL (4.20-5.40); Red Cell Dist. Width 13.8 % (11.5-14.5); White Blood Cell Count 5.7 10^3/uL (4.8-10.8)
[2024-12-02 08:23] LABS: Blood Urea Nitrogen 17 mg/dl (7-17); Calcium 8.9 mg/dl (8.4-10.2); Carbon Dioxide 25 mmol/L (22-30); Chloride 107 mmol/L (98-107); Estimated Creatinine Clearance 33 ml/min; Glucose 93 mg/dl (70-99); Magnesium 1.9 mg/dl (1.6-2.3); Potassium 3.5 mmol/L (3.5-5.1); Sodium 138 mmol/L (135-145); eGFR 49.24
[2024-12-02] MEDS: MIRALAX 17 GRAMS PO (09:59)
[2024-12-02 10:41] VITALS: BP 153/74; PULSE 65; O2SAT 96
--- NOTE | 2024-12-02 11:18 | W.PN.GI.CBS2 ---
Today's Communication / Plan
-
continue Miralax
Assessment / Plan
-
84yo W with h/o complex abd surgeries with colonic obstruction s/p R hemicolectomy/ileostomy 01/2023 with reversal 05/2023 who presents with NV and poor appetite. After she was d/c from in November 25, 2024 with UTI she stopped her miralax and has
not used it for past week. Yesterday there was some increase in nausea vomiting and distension. She has not had BM in many days. She lives with and is passing gas. She denies blood in stools. Last Cscope [address] Hayward. Vitaldemarco
stable. obese mildly distended abdomen. Well healed surgical scars intact bowel sounds. Labs reviewed. AXR reviewed mostly rectosigmoid stool burden. CT in past with diffuse colonic burden as well.
Impression:
Nausea/Dry heaves
Poor po intake
Constipation
Hyponatremia
Plan:
-She was given milk of molasses enema yesterday with Dulcolax, with soft/loose bowel movements last night
-Continue Miralax
-If moving bowels better, plan for discharge
-Patient is aware of the importance of CONTINUOUS bowel regimen -- needs to take the Miralax and Colace every day without exception to keep bowels regular
-outpatient follow up with Dr. Holley
Subjective
Subjective
Date of Service: December 02, 2024
Feeling better. She did have bowel movements last night after MOM enema and Dulcolax.
Currently drinking Miralax.
Denies any abdominal pain, nausea, vomiting; energy levels improved. She was able to get up and walk this AM.
Objective
Data Reviewed
Laboratory Data:
Laboratory Results
12/02/24 07:43
12/02/24 07:43
Laboratory Results
Magnesium 1.9 mg/dl (1.6-2.3) 12/02/24 07:43
Total Bilirubin 0.9 mg/dl (0.2-1.3) 11/30/24 12:48
AST 34 U/L (14-36) 11/30/24 12:48
ALT 29 U/L (0-35) 11/30/24 12:48
Alkaline Phosphatase 64 U/L (38-126) 11/30/24 12:48
Vital Signs and I&O:
Vital Signs
Temp Pulse Resp BP Pulse Ox
98.0 F 59 20 139/70 95
12/02/24 07:35 12/02/24 07:35 12/02/24 07:35 12/02/24 07:35 12/02/24 07:35
I&O
12/01/24 12/02/24 12/03/24
06:59 06:59 06:59
Intake Total 740 / 740 1760 / 1760
Balance 740 / 740 1760 / 1760
Physical Exam
Physical Exam
Cardiology: Normal Sinus Rhythm
Pulmonary: Clear
GI: Soft, Non Distended, Non Tender and Normal Bowel Sounds
Neuro: Non Focal
--- NOTE | 2024-12-02 12:30 | W.PN.HOSP.TC ---
Today's Communication/Plan
-
continue Miralax daily
advance to full liquids
Assessment / Plan
Assessment / Plan
Assessment:
Generalized weakness, nausea, poor p.o. intake
Also had vomiting and diarrhea as OP
- likely from constipation (overflow diarrhea)
- s/p MoM enema and Dulcolax with + BMs
- continue daily bowel regimen with Miralax
- diet: increase to full liquids
- prn Zofran
- continue PPI
JOSE and acute hyponatremia in setting of n/v (hypovolemia)
- improved with IVF
- follow BMP
Hyperlipidemia-continue pravastatin
Migraines-continue triptan's as needed
Gout-continue Allopurinol
Essential HTN - continue Diltiazem.
Neuropathy NOS-Continue gabapentin
Diverticulosis with history of diverticular bleed
Depression- Hold Lexapro until discharge
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
Has a history of C difficile 06/10/23.
Spinal Stenosis
Ex-smoker
DVT ppx: Lovenox
Code: DNR/DNI
Anticipated Discharge: Within 24 hours
Subjective/Interval History
-
Date of Service: December 02, 2024
had BMs with MoM enema and Dulcolax
tolerating clears; no further N/V/D
Objective Data
-
Labs:
Laboratory Results
12/02/24
07:43
WBC 5.7
Hgb 11.3 L
Hct 33.9 L
Plt Count 319 D
Sodium 138
Potassium 3.5
Chloride 107
Carbon Dioxide 25
BUN 17
Creatinine 1.1 H
Glucose 93
Calcium 8.9
Vital Signs:
Vital Signs
Temp Pulse Resp BP Pulse Ox
98.0 F 59 20 139/70 95
12/02/24 07:35 12/02/24 07:35 12/02/24 07:35 12/02/24 07:35 12/02/24 07:35
I&O
12/01/24 12/02/24 12/03/24
06:59 06:59 06:59
Intake Total 740 / 740 1760 / 1760
Balance 740 / 740 1760 / 1760
Physical Exam
-
General: No Apparent Distress
HEENT: Normocephalic and Atraumatic
Respiratory: Negative Wheezes
Cardiac: Regular Rhythm and S1/S2
GI: Soft and Nontender
Musculoskeletal: No Edema
Neuro: AO x 3
Psych: Calm
Data Reviewed
-
Total Time Spent with Patient (in minutes): 41
Labs: Labs Reviewed by me
--- NOTE | 2024-12-02 13:06 | CM ---
Addendum entered by Josselin Mary 12/02/24 15:55:
Patient has switched to inpatient IMM given and placed on chart. Patient's physician has ordered visiting nurses and patient has selected [facility], [facility] liaison is aware.
Original Note:
Home with spouse when stable.
Plan; Home with spouse when stable.
[2024-12-02 15:23] VITALS: BP 114/59
--- NOTE | 2024-12-02 16:30 | VNURNOTE ---
Home Health Liaison met with patient at bedside to discuss [facility] nurse/therapy, visits, schedule and homebound status. Patient is agreeable and understands that visits at home will be 2-3 x per week to assess and teach medical management. patient
plans on going to the [facility] end of next week. Liaison spoke with patient's daughter Saskia. Per Saskia, they will see how pt feels and if once home, she still feels up to going to [facility]. Daugther and pt aware that [facility] cannot see at [facility]. patient
and daughter aware that [facility] will contact them for start of care in 1-2 days after discharge from .
[facility] referral completed in [facility].
[2024-12-02] MEDS: PRAVACHOL 20 MG PO (17:13)
[2024-12-02] MEDS: LOVENOX 40 MG SC (17:14)
[2024-12-02] MEDS: DULCOLAX 10 MG PO (21:25)
[2024-12-02 23:27] VITALS: BP 150/74
[2024-12-03] MEDS: TYLENOL 650 MG PO (06:37)
[2024-12-03 07:30] VITALS: BP 137/69
[2024-12-03] MEDS: ZYLOPRIM 200 MG PO (08:26)
[2024-12-03] MEDS: NEURONTIN 300 MG PO ×3 (08:27→21:18)
[2024-12-03] MEDS: NSS (PRESERVATIVE FREE) 10 ML IV (08:29)
[2024-12-03] MEDS: PROTONIX IV 40 MG IV (08:29)
[2024-12-03] MEDS: MIRALAX 17 GRAMS PO (08:29)
[2024-12-03] MEDS: CARDIZEM CD 240 MG PO (08:31)
--- NOTE | 2024-12-03 09:15 | W.PN.HOSP.TC ---
Today's Communication/Plan
-
await GI input, possible dc today
Assessment / Plan
Assessment / Plan
Assessment:
Generalized weakness, nausea, poor p.o. intake
Also had vomiting and diarrhea as OP
- likely from constipation (overflow diarrhea)
- s/p MoM enema and Dulcolax with + BMs
- continue daily bowel regimen 2 Dulcolax + prn Miralax
- diet: full liquids, may consider advancement if ok with GI
- prn Zofran
- continue PPI
JOSE and acute hyponatremia in setting of n/v (hypovolemia)
- improved with IVF
- follow BMP
Hyperlipidemia-continue pravastatin
Migraines-continue triptan's as needed
Gout-continue Allopurinol
Essential HTN - continue Diltiazem.
Neuropathy NOS-Continue gabapentin
Diverticulosis with history of diverticular bleed
Depression- Hold Lexapro until discharge
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
Has a history of C difficile 06/10/23.
Spinal Stenosis
Ex-smoker
DVT ppx: Lovenox
Code: DNR/DNI
Anticipated Discharge: Within 24 hours
Subjective/Interval History
-
Date of Service: December 03, 2024
reports loose stools after PM Dulcolax and also cramps this morning
tolerating full liquids
Objective Data
-
Labs:
Laboratory Results
12/03/24
08:08
Sodium Pending
Potassium Pending
Chloride Pending
Carbon Dioxide Pending
BUN Pending
Creatinine Pending
Glucose Pending
Calcium Pending
Vital Signs:
Vital Signs
Temp Pulse Resp BP Pulse Ox
97.7 F 57 18 137/69 96
12/03/24 07:30 12/03/24 07:30 12/03/24 07:30 12/03/24 07:30 12/03/24 07:30
I&O
12/02/24 12/03/24 12/04/24
06:59 06:59 06:59
Intake Total 1760 / 1760 1380 / 1380
Balance 1760 / 1760 1380 / 1380
Physical Exam
-
General: No Apparent Distress
HEENT: Normocephalic and Atraumatic
Respiratory: Negative Wheezes
Cardiac: Regular Rhythm and S1/S2
GI: Soft
Genito-urinary: No Costovertebral Tender
Neuro: AO x 3
Hematologic / Lymphatic: No Lymphadenopathy
Psych: Calm
Data Reviewed
-
Total Time Spent with Patient (in minutes): 42
Labs: Labs Reviewed by me
[2024-12-03 09:26] LABS: Blood Urea Nitrogen 12 mg/dl (7-17); Calcium 8.7 mg/dl (8.4-10.2); Carbon Dioxide 25 mmol/L (22-30); Chloride 107 mmol/L (98-107); Estimated Creatinine Clearance 33 ml/min; Glucose 92 mg/dl (70-99); Sodium 136 mmol/L (135-145); eGFR 49.24
--- NOTE | 2024-12-03 12:14 | W.PN.GI.CBS2 ---
Today's Communication / Plan
-
See assessment and plan. Discussed with Dr. Goddard
Assessment / Plan
-
84yo W with h/o complex abd surgeries with colonic obstruction s/p R hemicolectomy/ileostomy 01/2023 with reversal 05/2023 who presents with NV and poor appetite. After she was d/c from in November 25, 2024 with UTI she stopped her miralax and has
not used it for past week. Yesterday there was some increase in nausea vomiting and distension. She has not had BM in many days. She lives with and is passing gas. She denies blood in stools. Last Cscope [address] Hayward. Vitals
stable. obese mildly distended abdomen. Well healed surgical scars intact bowel sounds. Labs reviewed. AXR reviewed mostly rectosigmoid stool burden. CT in past with diffuse colonic burden as well.
Impression:
Nausea/Dry heaves
Poor po intake
Constipation
Hyponatremia
-She was given milk of molasses enema 11/30 with Dulcolax, with soft/loose bowel movements last night
12/03/24 -after giving her MiraLAX and 10 mg of Dulcolax last night she has had multiple bowel movements up to 10 now watery brown
Cramps have practically resolved
Start regular diet
Still unclear if this was actually overflow. She states that she was moving her bowels throughout her admission for this questionable UTI and on the day of discharge began with multiple dry heaves and nausea
X-ray on 11/30/2024 did not show any significant constipation or obstruction
Plan: Monitor her today to ensure the bowel movements slow down, start regular diet
Upon discharge would go back to her MiraLAX regimen and could use 5 mg Dulcolax if she is not having good bowel movements
Follow-up with Dr. Holley
Subjective
Subjective
Date of Service: December 03, 2024
Patient received her MiraLAX and 10 mg of Dulcolax last night. She did get some mild cramping and has had multiple bowel movements since. Patient states roughly 10 watery brown bowel movements. Discomfort is practically gone. Still on full
liquid diet
Objective
Data Reviewed
Laboratory Data:
Laboratory Results
12/02/24 07:43
12/03/24 08:08
Laboratory Results
Magnesium 1.9 mg/dl (1.6-2.3) 12/02/24 07:43
Total Bilirubin 0.9 mg/dl (0.2-1.3) 11/30/24 12:48
AST 34 U/L (14-36) 11/30/24 12:48
ALT 29 U/L (0-35) 11/30/24 12:48
Alkaline Phosphatase 64 U/L (38-126) 11/30/24 12:48
Vital Signs and I&O:
Vital Signs
Temp Pulse Resp BP Pulse Ox
97.7 F 57 18 137/69 96
12/03/24 07:30 12/03/24 07:30 12/03/24 07:30 12/03/24 07:30 12/03/24 07:30
I&O
12/02/24 12/03/24 12/04/24
06:59 06:59 06:59
Intake Total 1760 / 1760 1380 / 1380
Balance 1760 / 1760 1380 / 1380
Physical Exam
Physical Exam
HEENT: Anicteric
Pulmonary: Clear
GI: Soft and Non Tender
Extremities: No Edema
Neuro: Non Focal
[2024-12-03 15:11] VITALS: BP 114/58
[2024-12-03 16:10] VITALS: BP 130/82
[2024-12-03] MEDS: LOVENOX 40 MG SC (16:45)
[2024-12-03] MEDS: PRAVACHOL 20 MG PO (16:45)
--- NOTE | 2024-12-03 17:19 | W.DS.TRANS ---
DC Summary - [employer]
-
Discharge Instructions:
Discharge Diagnosis/Procedures constipation causing nausea/vomiting
Diet Regular
Activity As tolerated
Bathing Restrictions None
Other Services VN
Instructions:
Stand-Alone Forms:
Changes to Home Medications: No
Discharge Medications:
DC Medications w/original date entered in [facility]
cyanocobalamin (vitamin B-12) 1,000 mcg tablet 1,000 mcg PO DAILYPRN PRN Supplement 06/04/23
pravastatin 20 mg tablet 20 mg PO QPM High Cholesterol 06/04/23
gabapentin 300 mg capsule 600 mg PO BID pain 08/06/23
calcium carbonate 500 mg PO DAILY Supplement 10/01/24
escitalopram oxalate 5 mg tablet 5 mg PO DAILY depression/anxiety 10/01/24
polyethylene glycol 3350 17 gram oral powder packet (Miralax) 8.5 g PO HS Constipation 10/01/24
allopurinol 100 mg tablet 200 mg PO DAILY Gout 11/25/24
diltiazem HCl 240 mg capsule,extended release 24 hr 240 mg PO DAILY Arrhythmia 11/25/24
Lactobac no.2-Bifidobac no.1-S. thermo 112.5 billion cell capsule (Visbiome) 1 cap PO BID Gastrointestinal Issue 11/30/24
eletriptan 40 mg tablet 40 mg PO BIDPRN PRN migraines 11/30/24
bisacodyl 5 mg tablet,delayed release (Dulcolax (bisacodyl)) 5 mg PO HS PRN Constipation #30 tabs 12/03/24
Home Medication Changes
Pending Results: No
Total time spent discharging patient (in min): 41
[2024-12-03 23:25] VITALS: BP 130/66
[2024-12-04] MEDS: PROTONIX IV 40 MG IV (07:40)
[2024-12-04 07:41] VITALS: BP 148/76
[2024-12-04] MEDS: NEURONTIN 300 MG PO (07:41)
[2024-12-04] MEDS: ZYLOPRIM 200 MG PO (07:41)
[2024-12-04] MEDS: NSS (PRESERVATIVE FREE) 10 ML IV (07:41)
[2024-12-04] MEDS: CARDIZEM CD 240 MG PO (07:43)
[2024-12-04 07:47] LABS: Blood Urea Nitrogen 12 mg/dl (7-17); Calcium 8.9 mg/dl (8.4-10.2); Carbon Dioxide 25 mmol/L (22-30); Chloride 109 mmol/L (98-107); Estimated Creatinine Clearance 40 ml/min; Glucose 85 mg/dl (70-99); Potassium 3.8 mmol/L (3.5-5.1); Sodium 138 mmol/L (135-145); eGFR > 60.00
--- NOTE | 2024-12-04 09:05 | W.PN.HOSP.TC ---
Today's Communication/Plan
-
dc to home/vn
Assessment / Plan
Assessment / Plan
Assessment:
Generalized weakness, nausea, poor p.o. intake
Also had vomiting and diarrhea as OP
- likely from constipation (overflow diarrhea)
- s/p MoM enema and Dulcolax with + BMs
- had loose BMs with aggressive bowel regimen, will de-escalate to Miralax daily + prn Dulcolax
- OP f/u Dr. Holley
JOSE and acute hyponatremia in setting of n/v (hypovolemia)
- improved with IVF
- follow BMP
Hyperlipidemia-continue pravastatin
Migraines-continue triptan's as needed
Gout-continue Allopurinol
Essential HTN - continue Diltiazem.
Neuropathy NOS-Continue gabapentin
Diverticulosis with history of diverticular bleed
Depression- Hold Lexapro until discharge
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
Has a history of C difficile 06/10/23.
Spinal Stenosis
Ex-smoker
DVT ppx: Lovenox
Code: DNR/DNI
More than 30 minutes spent in discharge including
Final examination of the patient
Summarizing hospital stay
Instructions for continuing care to all relevant caregivers
Preparation of discharge records, prescriptions, and referral forms
Total time spent (in minutes):41
Anticipated Discharge: Today
Subjective/Interval History
-
Date of Service: December 04, 2024
resting comfortably
no further loose stools (10 yesterday)
Objective Data
-
Labs:
Laboratory Results
12/04/24
06:34
Sodium 138
Potassium 3.8
Chloride 109 H
Carbon Dioxide 25
BUN 12
Creatinine 0.9
Glucose 85
Calcium 8.9
Vital Signs:
Vital Signs
Temp Pulse Resp BP Pulse Ox
98.1 F 61 16 148/76 96
12/04/24 07:41 12/04/24 07:41 12/04/24 07:41 12/04/24 07:41 12/04/24 07:41
I&O
12/03/24 12/04/24 12/05/24
06:59 06:59 06:59
Intake Total 1380 / 1380 1440 / 1440
Balance 1380 / 1380 1440 / 1440
Physical Exam
-
General: No Apparent Distress
HEENT: Normocephalic and Atraumatic
Respiratory: Negative Wheezes
Cardiac: Regular Rhythm and S1/S2
GI: Soft
Genito-urinary: No Costovertebral Tender
Neuro: AO x 3
Hematologic / Lymphatic: No Lymphadenopathy
Psych: Calm
Data Reviewed
-
Total Time Spent with Patient (in minutes): 45
Labs: Labs Reviewed by me
--- NOTE | 2024-12-04 10:28 | CM ---
Per hospitalist, patient will d/c today
[facility] accepted for services
Met w/ patient bedside, agreeable to d/c. IMM verbally reviewed, copy provided, copy on chart
Plan: Home w/ [facility]
[2024-12-04 11:12] VITALS: BP 131/67
== END 2024-12-04 12:26 | disposition home health service (06) | DRG 641 ==
LOC: 4 WEST ACU 13:28
PROVIDERS: Emergency Medicine; Hospitalist; Nurse Practitioner; Nurse Practitioner Family; Registered Nurse; ADMITTING PHYSICIAN Student in an Organized Health Care Education/Training Program; ATTENDING PHYSICIAN Internal Medicine; CONSULT PHYSICIAN Internal Medicine Gastroenterology; EMERGENCY PHYSICIAN Emergency Medicine; FAMILY PHYSICIAN Internal Medicine
DX: E87.1 Hypo-osmolality and hyponatremia (principal); N39.0 Urinary tract infection, site not specified; N17.9 Acute kidney failure, unspecified; Z11.52 Encounter for screening for COVID-19; Z66 Do not resuscitate; G43.909 Migraine, unspecified, not intractable, without status migrainosus; M10.9 Gout, unspecified; F32.A Depression, unspecified; Z87.891 Personal history of nicotine dependence; N18.9 Chronic kidney disease, unspecified; I12.9 Hypertensive chronic kidney disease with stage 1 through stage 4 chronic kidney disease, or unspecified chronic kidney disease; E78.00 Pure hypercholesterolemia, unspecified; K57.30 Diverticulosis of large intestine without perforation or abscess without bleeding; K59.09 Other constipation
CPT/HCPCS: 71046; 74019; 80048; 80053; 81003; 81015; 82533; 82607; 83735; 83930; 83935; 84300; 84439; 84443; 84484; 85025; 85027; 87086; 87502; 87811; 93005; 96360; 96361; 96374; 96375; 97162; 97166; 99283; 99285

== ENCOUNTER → 2024-12-23 13:26 | Outpatient (REF) | payer MEDICARE, BC, SELFPAY ==
[2024-12-23 15:58] LABS: Hematocrit 34.3 % (37.0-47.0); Hemoglobin 11.4 g/dL (12.0-16.0); Mean Corp Hgb Conc. 33.2 g/dL (33.0-37.0); Mean Corpuscular Volume 95.3 fL (81.0-99.0); Nucleated Red Blood Cells % 0 %; Platelet Count 263 10^3/uL (130-400); Red Cell Dist. Width 14.5 % (11.5-14.5)
[2024-12-23 16:17] LABS: Blood Urea Nitrogen 17 mg/dl (7-17); Calcium 9.1 mg/dl (8.4-10.2); Carbon Dioxide 28 mmol/L (22-30); Chloride 101 mmol/L (98-107); Glucose 140 mg/dl (70-99); Potassium 4.4 mmol/L (3.5-5.1); Sodium 134 mmol/L (135-145); eGFR 55.21
== END ==
LOC: HWLAB 13:26
PROVIDERS: ATTENDING PHYSICIAN Nurse Practitioner Adult Health; FAMILY PHYSICIAN Internal Medicine
DX: N17.9 Acute kidney failure, unspecified (principal); Z09 Encounter for follow-up examination after completed treatment for conditions other than malignant neoplasm
CPT/HCPCS: 36415; 80048; 85025

== ENCOUNTER → 2025-01-04 16:02 | Outpatient (REF) | payer MEDICARE, BC, SELFPAY ==
[2025-01-04 16:59] LABS: Urine Character Clear (Clear)
== END ==
LOC: CLAB 16:02
PROVIDERS: ATTENDING PHYSICIAN Physician Assistant
DX: N39.0 Urinary tract infection, site not specified (principal)
CPT/HCPCS: 81003; 81015; 87086

== ENCOUNTER → 2025-01-25 08:16 | Outpatient (REF) | payer MEDICARE, BC, SELFPAY ==
[2025-01-25 10:07] LABS: Hematocrit 36.8 % (37.0-47.0); Hemoglobin 11.7 g/dL (12.0-16.0); Mean Corp Hgb Conc. 31.8 g/dL (33.0-37.0); Mean Corpuscular Volume 95.3 fL (81.0-99.0); Platelet Count 287 10^3/uL (130-400); Red Cell Dist. Width 14.1 % (11.5-14.5)
[2025-01-25 11:31] LABS: TSH 6.47 uIU/ml (0.47-4.68)
[2025-01-25 14:07] LABS: Ferritin 32.5 ng/ml (11.1-264.0)
== END ==
LOC: HWLAB 08:16
PROVIDERS: ATTENDING PHYSICIAN Internal Medicine
DX: K92.2 Gastrointestinal hemorrhage, unspecified (principal); E78.2 Mixed hyperlipidemia; Z86.39 Personal history of other endocrine, nutritional and metabolic disease
CPT/HCPCS: 36415; 82728; 84443; 85027

== ENCOUNTER → 2025-01-27 10:01 | Outpatient (REF) | payer MEDICARE, BC, SELFPAY ==
[2025-01-27 14:48] LABS: ALT (SGPT) 16 U/L (0-35); AST (SGOT) 21 U/L (14-36); Albumin 4.7 g/dl (3.5-5.0); Alkaline Phosphatase 76 U/L (38-126); Blood Urea Nitrogen 19 mg/dl (7-17); Calcium 9.7 mg/dl (8.4-10.2); Carbon Dioxide 29 mmol/L (22-30); Chloride 99 mmol/L (98-107); Glucose 83 mg/dl (70-99); Potassium 4.5 mmol/L (3.5-5.1); Sodium 136 mmol/L (135-145); Total Protein 7.6 g/dl (6.3-8.2); Uric Acid 4.7 mg/dl (2.5-6.2); Very Low Density Lipoprotein 20 mg/dl (0-30); eGFR > 60.00
[2025-01-27 14:53] LABS: HDL Cholesterol 72 mg/dl; LDL Cholesterol, Calculated 117 mg/dl
[2025-01-27 14:59] LABS: Total Iron Binding Capacity 322 ug/dl (265-497)
== END ==
LOC: HWRAD 10:01
PROVIDERS: ATTENDING PHYSICIAN Internal Medicine
DX: R91.1 Solitary pulmonary nodule (principal); K92.2 Gastrointestinal hemorrhage, unspecified; E78.2 Mixed hyperlipidemia; Z87.39 Personal history of other diseases of the musculoskeletal system and connective tissue
CPT/HCPCS: 36415; 71250; 80053; 80061; 83550; 84550

== ENCOUNTER → 2025-04-26 11:12 | Outpatient (REF) | payer MEDICARE, BC, SELFPAY | LOC: HWWDC 11:12 | PROVIDERS: ATTENDING PHYSICIAN Internal Medicine | DX: Z12.31 Encounter for screening mammogram for malignant neoplasm of breast (principal) | CPT/HCPCS: 77063; 77067 ==